=== PATIENT | male | born 1990 | race Caucasian/White ===

== ENCOUNTER 2019-09-22 10:55 | Emergency (ER) | payer MEDICAID, SELFPAY ==
[2019-09-22 11:00] VITALS: BP 146/83; PULSE 97; RESP 18; TEMP 36.5; O2SAT 99; BMI 27.3
--- NOTE | 2019-09-22 11:12 | HMH.EDGENADL ---
ED Disposition Clinical Impression: Intermittent headache Disposition: Home, Self-Care Condition on Discharge: Good Instructions: DI for Headache Additional Instructions: Tylenol or ibuprofen for headache. Additional instructions for HEADACHE: See your physician as soon as possible for further evaluation. Return immediately if worsening headache, vomiting, problems with vision or speech, fever, numbness or weakness of the extremities, neck pain or stiffness. Referrals: PCP,No [Primary Care Provider] - - Critical Care Critical Care Time: No Attestation: On 09/22/19, the high probability of a clinically significant, sudden or life threatening deterioration of the following system(s) required my full and direct attention, intervention and personal management. The time I documented below is in addition to time spent performing reported procedures but includes the following listed in this critical care notation. Medical Decision Making - Jim Inquiry Pt receiving controlled substance: No Vital Signs: 09/22/19 11:00 Temperature 97.7 F Temperature Source Oral Pulse Rate [Right] 97 H Respiratory Rate 18 Blood Pressure [Right Arm] 146/83 H Blood Pressure Mean [Right Arm] 104 Blood Pressure Source [Right Arm] Automatic Cuff 02 Sat by Pulse Oximetry 99 Oxygen Delivery Method Room Air Medical Decision Narrative: At this point, the patient's headaches sound benign. Nothing in his history suggests to me meningitis or amoebic infection of the brain. I do not feel that he needs any imaging or diagnostic testing. I certainly do not feel a lumbar puncture is indicated at this point. I discussed this at length with the patient and he seems less anxious after this discussion. General Adult HPI - General Chief complaint: Headache Stated complaint: GALVAN,dizzy, ear pain Time Seen by Provider: 09/22/19 11:12 Mode of Arrival: Ambulatory Limitations: No Limitations Description of Symptoms (Recalled from ER Triage Doc. by RN): PATIENT PRESENTS WITH EPISODIC HEADACHES, AND CONSTANT LEFT EAR PAIN/PRESSURE SINCE THE OF THIS MONTH AFTER SWIMMING IN A FRIEND'S POOL. HE STATES HE BELIEVES HE HAS A BRAIN EATING EMOBIA WHICH HE READ ABOUT ON THE INTERNET. PATIENT HAS NAD AT THIS. A/O X3, GCS 15. NIH 0. NO DEFICITS OTHERWISE. PATIENT DENIES HEADACHE AT THIS TIME, BUT STATES HE HAS PRESSURE IN HIS LEFT EAR - History of Present Illness HPI narrative: The patient is concerned that he had a brain eating amoeba infection. He says that he went swimming in a friend's aboveground swimming pool on Monday 1 week ago. Since then he has had intermittent left-sided headaches and intermittent pressure behind his left ear. No fever. No diffuse headache. No stiff neck. No nausea or vomiting. No visual disturbances. No numbness or weakness. He says the pool appears clean and as far as he knows the pool is well-maintained and chlorinated. He says he suffers from severe anxiety and looked his symptoms up on the Internet and stated that he was worried that his symptoms could be from an amoeba infection of the brain. He says this is made him even more severely anxious. He becomes tearful when he said this. - Related Data Home Medications Medication Instructions Recorded Confirmed Omeprazole [Omeprazole 40mg 40 mg PO DAILY 05/02/19 09/22/19 Capsule] Allergies Allergy/AdvReac Type Severity Reaction Status Date / Time NO KNOWN ALLERGIES - NKA Allergy Mild Uncoded 02/28/17 15:28 [facility] History - Hepatitis A Screen Drug use history?: No High risk sexual behaviors?: No History of sexually transmitted infection?: No Currently employed?: No Childcare worker?: No Do you have indoor plumbing?: Yes Do you have electricity?: Yes Attestation statement:: This patient has been screened for Hepatitis A risk factors. I have reviewed the patient's past medical history: Yes - Social History Smoking Status: Current ever
[2019-09-22 11:48] VITALS: BP 139/83; PULSE 79; RESP 18; TEMP 36.6; O2SAT 100
== END 2019-09-22 11:48 | disposition home or self-care (01) ==
PROVIDERS: Emergency Provider Emergency Medicine
DX: H92.02 Otalgia, left ear (principal); R51 Headache; F17.210 Nicotine dependence, cigarettes, uncomplicated
CPT/HCPCS: 99281

== ENCOUNTER 2019-10-24 13:48 | Emergency (ER) | payer MEDICAID, SELFPAY ==
[2019-10-24 14:30] VITALS: BP 130/76; PULSE 71; RESP 19; TEMP 36.8; O2SAT 99; BMI 26.9
--- NOTE | 2019-10-24 14:40 | HMH.EDUTC ---
[facility] [place] Clinical Impression: Acute bacterial sinusitis Disposition: Home, Self-Care Condition on Discharge: Good Instructions: Sinusitis, Sinus Headache, DI for Sinusitis, Prednisone, Amoxicillin and Clavulanic Acid Additional Instructions: *Monitor Temp, Over the counter Motrin or Tylenol as directed/as needed Tylenol every 4 hours and Motrin every 6 hours (as long as your family doctor has told you that you can take it) for fever or pain. and straight to ER if unable to lower temp less than 101.0 after medication given *Warm salt water gargles may help to soothe the throat *Throat Lozenges *Warm fluids like tea with honey may help to soothe the throat *Sleep elevated *Humidifier/Vaporizer *Flonase 2 sprays in each nostril daily but be aware that it may take 2-3 days before you notice improvement Start antibiotic. Sinus infections may take 2-3 days to notice much improvement so be sure to use conservative measures as discussed for symptoms Lots of Fluids Sleep elevated Humidifer/vaporizer Augmentin can cause GI effects. Probiotics may help to prevent these symptoms Follow up with family doctor if no improvement or any worsening of symptoms Follow up IMMEDIATELY for new or worsening symptoms or no Noticeable improvement over the next 48-72 hours. 911 for difficulty breathing or swallowing Prescriptions: Amoxicillin/Potassium Clav [Augmentin 875-125 Tablet] 1 tab PO Q12H #20 tab Transmission Status: Received by [id number] Fluticasone Propionate [Flonase 50mcg nasal spray 16gm] 1 - 2 spr NS DAILY #1 bottle Transmission Status: Received by [id number] methylPREDNISolone [Medrol] 4 mg PO DIRECTED #21 pack Transmission Status: Received by [id number] Referrals: PCP,No [Primary Care Provider] - As needed Forms: Work/School Release Medical Decision Making - Jim Inquiry Pt receiving controlled substance: No Jim was queried for this patient: No Vital Signs: 10/24/19 14:30 10/24/19 14:56 Temperature 98.2 F 98.2 F Temperature Source Oral Pulse Rate 71 Pulse Rate [Right Brachial] 71 Respiratory Rate 19 19 Blood Pressure 130/76 Blood Pressure [Right Arm] 130/76 Blood Pressure Mean [Right Arm] 94 Blood Pressure Source [Right Arm] Automatic Cuff Blood Pressure Position [Right Arm] Sitting 02 Sat by Pulse Oximetry 99 Oxygen Delivery Method Room Air [facility] [place] HPI - General Stated complaint: Sore throat, cough, congestion Time Seen by Provider: 10/24/19 14:41 Mode of Arrival: Ambulatory Source of Information: Patient Limitations: No Limitations Description of Symptoms (Recalled from Triage Doc. by RN): PATIENT C/O POSSIBLE SINUS INFECTION X 2 DAYS HEENT Symptoms (Recalled from RN notes): Yes Resp Symptoms (Recalled from RN notes): No Skin Symptoms (Recalled from RN notes): No MS Symptoms (Recalled from RN notes): No Functional Status (Recalled from RN notes): WNL - History of Present Illness Provider Complaint: Paitent states that he thinks he may have a sinus infection States that he has been having sinus pain and pressure along with headache for over a week and got worse since yesterday States that today the pressure feeling is worse so he came in - Related Data Home Medications Medication Instructions Recorded Confirmed Omeprazole [Omeprazole 40mg 40 mg PO DAILY 05/02/19 10/24/19 Capsule] Previous Rx's Medication Instructions Recorded Amoxicillin/Potassium Clav 1 tab PO Q12H #20 tab 10/24/19 [Augmentin 875-125 Tablet] Fluticasone Propionate [Flonase 1 - 2 spr NS DAILY #1 bottle 10/24/19 50mcg nasal spray 16gm] methylPREDNISolone [Medrol] 4 mg PO DIRECTED #21 pack 10/24/19 Allergies Allergy/AdvReac Type Severity Reaction Status Date / Time No Known Allergies Allergy Verified 10/24/19 14:33 - Worker's Comp Is this a Worker's Comp case?: No [facility] History - Hepatitis A Screen Drug use history?: No High
[2019-10-24 14:56] VITALS: BP 130/76; PULSE 71; RESP 19; TEMP 36.8; O2SAT 99
== END 2019-10-24 15:01 | disposition home or self-care (01) ==
LOC: ER 14:02 → UTC 14:03
PROVIDERS: Emergency Provider Nurse Practitioner
DX: J01.90 Acute sinusitis, unspecified (principal); F17.210 Nicotine dependence, cigarettes, uncomplicated
CPT/HCPCS: 99201

== ENCOUNTER 2020-03-27 18:27 | Emergency (ER) | payer OTHER, SELFPAY ==
[2020-03-27 18:27] VITALS: BP 154/96; PULSE 97; RESP 18; TEMP 36.7; O2SAT 99; BMI 27.0
--- NOTE | 2020-03-27 18:30 | PC.NURSE ---
pt gone to radiology
--- NOTE | 2020-03-27 18:33 | PC.NURSE ---
notified rad of CT stroke protocol
[2020-03-27 18:35] VITALS: BMI 27.0
--- NOTE | 2020-03-27 18:35 | CT_ITS ---
PROCEDURE: CT HEAD/BRAIN WO CON CLINICAL INDICATION: R sided facial droop Right-sided facial weakness and root with tongue numbness COMPARISON: No exams were available for comparison TECHNIQUE: Axial images obtained. All CT scans at the facility use one or more dose reduction, viz: automated exposure control, ma/kV adjustment per patient size (including targeted exams where dose is matched to indication, i.e. head), or iterative reconstruction technique. FINDINGS: No midline shift, mass effect, intracranial hemorrhage, hydrocephalus, or extra-axial fluid collection is evident. The calvarium has an unremarkable appearance. No mastoid effusion. No sinus air-fluid level. IMPRESSION: No acute intracranial finding Dictated by: Chacho Hernandez MD 03/27/2020 23:05 Chacho Hernandez MD in [place] 03/27/2020 23:05
--- NOTE | 2020-03-27 18:37 | PC.NURSE ---
fsbs 93
--- NOTE | 2020-03-27 18:37 | PC.NURSE ---
pt to CT
--- NOTE | 2020-03-27 18:40 | HMH.EDNEU ---
ED Disposition Clinical Impression: Facial paralysis/[place] palsy Disposition: Home, Self-Care Condition on Discharge: Good Prescriptions: predniSONE [Deltasone 10mg tablet] 10 mg PO DAILY #45 tab Transmission Status: Pending to [id number] Referrals: PCP,No [Primary Care Provider] - - Critical Care Critical Care Time: No Attestation: On 03/27/20, the high probability of a clinically significant, sudden or life threatening deterioration of the following system(s) required my full and direct attention, intervention and personal management. The time I documented below is in addition to time spent performing reported procedures but includes the following listed in this critical care notation. Medical Decision Making - Medical Records Medical records reviewed: Yes: I reviewed the patient's medical records. - Jim Inquiry Pt receiving controlled substance: No Vital Signs: 03/27/20 18:27 Temperature 98.0 F Temperature Source Oral Pulse Rate [Right Radial] 97 H Respiratory Rate 18 Blood Pressure [Right Arm] 154/96 H Blood Pressure Mean [Right Arm] 115 Blood Pressure Source [Right Arm] Automatic Cuff Blood Pressure Position [Right Arm] Sitting 02 Sat by Pulse Oximetry 99 Oxygen Delivery Method Room Air - Lab Data Lab Results 03/27/20 18:36: WBC 12.5 H, RBC 5.66, Hgb 16.8, Hct 49.6, MCV 87.6, MCH 29.7, MCHC 33.9, RDW 13.4, Plt Count 331, MPV 7.5, Neut % (Auto) 63.5, Lymph % (Auto) 30.8, [place] % (Auto) 4.3, Eos % (Auto) 1.0, Baso % (Auto) 0.4, Neut # (Auto) 7.9 H, Lymph # (Auto) 3.8, [place] # (Auto) 0.5, Eos # (Auto) 0.1, Baso # (Auto) 0.1 03/27/20 18:36: PT 11.7, INR 1.06 03/27/20 18:36: Sodium 141, Potassium 3.6, Chloride 103, Carbon Dioxide 26, Anion Gap 15.6 H, BUN 12, Creatinine 1.00, Estimated Creat Clear 128, Estimated GFR 88, Est GFR ( Amer) 107, Glucose 95, Calcium 10.3 H 03/27/20 18:37: POC Glucose 93 Result diagrams: 03/27/20 18:36 03/27/20 18:36 Orders (Tests/Meds): ORDERS Category Date Time Status CT head/brain wo con Stat Cat Scan 03/27/20 18:35 Taken CXR --portable [XR chest portable] Stat Exams 03/27/20 19:16 Ordered Urinalysis and Microscopic Stat Lab 03/27/20 19:17 Stop Req - CT Data CT Scan: Head Time Received: 19:[address] Reviewed: Yes: I have viewed the radiologist's interpretation Preliminary Findings: Normal/NAD Medical Decision Narrative: 29yo M with unilateral paralysis of the face. Some sparing of the right forehead, though incomplete. Patient is in no acute distress otherwise the remainder of his NIHSS exam is benign. CT head is negative. 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 We will start the patient on steroids. Patient does have a white count of 12.5, which could be business banking representative of a viral etiology for his neurologic issue. Chest x-ray and urinalysis were ordered to further rule out any bacterial infection. Further discussion with the patient, he states he was evaluated by his PCP yesterday and diagnosed with viral URI. He was not started on antibiotics. Discussed Sullivan's palsy, taking steroids, eyedrops, possibly taping his right eye closed if not closing completely naturally. Patient voiced understanding. Agrees to follow-up with his PCP early next week for follow-up. Neuro HPI - General Stated Complaint: right side face numbness Time Seen by Provider: 03/27/20 18:40 Source of Information: Patient Limitations: No Limitations - History of Present Illness HPI Narrative: 29yo M without significant past medical history presents to the emergency department secondary to facial paralysis and numbness that he noticed when he woke up at 10 AM. Patient reports he went to bed normal last night. Patient further states that the ventral surface of his tongue has felt numb for a week. He states he still has a sensation of taste but it is altered from his perception of baseline. He reports mild facial numbness to the right side of his face. Megan
[2020-03-27 18:44] LABS: POC Glucose,Bedside 93 (70-110)
[2020-03-27 18:48] LABS: Basophils # 0.1 K/mm3 (0-0.2); Basophils % 0.4 % (0.1-2.0); Chloride 103 mmol/L (98-107); Eosinophils # 0.1 K/mm3 (0.0-0.4); Hematocrit 49.6 % (42.0-52.0); Hemoglobin 16.8 g/dL (14.1-18.0); Lymphocytes # 3.8 K/mm3 (0.7-4.5); Lymphocytes % 30.8 % (10-50); Mean Corpuscular HGB Conc 33.9 g/dL (31.8-35.4); Mean Corpuscular Hemoglobin 29.7 pg (27.0-31.2); Mean Corpuscular Volume 87.6 fl (80-94); Mean Platelet Volume 7.5 fl (7.4-10.4); Monocytes # 0.5 K/mm3 (0.1-1.0); Monocytes % 4.3 % (1.7-9.3); Neutrophils # 7.9 K/mm3 (1.8-7.8); Neutrophils % 63.5 % (37.0-80.0); Platelet Count 331 K/mm3 (142-424); Red Blood Count 5.66 M/mm3 (4.60-6.20); Red Cell Distribution Width 13.4 % (11.5-17.5); White Blood Count 12.5 K/mm3 (4.8-10.8)
--- NOTE | 2020-03-27 18:48 | PC.NURSE ---
pt returning from rad.
[2020-03-27 18:49] LABS: Potassium 3.6 mmoL/L (3.5-5.1); Sodium 141 mmol/L (136-145)
[2020-03-27 18:51] LABS: Blood Urea Nitrogen 12 mg/dl (9-20); Creatinine Clearance Estimated 128 mL/min (50-200); Estimated Glomerular Filt Rate 88 ml/min (>60); GFR (African American) 107 ML/MIN (>60)
[2020-03-27 18:52] LABS: Anion Gap 15.6 mEq/L (5-15); Calcium 10.3 mg/dl (8.4-10.2); Carbon Dioxide 26 mmol/L (22.0-30.0); Glucose 95 mg/dl (74-100)
[2020-03-27 18:56] LABS: Prothrombin Time 11.7 seconds (9.4-11.8)
[2020-03-27 18:57] LABS: INR 1.06 (0.9-1.1)
--- NOTE | 2020-03-27 18:59 | PC.NURSE ---
JOHN CASTLE speaking with Darinel
--- NOTE | 2020-03-27 19:02 | PC.NURSE ---
report given to veronicarn
--- NOTE | 2020-03-27 19:16 | XR_ITS ---
PROCEDURE: XR CHEST PORTABLE CLINICAL HISTORY: leukocytosis Respiratory infection, smoker COMPARISON: CR XR CHEST 2V from 05/02/2019 FINDINGS: The cardiomediastinal silhouette and pulmonary vascularity are within normal limits. The lungs are clear without infiltrates, suspicious nodules, or pleural effusions. No acute bony abnormalities. IMPRESSION: No acute findings. Dictated by: Chacho Hernandez MD 03/27/2020 23:06 Chacho Hernandez MD in [facility] 03/27/2020 23:06
[2020-03-27 19:53] VITALS: BP 120/82; PULSE 81; RESP 20; TEMP 36.6; O2SAT 98
== END 2020-03-27 19:54 | disposition home or self-care (01) ==
PROVIDERS: Emergency Provider Family Medicine
DX: G51.0 Bell's palsy (principal); R51.9 Headache, unspecified; F17.210 Nicotine dependence, cigarettes, uncomplicated
CPT/HCPCS: 70450; 71045; 80048; 82962; 85025; 85610; 99283

== ENCOUNTER 2020-06-21 17:33 | Emergency (ER) | payer OTHER, SELFPAY ==
[2020-06-21 17:54] VITALS: RESP 14; TEMP 36.8; O2SAT 97; BMI 29.5
--- NOTE | 2020-06-21 17:58 | XR_ITS ---
PROCEDURE: XR HAND RT MIN 3V CLINICAL INDICATION: LAC ON HAND Injury with pain COMPARISON: No exams were available for comparison FINDINGS: No fracture or dislocation. No lytic or blastic change. There is normal mineralization. The joint spaces are well-preserved. No significant degenerative/arthritic changes. No erosive changes evident. Other findings:No radiopaque foreign body apparent IMPRESSION: No acute findings. Dictated by: Chacho Hernandez MD 06/22/2020 05:37 Chacho Hernandez MD in [place] 06/22/2020 05:37
--- NOTE | 2020-06-21 18:46 | HMH.EDUTC ---
[facility] [place] Clinical Impression: Laceration of right hand Qualifiers: Encounter type: initial encounter Foreign body presence: without foreign body Qualified Code(s): S61.411A - Laceration without foreign body of right hand, initial encounter Disposition: Home, Self-Care Condition on Discharge: Good Instructions: How to Care for a Laceration Prior to Repair, DI for Laceration Repair -- Simple Additional Instructions: Keep the wound clean and dry. Keep a dressing on it if you are going to be getting it dirty. Watch the for signs of infection, such as redness, swelling, drainage, fever. etc. Take tylenol or ibuprofen for pain. Follow up with your regular doctor. Return in 10 days to have the sutures removed. GO TO THE ER FOR ANY WORSENING SYMPTOMS OR CONCERNS. Prescriptions: cephALEXin [cephALEXin 500mg capsule] 500 mg PO Q6H 10 Days #40 cap Transmission Status: Received by [id number] Referrals: PCP,No [Primary Care Provider] - Forms: Work/School Release Time of Disposition: 18:51 Medical Decision Making - Medical Records Medical records reviewed: No: I reviewed the patient's medical records. - Jim Inquiry Pt receiving controlled substance: No Vital Signs: 06/21/20 17:54 06/21/20 19:01 Temperature 98.3 F 98.3 F Temperature Source Oral Oral Pulse Rate 78 Respiratory Rate 14 14 Blood Pressure 150/88 H 02 Sat by Pulse Oximetry 97 Oxygen Delivery Method Room Air Room Air Orders (Tests/Meds): ED MEDICATIONS Discontinued Medications Generic Name Dose Route Start Last Admin Trade Name Freq PRN Reason Stop Dose Admin Tetanus/Reduced Diphtheria/Acell Pertussis 0.5 ml 06/21/20 18:49 06/21/20 18:57 Tet/Diphth/Pert-Adult 0.5ml Syringe IM 06/21/20 18:50 0.5 ml .ONCE ONE Administration ORDERS Category Date Time Status XR hand RT min 3V Stat Exams 06/21/20 17:58 Taken [facility] [place] HPI - General Stated complaint: Cut side of right hand Time Seen by Provider: 06/21/20 18:25 Mode of Arrival: Ambulatory Source of Information: Patient Limitations: No Limitations Description of Symptoms (Recalled from Triage Doc. by RN): cut hand HEENT Symptoms (Recalled from RN notes): No Resp Symptoms (Recalled from RN notes): No Skin Symptoms (Recalled from RN notes): Yes MS Symptoms (Recalled from RN notes): No Functional Status (Recalled from RN notes): na - History of Present Illness Provider Complaint: He states that he was washing dishes and a glass broke while his hand was down in it. He has a laceration on the lateral side of the palm of his right hand. He doesn't think that his tetatnus immunization is up to date. - Related Data Home Medications Medication Instructions Recorded Confirmed Omeprazole [Omeprazole 40mg 40 mg PO DAILY 05/02/19 03/27/20 Capsule] Previous Rx's Medication Instructions Recorded predniSONE [Deltasone 10mg tablet] 10 mg PO DAILY #45 tab 03/27/20 cephALEXin [cephALEXin 500mg 500 mg PO Q6H 10 Days #40 cap 06/21/20 capsule] Allergies Allergy/AdvReac Type Severity Reaction Status Date / Time No Known Allergies Allergy Verified 10/24/19 14:33 - Worker's Comp Is this a Worker's Comp case?: No [facility] History - Hepatitis A Screen Drug use history?: No High risk sexual behaviors?: No History of sexually transmitted infection?: No Currently employed?: No Childcare worker?: No Do you have indoor plumbing?: Yes Do you have electricity?: Yes Attestation statement:: This patient has been screened for Hepatitis A risk factors. I have reviewed the patient's past medical history: Yes - Social History Smoking Status: Current every day smoker Tobacco Type: cigarettes # Packs/Day (cigarettes): 1 Alcohol Intake: never Occupational Status: other ROS Obtained: Yes All systems reviewed & no additional complaints - Constitutional Constitutional: Denies chills, Denies fever(s) - Integumentary/Breas
[2020-06-21 19:01] VITALS: BP 150/88; PULSE 78; RESP 14; TEMP 36.8; O2SAT 97
== END 2020-06-21 19:03 | disposition home or self-care (01) ==
PROVIDERS: Emergency Provider Nurse Practitioner Family
DX: S61.411A Laceration without foreign body of right hand, initial encounter (principal); W25.XXXA Contact with sharp glass, initial encounter; Y92.010 Kitchen of single-family (private) house as the place of occurrence of the external cause; F17.210 Nicotine dependence, cigarettes, uncomplicated; Z23 Encounter for immunization
CPT/HCPCS: 12001; 73130; 90715; 96372; 99202; G0463

== ENCOUNTER 2020-06-28 11:23 | Emergency (ER) | payer OTHER, SELFPAY ==
[2020-06-28 11:25] VITALS: BP 122/88; PULSE 86; RESP 18; TEMP 36.6; O2SAT 99; BMI 28.8
[2020-06-28 11:32] VITALS: BP 122/88; PULSE 86; RESP 18; TEMP 36.6; O2SAT 99
== END 2020-06-28 11:35 | disposition home or self-care (01) ==
LOC: UTC 11:24
PROVIDERS: Emergency Provider Nurse Practitioner
DX: S61.411D Laceration without foreign body of right hand, subsequent encounter (principal)

== ENCOUNTER 2020-07-16 22:51 | Emergency (ER) | payer OTHER, SELFPAY ==
[2020-07-16 23:06] VITALS: BP 149/89; PULSE 79; RESP 18; TEMP 36.8; O2SAT 99; BMI 26.6
--- NOTE | 2020-07-16 23:09 | CT_ITS ---
PROCEDURE INFORMATION: Exam: CT Abdomen And Pelvis Without Contrast Exam date and time: 07/16/2020 11:09 PM Age: 30 years old Clinical indication: Abdominal pain; Generalized; Additional info: Ruq/right flank pain TECHNIQUE: Imaging protocol: Computed tomography of the abdomen and pelvis without contrast. Radiation optimization: All CT scans at this facility use at least one of these dose optimization techniques: automated exposure control; mA and/or kV adjustment per patient size (includes targeted exams where dose is matched to clinical indication); or iterative reconstruction. COMPARISON: No relevant prior studies available. FINDINGS: Lungs: There is a pulmonary parenchymal calcification in the right lower lobe consistent with remote granulomatous organism exposure. The visualized lung bases are otherwise clear. Pleural spaces: There are no pleural effusions present. Heart: The visualized portions of the heart are unremarkable. There is no evidence of pericardial fluid collections. Mediastinal space: Apparent mild distal esophageal wall thickening could be on the basis of incomplete distension, small hiatal hernia but cannot exclude mild esophagitis. Liver: Evaluation of the liver is limited without intravenous contrast but the liver is within normal limits for this noncontrast study. Gallbladder and bile ducts: The gallbladder is contracted/decompressed. Pancreas: Noncontrast images of the pancreas are within range of normal. Spleen: The spleen is normal. An accessory splenule is present. Adrenal glands: The adrenal glands are normal. Kidneys and ureters: The kidneys are normal. Stomach and bowel: Apparent mild gastric mural thickening could be on the basis of incomplete distension but cannot exclude gastritis or other inflammatory or infiltrative process. Correlate clinically. The duodenum is unremarkable. Lack of gastrointestinal contrast limits evaluation of bowel. The colon is normal. Unopacified loops of small bowel within range of normal. Appendix: A normal appendix is identified. Intraperitoneal space: There is no evidence of free intraperitoneal or pelvic fluid. No evidence of intraperitoneal free air. Vasculature: No abdominal aortic aneurysm. Lymph nodes: There is no evidence of pathologic adenopathy. There are a few scattered mesenteric and right lower quadrant lymph nodes. A nonspecific mesenteric lymph node measures 10.5 mm in short axis seen on series 601, image 33, minimally prominent. Urinary bladder: The bladder is normal. Reproductive: The prostate and seminal vesicles are normal. Bones/joints: There is no evidence of acute fracture. Soft tissues: There is a tiny fat-containing umbilical hernia. No soft tissue swelling is identified. Other findings: Evaluation is limited by the lack of intravenous contrast. IMPRESSION: 1. Apparent mild distal esophageal wall thickening consistent with esophagitis, incomplete distention or possibly small hiatal hernia. Cannot entirely exclude neoplastic process in the appropriate clinical setting. Correlate clinically. 2. Apparent mild gastric mural thickening could be on the basis of incomplete distension but cannot exclude gastritis or other inflammatory or infiltrative process. Correlate clinically. 3. Tiny fat- containing umbilical hernia. 4. A few scattered small nonspecific lymph nodes in the mesenteric fat of the right lower quadrant and central mesentery. A nonspecific mesenteric lymph node measuring 10.5 mm is minimally prominent. Correlate clinically regarding the possibility of mesenteric adenitis.
[2020-07-16 23:12] LABS: Microscopic, Urine URINE MICROSCOPIC (MICROSCOPIC)
[2020-07-16 23:13] LABS: Appearance,Urine CLEAR (Clear); Bilirubin,Urine Negative (Negative); Blood, Urine Negative (Negative); Color,Urine YELLOW (Yellow); Glucose,Urine (UA) Negative (Negative); Ketones,Urine Negative (Negative); Leukocyte Esterase,Urine Negative (Negative); Nitrate,Urine Negative (Negative); Protein,Urine Negative (Negative); Specific Gravity, Urine 1.025 (1.005-1.030)
[2020-07-16 23:29] LABS: Basophils # 0.1 K/mm3 (0-0.2); Basophils % 0.5 % (0.1-2.0); Eosinophils # 0.2 K/mm3 (0.0-0.4); Eosinophils % 2.1 % (0.1-12.0); Hemoglobin 14.8 g/dL (14.1-18.0); Lymphocytes # 4.2 K/mm3 (0.7-4.5); Lymphocytes % 36.8 % (10-50); Mean Corpuscular HGB Conc 34.4 g/dL (31.8-35.4); Mean Corpuscular Hemoglobin 29.1 pg (27.0-31.2); Mean Corpuscular Volume 84.8 fl (80-94); Mean Platelet Volume 7.5 fl (7.4-10.4); Monocytes # 0.8 K/mm3 (0.1-1.0); Neutrophils # 6.2 K/mm3 (1.8-7.8); Neutrophils % 53.6 % (37.0-80.0); Platelet Count 255 K/mm3 (142-424); Red Blood Count 5.08 M/mm3 (4.60-6.20); Red Cell Distribution Width 13.6 % (11.5-17.5); White Blood Count 11.5 K/mm3 (4.8-10.8)
[2020-07-16 23:31] LABS: Bacteria,Urine Trace /lpf; Mucus,Urine 1+ /lpf
[2020-07-16 23:33] LABS: Chloride 106 mmol/L (98-107); Sodium 140 mmol/L (136-145)
[2020-07-16 23:34] LABS: Potassium 3.9 mmoL/L (3.5-5.1)
[2020-07-16 23:36] LABS: Alanine Aminotransferase 46 U/L (12-78); Albumin Level 4.4 g/dl (3.5-5.0); Albumin/Globulin Ratio 1.7 (1.1-1.8); Alkaline Phosphatase 84 U/L (38-126); Anion Gap 10.9 mEq/L (5-15); Aspartate Amino Transferase 40 U/L (17-59); Bilirubin,Total 0.5 mg/dl (0.2-1.3); Blood Urea Nitrogen 14 mg/dl (9-20); Calcium 9.7 mg/dl (8.4-10.2); Carbon Dioxide 27 mmol/L (22.0-30.0); Creatinine Clearance Estimated 139 mL/min (50-200); Estimated Glomerular Filt Rate 99 ml/min (>60); GFR (African American) 120 ML/MIN (>60); Globulin 2.6 g/dL (1.3-3.2); Glucose 93 mg/dl (74-100); Lipase 127 U/L (23-300)
--- NOTE | 2020-07-17 00:33 | HMH.EDGENADL ---
ED Disposition Clinical Impression: Mesenteric adenitis Gastritis Qualifiers: Gastritis type: unspecified gastritis Chronicity: acute Gastritis bleeding: without bleeding Qualified Code(s): K29.00 - Acute gastritis without bleeding Disposition: Home, Self-Care Condition on Discharge: Good Instructions: DI for Acute Abdominal Pain Additional Instructions: Continue your omeprazole at home. Return with worsening symptoms or concerns. Follow up with a PCP and GI for your gastritis/esophagitis. Referrals: Juan Miller MD [Staff Physician] - Christina Agustin APRN [Nurse Practitioner] - Provider,MD Susana [Primary Care Provider] - - Critical Care Critical Care Time: No Attestation: On 07/16/20, the high probability of a clinically significant, sudden or life threatening deterioration of the following system(s) required my full and direct attention, intervention and personal management. The time I documented below is in addition to time spent performing reported procedures but includes the following listed in this critical care notation. Medical Decision Making - Jim Inquiry Pt receiving controlled substance: No Vital Signs: 07/16/20 23:06 Temperature 98.2 F Temperature Source Oral Pulse Rate [Right Brachial] 79 Respiratory Rate 18 Blood Pressure [Right Arm] 149/89 H Blood Pressure Mean [Right Arm] 109 Blood Pressure Source [Right Arm] Automatic Cuff Blood Pressure Position [Right Arm] Sitting 02 Sat by Pulse Oximetry 99 Oxygen Delivery Method Room Air - Lab Data Lab Results 07/16/20 23:05: Urine Color Yellow, Urine Appearance Clear, Urine pH 6.0, Ur Specific [place] 1.025, Urine Protein Negative, Urine Glucose (UA) Negative, Urine Ketones Negative, Urine Blood Negative, Urine Nitrate Negative, Urine Bilirubin Negative, Urine Urobilinogen 1.0, Ur Leukocyte Esterase Negative, Urine WBC 3-5, Urine Bacteria Trace, Urine Mucus 1+ 07/16/20 23:22: WBC 11.5 H, RBC 5.08, Hgb 14.8, Hct 43.0, MCV 84.8, MCH 29.1, MCHC 34.4, RDW 13.6, Plt Count 255, MPV 7.5, Neut % (Auto) 53.6, Lymph % (Auto) 36.8, Pratt % (Auto) 7.0, Eos % (Auto) 2.1, Baso % (Auto) 0.5, Neut # (Auto) 6.2, Lymph # (Auto) 4.2, Pratt # (Auto) 0.8, Eos # (Auto) 0.2, Baso # (Auto) 0.1 07/16/20 23:22: Sodium 140, Potassium 3.9, Chloride 106, Carbon Dioxide 27, Anion Gap 10.9, BUN 14, Creatinine 0.90, Estimated Creat Clear 139, Estimated GFR 99, Est GFR ( Amer) 120, Glucose 93, Calcium 9.7, Total Bilirubin 0.5, AST 40, ALT 46, Alkaline Phosphatase 84, Total Protein 7.0, Albumin 4.4, Globulin 2.6, Albumin/Globulin Ratio 1.7, Lipase 127 Result diagrams: 07/16/20 23:22 07/16/20 23:22 Orders (Tests/Meds): ED MEDICATIONS Generic Name Dose Route Start Last Admin Trade Name Freq PRN Reason Stop Dose Admin Lactated Ringer's 1,000 mls @ 999 mls/hr 07/16/20 23:15 07/16/20 23:24 Lactated Ringer's 1000 Ml Bag IV 07/17/20 00:15 999 mls/hr .Q1H1M JUNIOR Administration Sodium Chloride 8 ml 07/17/20 01:33 Sodium Chloride 0.9% 10ml Vial IV 08/16/20 01:32 NEEDED PRN dilute pepcid Discontinued Medications Generic Name Dose Route Start Last Admin Trade Name Freq PRN Reason Stop Dose Admin Belladonna Alkaloids 60 ml 07/17/20 01:33 Gi Cocktail 60ml Udc PO 07/17/20 01:34 ONCE ONE Famotidine 20 mg 07/17/20 01:33 Famotidine 20mg/2ml Vial IV 07/17/20 01:34 ONCE ONE Famotidine 20 mg 07/17/20 01:38 Famotidine 20mg Tablet PO 07/17/20 01:39 ONCE ONE Ketorolac Tromethamine 30 mg 07/16/20 23:11 07/16/20 23:24 Ketorolac 30mg/Ml Vial IV 07/16/20 23:12 30 mg ONCE ONE Administration Ondansetron HCl 4 mg 07/16/20 23:10 07/16/20 23:24 Ondansetron 4mg/2ml Vial IV 07/16/20 23:11 4 mg ONCE ONE Administration Medical Decision Narrative: The patient is a 30 year old otherwise healthy male who presents with right sided abdominal pain. He is awake, alert, hemodynamically
[2020-07-17 01:53] VITALS: BP 134/82; PULSE 71; RESP 18; TEMP 36.8; O2SAT 99
== END 2020-07-17 01:54 | disposition home or self-care (01) ==
PROVIDERS: Emergency Provider Emergency Medicine
DX: I88.0 Nonspecific mesenteric lymphadenitis (principal); K29.00 Acute gastritis without bleeding
CPT/HCPCS: 74176; 80053; 81001; 83690; 85025; 96365; 96375; 99283; J2405

== ENCOUNTER 2021-03-19 09:16 | Emergency (ER) | payer OTHER, SELFPAY ==
[2021-03-19 10:15] VITALS: BP 136/80; PULSE 102; RESP 21; TEMP 37.2; O2SAT 99; BMI 26.6
--- NOTE | 2021-03-19 10:36 | HMH.EDUTC ---
[facility] [place] Clinical Impression: Sinusitis Qualifiers: Sinusitis location: unspecified location Chronicity: unspecified Qualified Code(s): J32.9 - Chronic sinusitis, unspecified Disposition: Home, Self-Care Condition on Discharge: Good Instructions: Sinusitis, DI for Sinusitis, DI for Fever (Symptom) -- Adult, Amoxicillin and Clavulanic Acid Additional Instructions: *Monitor Temp, Over the counter Motrin or Tylenol as directed/as needed Tylenol every 4 hours and Motrin every 6 hours (as long as your family doctor has told you that you can take it) for fever or pain. and straight to ER if unable to lower temp less than 101.0 after medication given *Warm salt water gargles may help to soothe the throat *Throat Lozenges *Warm fluids like tea with honey may help to soothe the throat *Sleep elevated *Humidifier/Vaporizer *Flonase 2 sprays in each nostril daily but be aware that it may take 2-3 days before you notice improvement *Bromfed may cause drowsiness. Know how it effects you (your child) before driving, caring for small child, or sending your child to school. Not other antihistamines/allergy medications while taking bromfed Your throat swab was sent for culture. Those results are typically sent to your primary care. Be sure to follow up in 2-3 days with your family doctor/primary care physician if no improvement so they can review those result and treat if necessary. If you don?t have a primary care doctor, I recommend you get one but in the mean time, you will have to return to a walk in clinic Follow up IMMEDIATELY for new or worsening symptoms or no Noticeable improvement over the next 48-72 hours. 911 for difficulty breathing or swallowing You were tested for today for COVID19 your test result should be back in the next 24-48 hours, you may check the [facility] my Health portal for your results if you have trouble logging on or seeing your results you may call You was given a handout with instructions for Self Quarantine and Self isolation for while you wait on test results and what to do if they are positive If you are positive the Health Dept will be contacting you also Make sure to take your Vitamins Vit. C Vit D and Zinc if you can take them Prescriptions: Amoxicillin/Potassium Clav [Augmentin 875-125 Tablet] 1 tab PO Q12H 10 Days #20 tab Transmission Status: [id number] Brompheniramine/Pseudoephed/Dm [Bromfed Dm Cough Syrup] 5 - 10 ml PO Q46H #240 ml Transmission Status: Received by [id number] methylPREDNISolone [Medrol 4mg tab] 4 mg PO DIRECTED #21 tab Transmission Status: Received by [id number] Referrals: Armando Madden MD [Primary Care Provider] - As needed Forms: Work/School Release Time of Disposition: 10:46 Medical Decision Making - Jim Inquiry Pt receiving controlled substance: No Jim was queried for this patient: No Vital Signs: 03/19/21 10:15 Temperature 99.0 F Temperature Source Oral Pulse Rate [Right Brachial] 102 H Respiratory Rate 21 Blood Pressure [Right Arm] 136/80 Blood Pressure Mean [Right Arm] 98 Blood Pressure Source [Right Arm] Automatic Cuff Blood Pressure Position [Right Arm] Sitting 02 Sat by Pulse Oximetry 99 Oxygen Delivery Method Room Air - Lab Data Lab results reviewed: Yes: I reviewed the patient's lab results. Orders (Tests/Meds): ORDERS Category Date Time Status Covid-19 Nasal PCR ([facility]) Routine Lab 03/19/21 10:20 Received [facility] [place]PI - General Stated complaint: fever, chest congestion, soa Time Seen by Provider: 03/19/21 10:36 Mode of Arrival: Ambulatory Source of Information: Patient Limitations: No Limitations Description of Symptoms (Recalled from Triage Doc. by RN): PATIENT C/O SOA, FEVER AND DRY COUGH SINCE YESTERDAY HEENT Symptoms (Recalled from RN notes): No Resp Symptoms (Recalled from RN notes): Yes Skin Symptoms (Recalled from RN notes): No MS Symptoms (Recalled from RN notes): No Func
[2021-03-19 10:56] LABS: UTC Influenza A Antigen Negative (Negative); UTC Influenza B Antigen Negative (Negative)
[2021-03-19 11:20] VITALS: BP 136/80; PULSE 102; RESP 21; TEMP 37.2; O2SAT 99
== END 2021-03-19 11:21 | disposition home or self-care (01) ==
PROVIDERS: Emergency Provider Nurse Practitioner; PCP Family Medicine
DX: U07.1 COVID-19 (principal); J32.9 Chronic sinusitis, unspecified
CPT/HCPCS: 87804; 99202; C9803; G0463; U0003; U0005

== ENCOUNTER 2021-04-06 16:39 | Emergency (ER) | payer OTHER, SELFPAY ==
[2021-04-06 16:41] VITALS: BP 126/74; PULSE 89; RESP 18; TEMP 37; O2SAT 97; BMI 27.3
--- NOTE | 2021-04-06 17:06 | HMH.EDGENADL ---
ED Disposition Clinical Impression: Strain of right groin Disposition: Home, Self-Care Condition on Discharge: Good Instructions: DI for Groin Strain Additional Instructions: no lifting/pulling/pushing over 10lbs 1 week follow up pcp Referrals: Armando Madden MD [Primary Care Provider] - - Critical Care Critical Care Time: No Attestation: On 04/06/21, the high probability of a clinically significant, sudden or life threatening deterioration of the following system(s) required my full and direct attention, intervention and personal management. The time I documented below is in addition to time spent performing reported procedures but includes the following listed in this critical care notation. Medical Decision Making - Medical Records Medical records reviewed: Yes: I reviewed the patient's medical records. - Jim Inquiry Pt receiving controlled substance: No Vital Signs: 04/06/21 16:41 Temperature 98.6 F Temperature Source Oral Pulse Rate [Left Radial] 89 Respiratory Rate 18 Blood Pressure [Right Arm] 126/74 Blood Pressure Mean [Right Arm] 91 Blood Pressure Source [Right Arm] Automatic Cuff Blood Pressure Position [Right Arm] Sitting 02 Sat by Pulse Oximetry 97 Oxygen Delivery Method Room Air General Adult HPI - General Chief complaint: PAIN Stated complaint: wc 04/05 INJURED LOWER R SIDE,HERNIA Time Seen by Provider: 04/06/21 16:45 Mode of Arrival: Ambulatory Limitations: No Limitations Description of Symptoms (Recalled from ER Triage Doc. by RN): c/o groin pain after pulling on a cart yesterday at work - History of Present Illness HPI narrative: rt groin selvin suden onset yest at work [employer] pulling on rolling cart that became stuck on floor causing symptoms Onset (ago): day(s) (1) Radiation: non-radiation Severity: moderate Quality: aching Consistency: constant Relieving factors: immobilization Exacerbating factors: movement Associated symptoms: denies other symptoms - Related Data Home Medications Medication Instructions Recorded Confirmed Omeprazole [Omeprazole 40mg 40 mg PO DAILY 05/02/19 03/27/20 Capsule] Previous Rx's Medication Instructions Recorded Amoxicillin/Potassium Clav 1 tab PO Q12H 10 Days #20 tab 03/19/21 [Augmentin 875-125 Tablet] Brompheniramine/Pseudoephed/Dm 5 - 10 ml PO Q46H #240 ml 03/19/21 [Bromfed Dm Cough Syrup] methylPREDNISolone [Medrol 4mg 4 mg PO DIRECTED #21 tab 03/19/21 tab] Allergies Allergy/AdvReac Type Severity Reaction Status Date / Time No Known Allergies Allergy Verified 07/27/20 09:42 [facility] History - Hepatitis A Screen Drug use history?: No High risk sexual behaviors?: No History of sexually transmitted infection?: No Currently employed?: No Childcare worker?: No Do you have indoor plumbing?: Yes Do you have electricity?: Yes Attestation statement:: This patient has been screened for Hepatitis A risk factors. - Social History Smoking Status: Current every day smoker Tobacco Type: cigarettes # Packs/Day (cigarettes): 1 Alcohol Intake: never Substance Use Type: denies use Occupational Status: other ROS Obtained: Yes All systems reviewed & no additional complaints Physical Exam - General General appearance: alert, in no apparent distress - Respiratory Respiratory exam: Absent: respiratory distress, wheezes, stridor - Cardiovascular Cardiovascular exam: Present: regular rate. Absent: bradycardia, tachycardia - Abdominal Exam Abdominal exam: Present: soft. Absent: distention, tenderness - exam: Present: other (rt groin ttp, no hernia, nml gu appearance w/o complaints) - Neurological Exam Neurological exam: Present: alert, oriented X3, CN II-XII intact - Skin Skin exam: Present: warm, intact, normal color. Absent: rash
[2021-04-06 17:32] VITALS: BP 124/76; PULSE 78; RESP 20; TEMP 37; O2SAT 97
== END 2021-04-06 17:33 | disposition home or self-care (01) ==
PROVIDERS: Emergency Provider Emergency Medicine; PCP Family Medicine
DX: S76.211A Strain of adductor muscle, fascia and tendon of right thigh, initial encounter (principal); X50.0XXA Overexertion from strenuous movement or load, initial encounter; Y92.69 Other specified industrial and construction area as the place of occurrence of the external cause; Y99.0 Civilian activity done for income or pay
CPT/HCPCS: 99281

== ENCOUNTER 2021-09-17 11:21 | Emergency (ER) | payer OTHER, SELFPAY ==
--- NOTE | 2021-09-17 11:29 | XR_ITS ---
FINAL REPORT CLINICAL HISTORY: FALL FINDINGS: LEFT ANKLE Three views were obtained. There is no acute fracture or dislocation. The joint spaces appear normal. No soft tissue abnormality is identified. IMPRESSION: No acute process. Reviewed, Interpreted and Dictated by Tai Graham III, MD Transcribed by Nica Gonzalez Authenticated and [facility]
[2021-09-17 12:00] VITALS: BP 127/68; PULSE 75; RESP 17; TEMP 36.8; O2SAT 99; BMI 28.1
--- NOTE | 2021-09-17 12:22 | HMH.EDUTC ---
[facility] [place] Disposition Clinical Impression: Ankle sprain Qualifiers: Encounter type: initial encounter Involved ligament of ankle: unspecified ligament Laterality: left Qualified Code(s): S93.402A - Sprain of unspecified ligament of left ankle, initial encounter Disposition: Home, Self-Care Condition on Discharge: Good Instructions: Ankle Sprain, DI for Ankle Sprain, How To Perform RICE (Rest, Ice, Compress, Elevate), How to Apply an Gustavo Wrap Additional Instructions: *weight bearing as tolerated *RICE, Rest the extremity, Ice 15-20 minutes 3-4 times daily, Compress- wear the gustavo wrap as discussed as much as possible to help reduce swelling and pain, Elevate the extremity when at rest *Gustavo wrap and splint is for support and help control swelling, use it except in the shower. Be sure that is not to tight but not to loose either *Elevate when resting *Ibuprofen 600-800mg every 6-8 hours as needed for pain an inflammation. If need something more can take Tylenol in between doses of Ibuprofen to help Immediately follow up with your family doctor for new or worsening of symptoms, or no noticeable improvement over the next 3-5 days Call back to the [facility] later this evening for the official reading of your xray Follow up with Dr Barrow in Orthopedics if needed Referrals: Armando Madden MD [Primary Care Provider] - As needed Forms: Work/School Release Medical Decision Making - Jim Inquiry Pt receiving controlled substance: No Jim was queried for this patient: No Vital Signs: 09/17/21 12:00 09/17/21 13:01 Temperature 98.3 F 98.3 F Temperature Source Oral Pulse Rate 75 Pulse Rate [Right Brachial] 75 Respiratory Rate 17 17 Blood Pressure 127/68 Blood Pressure [Right Arm] 127/68 Blood Pressure Mean [Right Arm] 87 Blood Pressure Source [Right Arm] Automatic Cuff Blood Pressure Position [Right Arm] Sitting 02 Sat by Pulse Oximetry 99 Oxygen Delivery Method Room Air - Radiology Data #1 Image(s): Ankle Image Reviewed: Yes I reviewed the patient's radiology image Preliminary Findings: No Fracture Seen [facility] [place] HPI - General Stated complaint: [id number] left foot pain Time Seen by Provider: 09/17/21 12:22 Mode of Arrival: Ambulatory Source of Information: Patient Limitations: No Limitations Description of Symptoms (Recalled from Triage Doc. by RN): PATIENT REPORTS HE TWISTED HIS LEFT ANKLE THIS MORNING HEENT Symptoms (Recalled from RN notes): No Resp Symptoms (Recalled from RN notes): No Skin Symptoms (Recalled from RN notes): No MS Symptoms (Recalled from RN notes): Yes Functional Status (Recalled from RN notes): WNL - History of Present Illness Provider Complaint: Patient states that he was coming down ladder this morning and as he stepped off he twisted his left ankle States that ever since he has been having pain when he moves the ankle certain ways or walks on it so he came in to get it checked - Related Data Home Medications Medication Instructions Recorded Confirmed Omeprazole [Omeprazole 40mg 40 mg PO DAILY 09/17/21 09/17/21 Capsule] Allergies Allergy/AdvReac Type Severity Reaction Status Date / Time No Known Allergies Allergy Verified 07/27/20 09:42 - Worker's Comp Is this a Worker's Comp case?: No [facility] History - Hepatitis A Screen Attestation statement:: This patient has been screened for Hepatitis A risk factors. I have reviewed the patient's past medical history: Yes - Social History Smoking Status: Current every day smoker Tobacco Type: cigarettes # Packs/Day (cigarettes): 1 Alcohol Intake: never Substance Use Type: denies use Occupational Status: other ROS Obtained: Yes All systems reviewed & no additional complaints, Yes Systems reviewed as appropriate & no additional complaints - Constitutional Constitutional: Reports system reviewed and no additional complaints, except as docu, Denies body ache, Denies chills, Denies fever(s) - ENT Ears, Nose,
[2021-09-17 13:01] VITALS: BP 127/68; PULSE 75; RESP 17; TEMP 36.8; O2SAT 99
== END 2021-09-17 13:11 | disposition home or self-care (01) ==
PROVIDERS: Emergency Provider Nurse Practitioner; PCP Family Medicine
DX: S93.402A Sprain of unspecified ligament of left ankle, initial encounter (principal); F17.210 Nicotine dependence, cigarettes, uncomplicated; X50.1XXA Overexertion from prolonged static or awkward postures, initial encounter
CPT/HCPCS: 73610; 99213; G0463

== ENCOUNTER 2021-11-03 09:13 | Emergency (ER) | payer OTHER, SELFPAY ==
[2021-11-03 11:19] VITALS: BP 117/86; PULSE 64; RESP 19; TEMP 36.7; O2SAT 99; BMI 24.3
--- NOTE | 2021-11-03 11:36 | EXP.UTC ---
Discharge Plan Disposition Patient Disposition: Home, Self-Care Condition: Good Prescriptions Prescriptions: New azithromycin [Zithromax Z-Jus] 250 mg tablet 250 mg PO DAILY 6 Days Qty: 6 0RF Rx Instructions: start on day 2 of therapy methylprednisolone [Medrol (Jus)] 4 mg tablets,dose pack 4 mg PO DAILY Qty: 21 0RF No Action omeprazole 40 MG capsule,delayed release(DR/EC) 40 mg PO DAILY Referrals Follow up/Referrals: Armando Madden MD [Primary Care Provider] - Enter time for follow up Activity Restrictions/Add. Instructions Additional Instructions/Restrictions: *Monitor Temp, Over the counter Motrin or Tylenol as directed/as needed Tylenol every 4 hours and Motrin every 6 hours (as long as your family doctor has told you that you can take it) for fever or pain. and straight to ER if unable to lower temp less than 101.0 after medication given *Warm salt water gargles may help to soothe the throat *Throat Lozenges? *Warm fluids like tea with honey may help to soothe the throat? *Sleep elevated *Humidifier/Vaporizer Follow up IMMEDIATELY for new or worsening symptoms or no Noticeable improvement over the next 48-72 hours. 911 for difficulty breathing or swallowing You were tested for today for COVID19 your test result should be back in the next 24-48 hours, you may check your result on the [facility] My Health Portal Make sure to take your Vitamins Vit. C Vit D and Zinc if you can take them Clinical Impressions Clinical Impression: Sinusitis Instructions Patient Instructions: DI for Sinusitis Discharge ED Provider: Destiny Lindquist [facility] General Stated complaint: Sinus pain, SOA Time Seen by Provider: 11/03/21 11:10 Mode of Arrival: Ambulatory Source of Information: Patient Limitations: No Limitations Description of Symptoms (Recalled from Triage Doc. by RN): patient comes in with complaints of upper respiratory symptoms, and sinus pressure. symptoms began yesterday. HEENT Symptoms (Recalled from RN notes): Yes Resp Symptoms (Recalled from RN notes): Yes Skin Symptoms (Recalled from RN notes): No MS Symptoms (Recalled from RN notes): No Functional Status (Recalled from RN notes): n/a History of Present Illness Provider Complaint: Patient state that has been having sinus issues on and off for about a week got worse yesterday States that he is having pressure behind his eyes and feels like it is trying to move into his chest State that he isnt coughing or anything yet but feels like at times he can feel the drainage in the back of his throat Related Data Home Medications Medication Instructions Recorded Confirmed omeprazole 40 mg capsule,delayed 40 mg PO DAILY GERD 09/17/21 09/17/21 release Previous Rx's Medication Instructions Recorded azithromycin 250 mg tablet 250 mg PO DAILY 6 days #6 tabs 11/03/21 (Zithromax Z-Jus) methylprednisolone 4 mg tablets in 4 mg PO DAILY #21 tabs 11/03/21 a dose pack (Medrol (Jus)) Allergies Allergy/AdvReac Type Severity Reaction Status Date / Time No Known Allergies Allergy Verified 07/27/20 09:42 Worker's Comp Is this a Worker's Comp case?: No PFSH PFSH Social History Smoking Status: Current every day smoker tobacco type: cigarettes packs per day: 1 alcohol intake: never substance use type: denies use current occupational status: other number of children: 1 current occupational exposures/hazards: No ROS Obtained: Yes All systems reviewed & no additional complaints except as documented and Yes Systems reviewed as appropriate & no additional complaints except as documented ENT Ears, Nose, Mouth, and Throat: Reports system reviewed and no additional complaints, except as documented, Reports sinus pain, Reports sinus pressure and Reports sore throat Cardiovascular Cardiovascular: Reports system reviewed and no additional complaints, except as documented and Reports as per HPI Respiratory
[2021-11-03 11:58] VITALS: BP 117/86; PULSE 64; RESP 19; TEMP 36.7
== END 2021-11-03 11:59 | disposition home or self-care (01) ==
PROVIDERS: Emergency Provider Nurse Practitioner; PCP Family Medicine
DX: J32.9 Chronic sinusitis, unspecified (principal); F17.210 Nicotine dependence, cigarettes, uncomplicated
CPT/HCPCS: 99212; C9803; G0463; U0003; U0005

== ENCOUNTER 2021-11-20 19:31 | Emergency (ER) | payer OTHER, SELFPAY ==
[2021-11-20 19:33] VITALS: BP 116/76; PULSE 71; RESP 16; TEMP 36.8; O2SAT 100; BMI 25.1
[2021-11-20 20:00] VITALS: BP 114/68; PULSE 68; O2SAT 100
--- NOTE | 2021-11-20 20:20 | HMH.EDABDPAI ---
Discharge Plan Disposition Patient Disposition: Home, Self-Care Chief Complaint: Abdominal Pain Prescriptions Prescriptions: No Action omeprazole 40 MG capsule,delayed release(DR/EC) 40 mg PO DAILY Referrals Follow up/Referrals: Armando Madden MD [Primary Care Provider] - See instructions Clinical Impressions Clinical Impression: Inguinal hernia Instructions Patient Instructions: DI for Groin Hernia Discharge ED Provider: Tru Canas Abdominal Pain HPI General Chief Complaint: Abdominal Pain Stated Complaint: possible Hernia Time Seen by Provider: 11/20/21 20:21 Mode of Arrival: Family Vehicle Source of Information: Patient and Medical Record Limitations: No Limitations Description of Symptoms (Recalled from ER Triage Doc. by RN): Pt reports he is concerned he has a hernia. States on when he was lifting heavy equipment he felt a sharp pain in his R inguinal area. Report the pain went away after he stopped lifting. Then he noted his R testical was swollen and tender. This went on until this morning and now pt states his testicle is back to normal. He denies any pain n/v/d, fever, or chills. He states I had time to come get it checked out now . No tenderness with palpation, no nodules or lumps noted in the inguinal area at this time. History of Present Illness HPI narrative: acute rt inguinal pain after lifting with pain at that time to rt testicle - now resolved complaint: abdominal pain Onset (ago): day(s) Consistency: intermittent and now resolved Location: RLQ Severity: moderate Radiation: RLQ Context: recent injury Associated symptoms: denies other symptoms Treatments prior to arrival: NSAIDs Related Data Home Medications Medication Instructions Recorded Confirmed omeprazole 40 mg capsule,delayed 40 mg PO DAILY GERD 09/17/21 11/20/21 release Allergies Allergy/AdvReac Type Severity Reaction Status Date / Time No Known Allergies Allergy Verified 07/27/20 09:42 [facility] Social History (Updated 11/08/21 @ 20:58 by Destiny Lindquist APRN) Smoking Status: Never smoker alcohol intake: never substance use type: denies use current occupational status: other Travel in the last 8 weeks: None number of children: 1 current occupational exposures/hazards: No ROS Obtained: Yes All systems reviewed & no additional complaints except as documented Physical Exam General General appearance: alert Head Head exam: normocephalic Eye Eye exam: Present PERRL and EOMI ENT ENT exam: Present mucous membranes moist Neck Neck exam: Present trachea midline Respiratory Respiratory exam: Present normal lung sounds bilaterally Cardiovascular Cardiovascular exam: Present regular rate; Absent systolic murmur Abdominal Exam Abdominal exam: Present soft; Absent guarding or rebound Abdominal tenderness: Present RLQ and mild exam: Present normal testicular lie and circumcised; Absent testicular tenderness or scrotal swelling Expanded Exam exam: Present inguinal hernia Extremities Exam Extremities exam: Present full ROM Back Exam Back exam: Absent CVA tenderness (R) Neurological Exam Neurological exam: Present alert, oriented X3 and CN II-XII intact Psychiatric Psychiatric exam: Present normal affect Skin Skin exam: Absent rash Lymphatic Lymphatic Findings: no adenopathy Medical Decision Making Medical Records Medical records reviewed: Yes I reviewed the patient's medical records. Jim Inquiry Pt receiving controlled substance: No Vital Signs: 11/20/21 19:33 Temperature 98.3 F Temperature Source Oral Pulse Rate [Right] 71 Respiratory Rate 16 Blood Pressure [Right Arm] 116/76 Blood Pressure Mean [Right Arm] 89 Blood Pressure Source [Right Arm] Automatic Cuff 02 Sat by Pulse Oximetry 100 Oxygen Delivery Method Room Air Lab Data Lab results reviewed: Yes I reviewed the patient's lab results. Lab Results 11/20/21 19:37: Urine Color Y
--- NOTE | 2021-11-20 20:25 | CT_ITS ---
PROCEDURE INFORMATION: Exam: CT Abdomen And Pelvis Without Contrast Exam date and time: 11/20/2021 8:59 PM Age: 31 years old Clinical indication: Abdominal pain; Localized; Right lower quadrant (rlq); Additional info: R inguinal pain, R testicle swelling 2 days ago TECHNIQUE: Imaging protocol: Computed tomography of the abdomen and pelvis without contrast. Radiation optimization: All CT scans at this facility use at least one of these dose optimization techniques: automated exposure control; mA and/or kV adjustment per patient size (includes targeted exams where dose is matched to clinical indication); or iterative reconstruction. COMPARISON: CT ABDOMEN PELVIS WO CON 07/17/2020 12:27 AM FINDINGS: Liver: Parenchymal enhancement is not evaluated without contrast. No hepatomegaly. Gallbladder and bile ducts: No calcified stones. No ductal dilation. Pancreas: Parenchymal enhancement is not evaluated without contrast. No ductal dilation. Spleen: Parenchymal enhancement is not evaluated without contrast. No splenomegaly. Adrenal glands: No mass. Kidneys and ureters: Parenchymal enhancement is not evaluated without contrast. No hydronephrosis. Stomach and bowel: No obstruction. No mucosal thickening. Appendix: No evidence of appendicitis. Intraperitoneal space: No free air. No significant fluid collection. Vasculature: Limited evaluation without contrast. No abdominal aortic aneurysm. Lymph nodes: No enlarged lymph nodes. Urinary bladder: No acute abnormality. Reproductive: No acute abnormality. Bones/joints: No acute fracture. Soft tissues: Limited evaluation without contrast. No significant soft tissue swelling. IMPRESSION: No acute intra-abdominal findings. If there is concern for testicular pathology, targeted ultrasound is recommended for further evaluation.
[2021-11-20 20:29] LABS: Microscopic, Urine URINE MICROSCOPIC (MICROSCOPIC)
[2021-11-20 20:30] VITALS: BP 137/92; PULSE 78; O2SAT 99
[2021-11-20 20:33] LABS: Appearance,Urine CLEAR (Clear); Bilirubin,Urine Negative (Negative); Blood, Urine Negative (Negative); Color,Urine YELLOW (Yellow); Glucose,Urine (UA) Negative (Negative); Ketones,Urine Negative (Negative); Leukocyte Esterase,Urine Negative (Negative); Nitrate,Urine Negative (Negative); PH,Urine 5.5 (5.0-8.5); Protein,Urine Negative (Negative); Specific Gravity, Urine >= 1.030 (1.005-1.030); Urobilinogen,Urine 0.2 EU/dl (0.2)
--- NOTE | 2021-11-20 20:37 | PC.NURSE ---
at BS speaking with pt
[2021-11-20 20:44] LABS: Basophils # 0.2 K/mm3 (0-0.2); Basophils % 1.5 % (0.1-2.0); Eosinophils # 0.2 K/mm3 (0.0-0.4); Eosinophils % 1.8 % (0.1-12.0); Hematocrit 46.1 % (42.0-52.0); Hemoglobin 15.3 g/dL (14.1-18.0); Lymphocytes # 3.6 K/mm3 (0.7-4.5); Lymphocytes % 34.9 % (10-50); Mean Corpuscular HGB Conc 33.1 g/dL (31.8-35.4); Mean Corpuscular Volume 90.8 fl (80-94); Mean Platelet Volume 7.9 fl (7.4-10.4); Monocytes # 0.6 K/mm3 (0.1-1.0); Neutrophils # 5.7 K/mm3 (1.8-7.8); Neutrophils % 55.8 % (37.0-80.0); Platelet Count 294 K/mm3 (142-424); Red Blood Count 5.08 M/mm3 (4.60-6.20); Red Cell Distribution Width 13.4 % (11.5-17.5); White Blood Count 10.2 K/mm3 (4.8-10.8)
[2021-11-20 20:45] LABS: Bacteria,Urine Trace /lpf; Mucus,Urine 1+ /lpf; RBC,Urine Occasional #/hpf (0-3); Squamous Epithelial Cell,Urine Occasional #/hpf (0-5); WBC,Urine Occasional #/hpf (0-3)
--- NOTE | 2021-11-20 20:45 | PC.NURSE ---
pt refused to keep PIV in place. Able to obtain blood work and then he stated last time I had one I had some air bubbles go in and that won't be happening again . Pt also now states he has IV contrast allergy d/t a shellfish allergy history . Refuses pre-treatment. Reusing CT at this time. notified
[2021-11-20 20:54] LABS: Alanine Aminotransferase 36 U/L (12-78); Albumin Level 4.3 g/dl (3.5-5.0); Albumin/Globulin Ratio 1.5 (1.1-1.8); Alkaline Phosphatase 113 U/L (38-126); Amylase 70 U/L (30-110); Anion Gap 11.2 mEq/L (5-15); Aspartate Amino Transferase 42 U/L (17-59); Bilirubin,Total 0.4 mg/dl (0.2-1.3); Blood Urea Nitrogen 10 mg/dl (9-20); Calcium 9.2 mg/dl (8.4-10.2); Carbon Dioxide 30 mmol/L (22.0-30.0); Chloride 103 mmol/L (98-107); Creatinine Clearance Estimated 146 mL/min (50-200); Estimated Glomerular Filt Rate 113 ml/min (>60); GFR (African American) 136 ML/MIN (>60); Globulin 2.8 g/dL (1.3-3.2); Glucose 87 mg/dl (74-100); Lipase 80 U/L (23-300); Potassium 4.2 mmoL/L (3.5-5.1); Sodium 140 mmol/L (136-145); Total Protein,Serum 7.1 g/dl (6.3-8.2)
--- NOTE | 2021-11-20 20:59 | PC.NURSE ---
Pt gone to RAD
[2021-11-20 21:00] LABS: C-Reactive Protein 1.3 mg/L (0-4)
--- NOTE | 2021-11-20 21:08 | PC.NURSE ---
Pt back from RAD
[2021-11-20 21:13] LABS: Procalcitonin 0.035 ng/mL (0.0-2.0)
[2021-11-20 21:24] LABS: Erythrocyte Sedimentation Rate 8 mm/hr (0-15)
--- NOTE | 2021-11-20 22:40 | PC.NURSE ---
Rounded on pt. No needs or complaints voiced.
[2021-11-20 22:44] VITALS: BP 135/90; PULSE 75; RESP 16; TEMP 36.6; O2SAT 98
== END 2021-11-20 22:46 | disposition home or self-care (01) ==
PROVIDERS: Emergency Provider Emergency Medicine; PCP Family Medicine
DX: K40.90 Unilateral inguinal hernia, without obstruction or gangrene, not specified as recurrent (principal)
CPT/HCPCS: 74176; 80053; 81001; 82150; 83690; 84145; 85025; 85651; 86140; 99284

== ENCOUNTER → 2022-01-04 13:26 | Outpatient (CLI) | payer OTHER, SELFPAY ==
--- NOTE | 2022-01-04 13:36 | US_ITS ---
FINAL REPORT CLINICAL HISTORY: SUPRAPUBIC PAIN FINDINGS: Limited sonographic images of the right lower quadrant were obtained. There are several borderline size right inguinal nodes which are nonspecific, favor reactive. No mass is identified. There is no evidence of a hernia. IMPRESSION: No mass or hernia identified. Reviewed, Interpreted and Dictated by Tai Graham III, MD Transcribed by Nica Gonzalez Authenticated and . [facility]
--- NOTE | 2022-01-04 13:36 | US_ITS ---
FINAL REPORT CLINICAL HISTORY: SUPRAPUBIC PAIN FINDINGS: Limited sonographic images of the pelvis were obtained. The bladder filled measures 178 mL. No mass is identified. The prostate is normal. There is 13 mm postvoid residual. Normal ureteral jets are identified. IMPRESSION: Bladder appears within normal limits. Reviewed, Interpreted and Dictated by Tai Graham III, MD Transcribed by Nica Gonzalez Authenticated and [facility]
== END ==
PROVIDERS: PCP Family Medicine; Visit Provider Nurse Practitioner Family
DX: R10.30 Lower abdominal pain, unspecified (principal); R10.2 Pelvic and perineal pain
CPT/HCPCS: 76857; 76882

== ENCOUNTER 2022-01-26 11:28 | Emergency (ER) | payer OTHER, SELFPAY ==
[2022-01-26 13:40] VITALS: BP 146/85; PULSE 92; RESP 18; TEMP 37.2; O2SAT 98; BMI 26.3
--- NOTE | 2022-01-26 13:59 | EXP.UTC ---
Discharge Plan Disposition Patient Disposition: Home, Self-Care Condition: Good Prescriptions Prescriptions: New benzonatate 100 mg capsule 100 mg PO TID PRN (Reason: cough) Qty: 30 0RF methylprednisolone [Medrol (Jus)] 4 mg tablets,dose pack See Rx Instructions .Route .COMPLEX 6 Days Qty: 21 0RF Rx Instructions: taper pack; amoxicillin-pot clavulanate 875-125 mg Tablet 1 tab PO Q12H 7 Days Qty: 14 0RF No Action omeprazole 40 MG capsule,delayed release(DR/EC) 40 mg PO DAILY Referrals Follow up/Referrals: Armando Madden MD [Primary Care Provider] - See instructions Activity Restrictions/Add. Instructions Additional Instructions/Restrictions: *Monitor Temp, Over the counter Motrin or Tylenol as directed/as needed Tylenol every 4 hours and Motrin every 6 hours (as long as your family doctor has told you that you can take it) for fever or pain. and straight to ER if unable to lower temp less than 101.0 after medication given *Warm salt water gargles may help to soothe the throat *Throat Lozenges? *Warm fluids like tea with honey may help to soothe the throat? *Sleep elevated *Humidifier/Vaporizer Take medication as prescribed Follow up IMMEDIATELY for new or worsening symptoms or no Noticeable improvement over the next 48-72 hours. 911 for difficulty breathing or swallowing Clinical Impressions Clinical Impression: Sinusitis Stand Alone Forms Stand Alone Forms: Work/School Release Instructions Patient Instructions: DI for Sinusitis, Sinusitis Discharge ED Provider: Destiny Lindquist [facility] General Stated complaint: Sore throat, sinus pressure, nausea Mode of Arrival: Ambulatory Source of Information: Patient Limitations: No Limitations Time Seen by Provider: 01/26/22 13:59 Description of Symptoms (Recalled from Triage Doc. by RN): PATIENT C/O SORE THROAT, SINUS PRESSURE AND NAUSEA HEENT Symptoms (Recalled from RN notes): Yes Resp Symptoms (Recalled from RN notes): No Skin Symptoms (Recalled from RN notes): No MS Symptoms (Recalled from RN notes): No Functional Status (Recalled from RN notes): WNL History of Present Illness Provider Complaint: Patient states that he has been having sinus pain and pressure, sore throat, pressure in his ears and N/V States that today he was having pressure like feeling behind his eyes so he came in to get checked out Related Data Home Medications Medication Instructions Recorded Confirmed omeprazole 40 mg capsule,delayed 40 mg PO DAILY GERD 09/17/21 11/20/21 release Previous Rx's Medication Instructions Recorded amoxicillin 875 mg-potassium 1 tab PO Q12H 7 days #14 tabs 01/26/22 clavulanate 125 mg tablet benzonatate 100 mg capsule 100 mg PO TID PRN cough #30 caps 01/26/22 methylprednisolone 4 mg tablets in See Rx Instructions .Route 01/26/22 a dose pack (Medrol (Jus)) .COMPLEX 6 days #21 tabs Allergies Allergy/AdvReac Type Severity Reaction Status Date / Time No Known Allergies Allergy Verified 07/27/20 09:42 Worker's Comp Is this a Worker's Comp case?: No PFSH PFSH Medical History (Updated 01/26/22 @ 14:34 by Destiny Lindquist APRN) Anxiety History of gastroesophageal reflux (GERD) Social History (Updated 01/26/22 @ 13:54 by Caitlyn Covington RN) Smoking Status: Never smoker alcohol intake: never substance use type: denies use current occupational status: other Travel in the last 8 weeks: None number of children: 1 current occupational exposures/hazards: No ROS Obtained: Yes All systems reviewed & no additional complaints except as documented and Yes Systems reviewed as appropriate & no additional complaints except as documented Constitutional Constitutional: Reports system reviewed and no additional complaints, except as documented, Reports as per HPI, Reports body ache, Reports chills, Reports fever(s) and Reports headache(s) ENT Ears, Nose, Mouth, and Throat:
[2022-01-26 14:22] LABS: UTC Influenza A Antigen Negative (Negative); UTC Influenza B Antigen Negative (Negative)
[2022-01-26 14:57] VITALS: BP 146/85; PULSE 92; RESP 18; TEMP 37.2; O2SAT 98
== END 2022-01-26 15:00 | disposition home or self-care (01) ==
PROVIDERS: Emergency Provider Nurse Practitioner; PCP Family Medicine
DX: J02.9 Acute pharyngitis, unspecified (principal); R11.2 Nausea with vomiting, unspecified; R50.9 Fever, unspecified; R51.9 Headache, unspecified; R09.89 Other specified symptoms and signs involving the circulatory and respiratory systems; K21.9 Gastro-esophageal reflux disease without esophagitis; F41.9 Anxiety disorder, unspecified; Z79.52 Long term (current) use of systemic steroids; Z79.899 Other long term (current) drug therapy
CPT/HCPCS: 87804; 99213; G0463

== ENCOUNTER 2022-03-28 09:03 | Emergency (ER) | payer OTHER, SELFPAY ==
[2022-03-28 09:03] VITALS: BP 151/85; PULSE 75; RESP 18; TEMP 36.6; O2SAT 100; BMI 25.1
[2022-03-28 09:09] VITALS: BMI 25.1
--- NOTE | 2022-03-28 09:09 | XR_ITS ---
FINAL REPORT CLINICAL HISTORY: pain in wrist with numbness to hand FINDINGS: RIGHT WRIST Two views were obtained. There is no acute fracture or dislocation. The joint spaces are preserved. No soft tissue abnormality is identified. IMPRESSION: No acute bony abnormality of the right wrist. Reviewed, Interpreted and Dictated by Irene Badillo MD Transcribed by Mana Lynn Authenticated and [facility]
--- NOTE | 2022-03-28 09:12 | PC.NURSE ---
PT TO XR
--- NOTE | 2022-03-28 09:16 | PC.NURSE ---
PT RETURNED FROM XR
--- NOTE | 2022-03-28 09:16 | PC.NURSE ---
DR. TORRES AT BEDSIDE
--- NOTE | 2022-03-28 09:21 | HMH.EDEXTP ---
Discharge Plan Disposition Patient Disposition: Home, Self-Care Prescriptions Prescriptions: New prednisone [prednisone] 20 mg tablet 20 mg PO BID Qty: 10 0RF No Action omeprazole 40 MG capsule,delayed release(DR/EC) 40 mg PO DAILY benzonatate 100 mg capsule 100 mg PO TID PRN (Reason: cough) Qty: 30 0RF methylprednisolone [Medrol (Jus)] 4 mg tablets,dose pack See Rx Instructions .Route .COMPLEX 6 Days Qty: 21 0RF Rx Instructions: taper pack; amoxicillin-pot clavulanate 875-125 mg Tablet 1 tab PO Q12H 7 Days Qty: 14 0RF Referrals Follow up/Referrals: Armando Madden MD [Primary Care Provider] - See instructions Clinical Impressions Clinical Impression: Cervical radicular pain, Hand paresthesia Instructions Patient Instructions: DI for Cervical Radiculopathy Discharge ED Provider: Tru Canas Extremity Problem HPI General Chief complaint: Extremity Problem,Nontraumatic Stated complaint: RT hand numbness Time Seen by Provider: 03/28/22 09:21 Mode of Arrival: Ambulatory Source of Information: Patient and Medical Record Limitations: No Limitations Description of Symptoms (Recalled from ER Triage Doc. by RN): PT PRESENTS WITH RIGHT HAND NUMBNESS, STARTED ABOUT 20 MINUTES AGO AT WORK. HIS FINGERS WERE NUMB NOW HIS WHOLE RIGHT HAND. PT WITH FULL ROM. HAS HAD THIS ISSUE BEFORE. IS A SENIOR MATERIALS PLANNER AT WORK History of Present Illness HPI Narrative: pt with episode of rt hand numbness which started acutely and involved entire rt hand - improving now and no visual/speech or other neuro sx- MD Complaint: other (ext numbness) Onset (ago): hour(s) Consistency: now resolved Location: upper extremity Radiation: distal Related Data Home Medications Medication Instructions Recorded Confirmed omeprazole 40 mg capsule,delayed 40 mg PO DAILY GERD 09/17/21 11/20/21 release Previous Rx's Medication Instructions Recorded amoxicillin 875 mg-potassium 1 tab PO Q12H 7 days #14 tabs 01/26/22 clavulanate 125 mg tablet benzonatate 100 mg capsule 100 mg PO TID PRN cough #30 caps 01/26/22 methylprednisolone 4 mg tablets in See Rx Instructions .Route 01/26/22 a dose pack (Medrol (Jus)) .COMPLEX 6 days #21 tabs prednisone 20 mg tablet 20 mg PO BID #10 tabs 03/28/22 Allergies Allergy/AdvReac Type Severity Reaction Status Date / Time No Known Allergies Allergy Verified 07/27/20 09:42 [facility] Disclaimer: The information contained in this section may have been updated after the patient was seen, as this information can be updated by other users. Medical History (Updated 03/28/22 @ 09:42 by Tru Canas MD) Anxiety History of gastroesophageal reflux (GERD) Family History (Updated 03/28/22 @ 09:15 by Chasity Sanders RN) No significant family history Social History (Updated 03/28/22 @ 09:15 by Chasity Sanders RN) Smoking Status: Current every day smoker tobacco type: cigarettes packs per day: 1 alcohol intake: never substance use type: denies use current occupational status: employed Travel in the last 8 weeks: None number of children: 1 current occupational exposures/hazards: No ROS Obtained: Yes All systems reviewed & no additional complaints except as documented Physical Exam General General appearance: alert Head Head exam: normocephalic Eye Eye exam: Present PERRL and EOMI ENT ENT exam: Present mucous membranes moist Neck Neck exam: Present trachea midline Respiratory Respiratory exam: Absent respiratory distress Cardiovascular Cardiovascular exam: Present regular rate Abdominal Exam Abdominal exam: Present soft Extremities Exam Extremities exam: Present other (has improved exam wih no atrophy and from ) Neurological Exam Neurological exam: Present alert and CN II-XII intact Psychiatric Psychiatric exam: Present normal affect Skin Skin exam: Absent rash Medical Decision Making Medical Records Medical records reviewed: Cristiano
[2022-03-28 09:45] VITALS: BP 128/78; PULSE 66; RESP 17; TEMP 36.6; O2SAT 98
== END 2022-03-28 09:45 | disposition home or self-care (01) ==
PROVIDERS: Emergency Provider Emergency Medicine; PCP Family Medicine
DX: M54.12 Radiculopathy, cervical region (principal); R20.2 Paresthesia of skin; F17.210 Nicotine dependence, cigarettes, uncomplicated; F41.9 Anxiety disorder, unspecified; K21.9 Gastro-esophageal reflux disease without esophagitis
CPT/HCPCS: 73100; 99283; 99284

== ENCOUNTER 2022-11-12 12:28 | Emergency (ER) | payer OTHER, SELFPAY ==
[2022-11-12 12:40] VITALS: BP 127/84; PULSE 61; RESP 20; TEMP 36.9; O2SAT 97; BMI 24.0
[2022-11-12 13:19] VITALS: BP 127/84; PULSE 61; RESP 20; TEMP 36.9; O2SAT 97
--- NOTE | 2022-11-12 13:21 | EXP.UTC ---
Discharge Plan Disposition Patient Disposition: Home, Self-Care Condition: Good Prescriptions Prescriptions: No Action omeprazole 40 MG capsule,delayed release(DR/EC) 40 mg PO DAILY Referrals Follow up/Referrals: Armando Madden MD [Primary Care Provider] - See instructions Activity Restrictions/Add. Instructions Additional Instructions/Restrictions: Suture instructions: ?You have required stitches today. Please read the following instructions so you know how to care for them: ?1. Keep wound area dry for the first 24 hours. 2?? May clean gently with mild soap and water, after 48 hours to prevent crusting over suture knots. 3. You may shower if your provider gives permission but do not take a bath until the skin is healed.. 4. Never leave a wet dressing or Band-Aid on your stitches as this allows bacteria to reach the area and may cause infection. Band-aids can cause the wound to sweat and not recommended to wear for long periods of time Watch for signs of infection: ? Increasing redness, tenderness or warmth around the suture site ? Unusual swelling around the site ? Appearance of pus around each suture or any red streaks ? Fever If you develop any of the above signs or symptoms of infection, Follow up with Family Physician immediately 5. Suture removal in _5-7___days 6. Return to [facility] or follow up with family doctor for removal. This can be done by any medical provider dur?ing regular hours on Monday through Monday, by appointment. Clinical Impressions Clinical Impression: Laceration Instructions Patient Instructions: DI for Laceration Repair, DI for Laceration Repair -- Simple Discharge ED Provider: Destiny Lindquist [facility] [place] [place] HPI General Stated complaint: AO 11/12, lac on left eyebrow Mode of Arrival: Ambulatory Source of Information: Patient and Spouse Limitations: No Limitations Time Seen by Provider: 11/12/22 12:45 Description of Symptoms (Recalled from Triage Doc. by RN): PATIENT C/O LACERATION ABOVE LEFT EYEBROW. 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 PATIENT IS UP TO DATE ON TDAP HEENT Symptoms (Recalled from RN notes): Yes Resp Symptoms (Recalled from RN notes): No Skin Symptoms (Recalled from RN notes): Yes MS Symptoms (Recalled from RN notes): No Functional Status (Recalled from RN notes): WNL History of Present Illness Provider Complaint: Patient states that he was putting a table together and accidently hit himself over his left eye with a metal leg State that he noticed a cut above his left eyebrow and noticed it looked like it may need stitches so he came in to get it checked Related Data Home Medications Medication Instructions Recorded Confirmed omeprazole 40 mg capsule,delayed 40 mg PO DAILY GERD 09/17/21 11/12/22 release Allergies Allergy/AdvReac Type Severity Reaction Status Date / Time No Known Allergies Allergy Verified 07/27/20 09:42 Worker's Comp Is this a Worker's Comp case?: No [facility] Disclaimer: The information contained in this section may have been updated after the patient was seen, as this information can be updated by other users. Medical History (Updated 11/12/22 @ 13:27 by Destiny Lindquist APRN) Anxiety History of gastroesophageal reflux (GERD) Family History (Updated 03/28/22 @ 09:15 by Chasity Sanders RN) Other No significant family history Social History (Updated 03/28/22 @ 09:15 by Chasity Sanders RN) Smoking Status: Current every day smoker tobacco type: cigarettes packs per day: 1 alcohol intake: never substance use type: denies use current occupational status: employed Travel in the last 8 weeks: None number of children: 1 current occupational exposures/hazards: No ROS Obtained: Yes All systems reviewed & no additional complaints except as documented and Yes Systems reviewed as appropriate & no additional complaints except as
== END 2022-11-12 13:30 | disposition home or self-care (01) ==
PROVIDERS: Emergency Provider Nurse Practitioner; PCP Family Medicine
DX: S01.81XA Laceration without foreign body of other part of head, initial encounter (principal); F17.210 Nicotine dependence, cigarettes, uncomplicated; K21.9 Gastro-esophageal reflux disease without esophagitis; F41.9 Anxiety disorder, unspecified; W20.8XXA Other cause of strike by thrown, projected or falling object, initial encounter
CPT/HCPCS: 12011; 99213; 99214; G0463

== ENCOUNTER 2022-11-19 13:30 | Emergency (ER) | payer OTHER, SELFPAY ==
[2022-11-19 13:45] VITALS: BP 126/85; PULSE 69; RESP 18; TEMP 37.2; O2SAT 100; BMI 25.2
[2022-11-19 13:49] VITALS: BP 126/85; PULSE 69; RESP 18; TEMP 37.2; O2SAT 100
== END 2022-11-19 13:49 | disposition home or self-care (01) ==
LOC: UTC 13:33
PROVIDERS: Emergency Provider Nurse Practitioner Family; PCP Family Medicine
DX: Z48.02 Encounter for removal of sutures (principal)

== ENCOUNTER 2022-12-23 11:38 | Emergency (ER) | payer OTHER, SELFPAY ==
[2022-12-23 11:39] VITALS: BP 138/69; PULSE 83; RESP 16; TEMP 36.7; O2SAT 97; BMI 25.8
--- NOTE | 2022-12-23 12:16 | PC.NURSE ---
Dr. Ferrell at BS for pt eval
--- NOTE | 2022-12-23 12:19 | HMH.EDGENADL ---
Discharge Plan Disposition Patient Disposition: Home, Self-Care Prescriptions Prescriptions: No Action omeprazole 40 MG capsule,delayed release(DR/EC) 40 mg PO DAILY Referrals Follow up/Referrals: Armando Madden MD [Primary Care Provider] - See instructions Activity Restrictions/Add. Instructions Additional Instructions/Restrictions: You should notice a significant improvement in your symptoms within the next 24 to 48 hours. The very small metallic foreign body that was removed from the eye most likely was causing a superficial epithelial injury to your eye. Please take your topical antibiotic drops as instructed and return to the emergency department any worsening symptoms or follow-up with an dwarf tree grower if you are not improving or if you are having visual disturbance. Clinical Impressions Clinical Impression: Eye foreign body, Abrasion, corneal Discharge ED Provider: Nidhi Ferrell General Adult HPI General Chief complaint: Eye Problems Stated complaint: metal in left eye Time Seen by Provider: 12/23/22 12:11 Mode of Arrival: Ambulatory Source of Information: Patient Limitations: No Limitations Description of Symptoms (Recalled from ER Triage Doc. by RN): Patient reports grinding a piece of metal when a piece went under his safety glasses and into his left eye. States his vision is fine it just feels like something is scratching him. History of Present Illness HPI narrative: Patient is a 32-year-old male here with left eye discomfort. States he was working on a piece of metal with a saw when he felt a very small piece fly into his left eye. This happened about 30 minutes prior to arrival. No visual disturbances. States he had a corneal abrasion in the past and this feels similar. No injuries elsewhere. Related Data Home Medications Medication Instructions Recorded Confirmed omeprazole 40 mg capsule,delayed 40 mg PO DAILY GERD 09/17/21 11/12/22 release Allergies Allergy/AdvReac Type Severity Reaction Status Date / Time No Known Allergies Allergy Verified 07/27/20 09:42 [facility] Disclaimer: The information contained in this section may have been updated after the patient was seen, as this information can be updated by other users. Medical History (Updated 12/23/22 @ 12:19 by Nidhi Ferrell MD) Anxiety History of gastroesophageal reflux (GERD) Family History (Updated 03/28/22 @ 09:15 by Chasity Sanders RN) Other No significant family history Social History (Updated 03/28/22 @ 09:15 by Chasity Sanders RN) Smoking Status: Current every day smoker tobacco type: cigarettes packs per day: 1 alcohol intake: never substance use type: denies use current occupational status: employed Travel in the last 8 weeks: None number of children: 1 current occupational exposures/hazards: No ROS Obtained: Yes All systems reviewed & no additional complaints except as documented Physical Exam General General appearance: alert Eye Eye exam: Present normal appearance, PERRL, EOMI and other (Visual acuity normal with fluorescein stain no significant uptake, 100 send symptomatic resolution with tetracaine, there is a very small metallic foreign body at the medial canthus which was removed without difficulty); Absent scleral icterus, conjunctival redness, jaundice, conjunctival injection, nystagmus, miosis, mydriasis, periorbital swelling or periorbital tenderness Respiratory Respiratory exam: Present normal lung sounds bilaterally Cardiovascular Cardiovascular exam: Present regular rate; Absent tachycardia Neurological Exam Neurological exam: Present alert and oriented X3 Medical Decision Making Jim Inquiry Pt receiving controlled substance: No Vital Signs: 12/23/22 11:39 Temperature 98.1 F Temperature Source Oral Pulse Rate [Radial] 83 Respiratory Rate 16 Blood Pressure [Right Arm] 138/69 Blood Pressure Mean [Right Arm] 92 Blood Pressure Source [Right A
[2022-12-23 12:26] VITALS: BP 114/65; PULSE 72; RESP 18; TEMP 36.7; O2SAT 98
== END 2022-12-23 12:27 | disposition home or self-care (01) ==
PROVIDERS: Emergency Provider Student in an Organized Health Care Education/Training Program; PCP Family Medicine
DX: S05.8X2A Other injuries of left eye and orbit, initial encounter (principal); T15.02XA Foreign body in cornea, left eye, initial encounter; F17.210 Nicotine dependence, cigarettes, uncomplicated; K21.9 Gastro-esophageal reflux disease without esophagitis; F41.9 Anxiety disorder, unspecified; W44.E0XA Non-magnetic metal object unspecified, entering into or through a natural orifice, initial encounter
CPT/HCPCS: 65222; 99283

== ENCOUNTER 2023-02-25 12:42 | Emergency (ER) | payer OTHER, SELFPAY ==
[2023-02-25 13:10] VITALS: BP 130/82; PULSE 66; RESP 20; TEMP 36.8; O2SAT 97; BMI 25.8
--- NOTE | 2023-02-25 13:22 | EXP.UTC ---
Discharge Plan Disposition Patient Disposition: Home, Self-Care Condition: Good Prescriptions Prescriptions: New amoxicillin [amoxicillin] 875 mg tablet 875 mg PO Q12H Qty: 20 0RF benzonatate [benzonatate] 100 mg capsule 100 mg PO TIDP PRN (Reason: Cough) Qty: 30 0RF No Action omeprazole 40 MG capsule,delayed release(DR/EC) 40 mg PO DAILY Referrals Follow up/Referrals: Armando Madden MD [Primary Care Provider] - See instructions Activity Restrictions/Add. Instructions Additional Instructions/Restrictions: Drink plenty of fluids. Take tylenol or ibuprofen for pain or fever. Take the medications as directed. Follow up with your regular doctor. GO TO THE ER FOR ANY WORSENING SYMPTOMS Clinical Impressions Clinical Impression: Pharyngitis, Exposure to 2019 novel coronavirus Instructions Patient Instructions: Strep Throat, DI for Strep Throat Discharge ED Provider: Angel Gar [facility] [place] HPI General Stated complaint: sore throat, congestion Mode of Arrival: Ambulatory Source of Information: Patient Limitations: No Limitations Time Seen by Provider: 02/25/23 13:22 Description of Symptoms (Recalled from Triage Doc. by RN): PATIENT C/O SORE THROAT, SOA, AND NASAL CONGESTION X 2 DAYS HEENT Symptoms (Recalled from RN notes): Yes Resp Symptoms (Recalled from RN notes): Yes Skin Symptoms (Recalled from RN notes): No MS Symptoms (Recalled from RN notes): No Functional Status (Recalled from RN notes): WNL History of Present Illness Provider Complaint: She states that she has had a worsening sore throat for the past 2 days. Related Data Home Medications Medication Instructions Recorded Confirmed omeprazole 40 mg capsule,delayed 40 mg PO DAILY GERD 09/17/21 02/25/23 release Previous Rx's Medication Instructions Recorded amoxicillin 875 mg tablet 875 mg PO Q12H #20 tabs 02/25/23 benzonatate 100 mg capsule 100 mg PO TIDP PRN Cough #30 caps 02/25/23 Allergies Allergy/AdvReac Type Severity Reaction Status Date / Time No Known Allergies Allergy Verified 07/27/20 09:42 Worker's Comp Is this a Worker's Comp case?: No [facility] Disclaimer: The information contained in this section may have been updated after the patient was seen, as this information can be updated by other users. Medical History (Updated 02/25/23 @ 13:45 by Angel Gar APRN) Anxiety History of gastroesophageal reflux (GERD) Family History (Updated 03/28/22 @ 09:15 by Chasity Sanders RN) Other No significant family history Social History (Updated 03/28/22 @ 09:15 by Chasity Sandres RN) Smoking Status: Current every day smoker tobacco type: cigarettes packs per day: 1 alcohol intake: never substance use type: denies use current occupational status: employed Travel in the last 8 weeks: None number of children: 1 current occupational exposures/hazards: No ROS Obtained: Yes All systems reviewed & no additional complaints except as documented Constitutional Constitutional: Reports chills and Reports fever(s) Eyes Eyes: Denies eye discharge ENT Ears, Nose, Mouth, and Throat: Reports as per HPI Cardiovascular Cardiovascular: Denies chest pain Respiratory Respiratory: Denies chest congestion and Reports cough Gastrointestinal Gastrointestingal: Reports nausea; Denies abdominal pain, constipation, cramping, diarrhea or vomiting Musculoskeletal Musculoskeletal: Denies arthralgias Integumentary/Breasts Skin/Breast: Denies rash Neurologic Neurologic: Denies paresthesias Physical Exam General General appearance: alert and in no apparent distress Head Head exam: atraumatic, normocephalic and normal inspection Eye Eye exam: Present normal appearance, PERRL and EOMI ENT ENT exam: Present mucous membranes moist and normal external ear exam Expanded ENT Exam TM/Canal exam: Bilateral TM: erythema and bulging Nose exam: Absent sinus tenderness Mouth exam: Present normal exter
[2023-02-25 13:31] LABS: UTC Strep Screen (Rapid) Negative (Negative)
[2023-02-25 13:46] VITALS: BP 130/82; PULSE 66; RESP 20; TEMP 36.8; O2SAT 97
== END 2023-02-25 13:59 | disposition home or self-care (01) ==
PROVIDERS: Emergency Provider Nurse Practitioner Family; PCP Family Medicine
DX: J02.9 Acute pharyngitis, unspecified (principal); R09.81 Nasal congestion; R50.9 Fever, unspecified; R05.9 Cough, unspecified; R11.0 Nausea; K21.9 Gastro-esophageal reflux disease without esophagitis; F17.210 Nicotine dependence, cigarettes, uncomplicated; Z20.818 Contact with and (suspected) exposure to other bacterial communicable diseases; Z20.822 Contact with and (suspected) exposure to COVID-19
CPT/HCPCS: 87635; 87880; 99212; 99214; G0463

== ENCOUNTER 2023-03-13 18:37 | Emergency (ER) | payer BC, SELFPAY ==
[2023-03-13 18:50] VITALS: BP 121/86; PULSE 108; RESP 22; TEMP 37.9; O2SAT 98; BMI 25.2
--- NOTE | 2023-03-13 19:02 | ED_ITS ---
Discharge Plan Disposition Patient Disposition: Home, Self-Care Condition: Good Prescriptions Prescriptions: No Action amoxicillin [amoxicillin] 875 mg tablet 875 mg PO Q12H Qty: 20 0RF benzonatate [benzonatate] 100 mg capsule 100 mg PO TIDP PRN (Reason: Cough) Qty: 30 0RF omeprazole 40 MG capsule,delayed release(DR/EC) 40 mg PO DAILY Referrals Follow up/Referrals: Armando Madden MD [Primary Care Provider] - See instructions Activity Restrictions/Add. Instructions Additional Instructions/Restrictions: * You chose to not take Tamiflu, there is some over the counter cold and flu medications that may help with symptoms that you can take * Lots of rest * Increase Fluids water, Gatorade, powerade, pedialyte,if infant/toddler/child * Alternate Tylenol and / or ibuprofen as discussed for fever, aches, chills Follow up IMMEDIATELY with your family doctor for new or worsening Symptoms OR no noticeable improvement over the next 48-72 hours, 911 for difficulty or breathing * You or your child area contagious until no fever, aches, chills for 24 hours with medication for symptoms * Help Prevent the spread of influenza: * ?Wash your hands often. Use soap and water. Wash your hands after you use the bathroom, change a child's diapers, or sneeze. Wash your hands before you prepare or eat food. Use gel hand cleanser that has 60% alcohol, when soap and water are not available. Do not touch your eyes, nose, or mouth unless you have washed your hands first. * Cover your mouth when you sneeze or cough. Cough into a tissue or the bend of your arm. If you use a tissue, throw it away immediately and wash your hands. * Clean shared items with a germ-killing machine fur cleaner. Clean table surfaces, doorknobs, and light switches. Do not share towels, silverware, and dishes with people who are sick. Wash bed sheets, towels, silverware, and dishes with soap and water. * Wear a mask over your mouth and nose if you are sick. The face mask may help protect others from becoming infected with the flu. Wear the mask when in common areas of your home or if you seek care with a healthcare provider. * Stay away from others if you are sick. Stay at home until 24 hours after your fever and symptoms are gone. Clinical Impressions Clinical Impression: Influenza A Stand Alone Forms Stand Alone Forms: Work/School Release Instructions Patient Instructions: Influenza, DI for Influenza -- Child Discharge ED Provider: Destiny Lindquist [facility] [place] HPI General Stated complaint: h/a, abd pain, congestion, fever Mode of Arrival: Ambulatory Source of Information: Patient Limitations: No Limitations Time Seen by Provider: 03/13/23 19:02 Description of Symptoms (Recalled from Triage Doc. by RN): PATIENT C/O BODY ACHES, FEVER, AND DIZZINESS SINCE YESTERDAY HEENT Symptoms (Recalled from RN notes): Yes Resp Symptoms (Recalled from RN notes): No Skin Symptoms (Recalled from RN notes): No MS Symptoms (Recalled from RN notes): No Functional Status (Recalled from RN notes): WNL History of Present Illness Provider Complaint: Patient states that he was fine yesterday but then yesterday evening he started feeling achy all over, chills, body aches and nasal congestion and today he has continued to have fever chills, body aches, headache and laying around all day states that symptoms hit him all of a sudden and feels like he may have flu or something Related Data Home Medications Medication Instructions Recorded Confirmed omeprazole 40 mg capsule,delayed 40 mg PO DAILY GERD 09/17/21 02/25/23 release Previous Rx's Medication Instructions Recorded amoxicillin 875 mg tablet 875 mg PO Q12H #20 tabs 02/25/23 benzonatate 100 mg capsule 100 mg PO TIDP PRN Cough #30 caps 02/25/23 Allergies Allergy/AdvReac Type Severity Reaction Status Date / Time No Known Allergies Allergy Verified 07/27/20 09:42 Worker's Comp Is this a Worker's Comp case?: No [facility] Disclaimer: The information contained in this section may have been updated after the patient was seen, as this information can be updated by other users. Medical History (Updated 03/13/23 @ 19:20 by Destiny Lindquist APRN) Anxiety History of gastroesophageal reflux (GERD) Family History (Updated 03/28/22 @ 09:15 by Chasity Sanders RN) Other No significant family history Social History (Updated 03/28/22 @ 09:15 by Chasity Sanders RN) Smoking Status: Current every day smoker tobacco type: cigarettes packs per day: 1 alcohol intake: never substance use type: denies use current occupational status: employed Travel in the last 8 weeks: None number of children: 1 current occupational exposures/hazards: No ROS Obtained: Yes All systems reviewed & no additional complaints except as documented and Yes Systems reviewed as appropriate & no additional complaints except as documented Constitutional Constitutional: Reports system reviewed and no additional complaints, except as documented, Reports as per HPI, Reports body ache, Reports chills, Reports fever(s) and Reports headache(s) ENT Ears, Nose, Mouth, and Throat: Reports system reviewed and no additional complaints, except as documented, Reports as per HPI, Reports headache(s), Reports nasal congestion and Reports nasal discharge Cardiovascular Cardiovascular: Reports system reviewed and no additional complaints, except as documented and Reports as per HPI Respiratory Respiratory: Reports system reviewed and no additional complaints, except as documented and Reports as per HPI Gastrointestinal Gastrointestingal: Reports system reviewed and no additional complaints, except as documented, as per HPI and nausea Neurologic Neurologic: Reports headache(s) Physical Exam General General appearance: alert and in no apparent distress ENT ENT exam: Present mucous membranes moist Expanded ENT Exam Nose exam: Absent sinus tenderness Throat exam: Present normal inspection Chest Chest inspection: Present normal inspection and symmetric chest wall rise Respiratory Respiratory exam: Present normal lung sounds bilaterally; Absent respiratory distress or wheezes Cardiovascular Cardiovascular exam: Present regular rate, normal rhythm and tachycardia Abdominal Exam Abdominal exam: Present soft and normal bowel sounds; Absent distention or tenderness Neurological Exam Neurological exam: Present alert, oriented X3 and normal gait Medical Decision Making Jim Inquiry Pt receiving controlled substance: No Jim was queried for this patient: No Vital Signs: 03/13/23 18:50 Temperature 100.3 F H Temperature Source Oral Pulse Rate [Left Brachial] 108 H Respiratory Rate 22 Blood Pressure [Left Arm] 121/86 Blood Pressure Mean [Left Arm] 97 Blood Pressure Source [Left Arm] Automatic Cuff Blood Pressure Position [Left Arm] Sitting 02 Sat by Pulse Oximetry 98 Oxygen Delivery Method Room Air Lab Data Lab results reviewed: Yes I reviewed the patient's lab results.
[2023-03-13 19:17] LABS: UTC Influenza A Antigen Positive (Negative); UTC Influenza B Antigen Negative (Negative)
[2023-03-13] MEDS: IBUPROFEN 200MG/10ML SUSP UDC 400 MG PO (19:24)
[2023-03-13 19:26] VITALS: BP 121/86; PULSE 108; RESP 22; TEMP 37.9; O2SAT 98
== END 2023-03-13 19:28 | disposition home or self-care (01) ==
PROVIDERS: Emergency Provider Nurse Practitioner; PCP Family Medicine
DX: J10.1 Influenza due to other identified influenza virus with other respiratory manifestations (principal); R51.9 Headache, unspecified; R50.9 Fever, unspecified; R09.81 Nasal congestion; R11.0 Nausea; M79.18 Myalgia, other site; K21.9 Gastro-esophageal reflux disease without esophagitis
CPT/HCPCS: 87804; 99212; 99214; G0463

== ENCOUNTER 2023-07-06 11:28 | Emergency (ER) | payer OTHER, SELFPAY ==
[2023-07-06 11:29] VITALS: BP 135/90; PULSE 71; RESP 16; TEMP 36.7; O2SAT 99; BMI 27.3
--- NOTE | 2023-07-06 11:45 | HMH.EDGENADL ---
Discharge Plan Disposition Patient Disposition: Home, Self-Care Condition: Good Prescriptions Prescriptions: No Action amoxicillin [amoxicillin] 875 mg tablet 875 mg PO Q12H Qty: 20 0RF benzonatate [benzonatate] 100 mg capsule 100 mg PO TIDP PRN (Reason: Cough) Qty: 30 0RF omeprazole 40 MG capsule,delayed release(DR/EC) 40 mg PO DAILY Referrals Follow up/Referrals: Armando Madden MD [Primary Care Provider] - See instructions Activity Restrictions/Add. Instructions Additional Instructions/Restrictions: You were evaluated in the emergency department today. Please follow-up closely with your primary care provider. Return to the emergency department for new or worsening symptoms. Take Benadryl at home as needed for itching. Take Tylenol and ibuprofen at home as needed for pain. Clinical Impressions Clinical Impression: Accidental bee sting, Headache Instructions Patient Instructions: DI for Insect Bites and Stings, DI for Headache Discharge ED Provider: Ashlyn Negron General Adult HPI General Chief complaint: Headache Stated complaint: wc-Stung on neck, headache Time Seen by Provider: 07/06/23 11:34 Mode of Arrival: Ambulatory Source of Information: Patient Limitations: No Limitations Description of Symptoms (Recalled from ER Triage Doc. by RN): Patient reports being stung by a bee/hornet on the left side of his neck. Now complains of a headache. History of Present Illness HPI narrative: This patient is a 33-year-old male who denies significant past medical history presenting to the emergency department for evaluation with concern for bee sting and headache. Patient reports he was stung by bee in the right jaw/upper neck just prior to arrival. He notes that he is having burning and stinging at the site, and he also is experiencing generalized headache. He denies any rash, itching, sore throat, throat swelling, throat tingling, oropharyngeal swelling or tingling, nausea, vomiting, diarrhea, diaphoresis, or other concerns. He notes has been stung by bee multiple times in the past and has never had an allergic reaction. The headache concerned him, and since he was at work, he decided to come in to get checked out. Related Data Home Medications Medication Instructions Recorded Confirmed omeprazole 40 mg capsule,delayed 40 mg PO DAILY GERD 09/17/21 02/25/23 release Previous Rx's Medication Instructions Recorded amoxicillin 875 mg tablet 875 mg PO Q12H #20 tabs 02/25/23 benzonatate 100 mg capsule 100 mg PO TIDP PRN Cough #30 caps 02/25/23 Allergies Allergy/AdvReac Type Severity Reaction Status Date / Time No Known Allergies Allergy Verified 07/27/20 09:42 [facility] Disclaimer: The information contained in this section may have been updated after the patient was seen, as this information can be updated by other users. Medical History Anxiety History of gastroesophageal reflux (GERD) Family History Other No significant family history Social History Smoking Status: Current every day smoker tobacco type: cigarettes packs per day: 1 alcohol intake: never substance use type: denies use current occupational status: employed Travel in the last 8 weeks: None number of children: 1 current occupational exposures/hazards: No ROS Obtained: Yes All systems reviewed & no additional complaints except as documented Physical Exam General General appearance: alert and in no apparent distress Head Head exam: atraumatic and normocephalic Eye Eye exam: Present normal appearance, PERRL and EOMI ENT ENT exam: Present normal exam, normal oropharynx, mucous membranes moist and normal external ear exam Neck Neck exam: Present normal inspection, full ROM and trachea midline; Absent tenderness Chest Chest inspection: Present normal inspection and symmetric chest wall rise; Absent tenderness Respiratory Respiratory exam: Present normal lung sounds bilaterally; Absent respiratory distress, wheezes, stridor or accessory muscle use Cardiovascular Cardiovascular exam: Present regular rate and normal rhythm Abdominal Exam Abdominal exam: Present soft; Absent distention, tenderness or guarding Extremities Exam Extremities exam: Present normal inspection, full ROM and normal capillary refill; Absent tenderness or edema Back Exam Back exam: Present normal inspection and full ROM; Absent tenderness Neurological Exam Neurological exam: Present alert, oriented X3, CN II-XII intact and normal gait; Absent motor sensory deficit Psychiatric Psychiatric exam: Present normal affect and normal mood Skin Skin exam: Present warm and dry Medical Decision Making Medical Records Medical records reviewed: Yes I reviewed the patient's medical records. Jim Inquiry Pt receiving controlled substance: No Vital Signs: 07/06/23 11:29 Temperature 98.0 F Temperature Source Oral Pulse Rate [Radial] 71 Respiratory Rate 16 Blood Pressure [Right Arm] 135/90 Blood Pressure Mean [Right Arm] 105 Blood Pressure Source [Right Arm] Automatic Cuff Blood Pressure Position [Right Arm] Sitting 02 Sat by Pulse Oximetry 99 Oxygen Delivery Method Room Air Lab Data Lab results reviewed: Yes I reviewed the patient's lab results. Orders (Tests/Meds): ED MEDICATIONS Discontinued Medications Generic Name Dose Route Start Last Admin Trade Name Teresa PRN Reason Stop Dose Admin Acetaminophen 1,000 mg 07/06/23 11:45 07/06/23 11:50 Acetaminophen 500mg Tab PO 07/06/23 11:46 1,000 mg ONCE ONE Administration Ibuprofen 800 mg 07/06/23 11:45 07/06/23 11:50 Ibuprofen 400 Mg Tablet PO 07/06/23 11:46 800 mg ONCE ONE Administration Medical Decision Narrative: In summary, this patient is a 33-year-old male presenting to the Emergency Department for evaluation of bee sting and headache that started just prior to arrival. Differential diagnoses considered include but are not limited to insect bite/sting, allergic reaction, migraine, tension headache. Ruling out the most morbid conditions drove assessment. On exam, the patient is well-appearing with no significant swelling, erythema, induration, oropharyngeal swelling, stridor, rashes, or other concerns. Vitals are normal. No concern for allergic reaction at this time. He was given oral Tylenol and ibuprofen for symptomatic improvement of his headache. Otherwise, I do not feel the labs, imaging, or intervention are indicated. At this time, it is felt the patient is appropriate for discharge. He was given instructions for supportive management, instructions for close [employer] follow-up, and strict return precautions. He was discharged after all questions were answered. Critical Care Critical Care Time Critical Care Time: No
[2023-07-06] MEDS: ACETAMINOPHEN 500MG TAB 1000 MG PO (11:50)
[2023-07-06] MEDS: IBUPROFEN 400 MG TABLET 800 MG PO (11:50)
[2023-07-06 12:01] VITALS: BP 122/83; PULSE 71; O2SAT 98
[2023-07-06 12:20] VITALS: BP 122/83; PULSE 60; RESP 16; TEMP 36.7; O2SAT 99
== END 2023-07-06 12:22 | disposition home or self-care (01) ==
PROVIDERS: Emergency Provider Emergency Medicine; PCP Family Medicine
DX: R51.9 Headache, unspecified (principal); S10.96XA Insect bite of unspecified part of neck, initial encounter; F17.210 Nicotine dependence, cigarettes, uncomplicated; W57.XXXA Bitten or stung by nonvenomous insect and other nonvenomous arthropods, initial encounter
CPT/HCPCS: 99283

== ENCOUNTER 2023-12-17 13:02 | Emergency (ER) | payer BC, SELFPAY ==
[2023-12-17] VITALS (7 sets, daily range): BP systolic 107–126; BP diastolic 60–82; PULSE 60–85; RESP 16–20; TEMP 36.8–36.9; O2SAT 96–98; BMI 24.3
--- NOTE | 2023-12-17 14:21 | XR_ITS ---
PROCEDURE INFORMATION: Exam: XR Left Foot Exam date and time: 12/17/2023 2:39 PM Age: 33 years old Clinical indication: Injury or trauma; Other: Injured playing kick ball; Blunt trauma; Left; Injury date: 12/17/23; Injury details: Injured top of foot kicking ball; Additional info: Medial dorsal left foot pain TECHNIQUE: Imaging protocol: Radiologic exam of the left foot. Views: 3 or more views. COMPARISON: CR XR ANKLE LT MIN 3V 09/17/2021 11:40 AM FINDINGS: Bones/joints: Normal. Soft tissues: Normal. IMPRESSION: No acute findings.
--- NOTE | 2023-12-17 14:22 | ED_ITS ---
<Statement entered by Nidhi Ferrell MD - 12/17/23 22:52> I was consulted by the MELANIE, and we discussed the complexity of the problems being addressed. I approved the treatment and management plan for this patient's care in the emergency department, thus performing a substantive portion of the medical decision making. Nidhi Ferrell MD, MALCOM, FACEP Discharge Plan Disposition Patient Disposition: Home, Self-Care Condition: Good Prescriptions Prescriptions: No Action amoxicillin [amoxicillin] 875 mg tablet 875 mg PO Q12H Qty: 20 0RF benzonatate [benzonatate] 100 mg capsule 100 mg PO TIDP PRN (Reason: Cough) Qty: 30 0RF omeprazole 40 MG capsule,delayed release(DR/EC) 40 mg PO DAILY Referrals Follow up/Referrals: Reid Mendez DO [Staff Physician] - See instructions Marla Madden [Primary Care Provider] - See instructions Activity Restrictions/Add. Instructions Additional Instructions/Restrictions: Call for an appointment with orthopedics. Return here if you develop severe pain, redness or swelling. Clinical Impressions Clinical Impression: Other sprain of left foot, initial encounter Instructions Patient Instructions: DI for Foot Sprain Print Language Print Language: Peruvian Discharge ED Provider: Ashlyn Negron General Adult HPI General Chief complaint: Extremity Injury, Lower Stated complaint: AO 12/16/23, inj left foot Time Seen by Provider: 12/17/23 14:07 Mode of Arrival: Ambulatory Source of Information: Patient Limitations: No Limitations Description of Symptoms (Recalled from ER Triage Doc. by RN): left top of foot pain History of Present Illness HPI narrative: 33-patient presents with left foot pain. He reports that he was playing kickball yesterday while wearing boots. He reports that he came down on his foot and suddenly felt pain like a pound of bricks . He reports he is unable to bear weight. He has limited range of motion. He denies any bruising or swelling. He has not taken anything for pain. Onset (ago): day(s) (2) Location: lower extremity Radiation: non-radiation Severity: moderate Quality: dull Consistency: constant Relieving factors: none Exacerbating factors: movement Associated symptoms: denies other symptoms Treatments prior to arrival: none Related Data Home Medications ?Medication ?Instructions ?Recorded ?Confirmed omeprazole 40 mg capsule,delayed 40 mg PO DAILY GERD 09/17/21 02/25/23 release Previous Rx's ?Medication ?Instructions ?Recorded amoxicillin 875 mg tablet 875 mg PO Q12H #20 tabs 02/25/23 benzonatate 100 mg capsule 100 mg PO TIDP PRN Cough #30 caps 02/25/23 Allergies Allergy/AdvReac Type Severity Reaction Status Date / Time No Known Allergies Allergy Verified 07/27/20 09:42 [facility] Disclaimer: The information contained in this section may have been updated after the patient was seen, as this information can be updated by other users. Medical History Anxiety History of gastroesophageal reflux (GERD) Family History Other No significant family history Social History Smoking Status: Current every day smoker tobacco type: cigarettes packs per day: 1 alcohol intake: never substance use type: denies use current occupational status: employed Travel in the last 8 weeks: None number of children: 1 current occupational exposures/hazards: No Other Medical History Have you received the Flu Vaccine for this season: No Have you received the Pneumonia Vaccine: No ROS Obtained: Yes Systems reviewed as appropriate & no additional complaints except as documented Physical Exam General General appearance: alert and in no apparent distress Head Head exam: atraumatic and normocephalic Eye Eye exam: Present normal appearance and EOMI Chest Chest inspection: Present symmetric chest wall rise Respiratory Respiratory exam: Present normal lung sounds bilaterally; Absent wheezes or stridor Cardiovascular Cardiovascular exam: Present regular rate and normal rhythm; Absent systolic murmur Extremities Exam Extremities exam: Present other (Left foot TTP medial, dorsal foot. N/V intact. Limited dorsiflexion. Full plantar flexion. ) Neurological Exam Neurological exam: Present alert and oriented X3 Psychiatric Psychiatric exam: Present normal affect and normal mood Skin Skin exam: Present warm, dry and intact Medical Decision Making Medical Records Screening: Per USPSTF and CDC recommendations, given the prevalence of disease in our region, it is our hospital?s policy to screen for HIV and viral Hepatitis for all patients aged 18 and over and those with ongoing risk factors. In summary patient is a in summary patient is a [33 year old male] who presents the emergency department for evaluation of [left foot pain]. Patient is [hemodynamically stable] upon arrival afebrile. [Left routing equipment tender medial dorsal foot, N/V intact, limited dorsiflexion]. Differential diagnosis includes [ fracture,sprain, contusion]. Initial workup will be conducted with left foot xray, declines any medication for pain. Initial workup reviewed by me [hematologic labs are remarkable for? Imaging remarkable for? Urinalysis remarkable for?]. Upon repeat evaluation [patient had acceptable resolution of symptoms, had persistent pain for which additional interventions were conducted (describe interventions), tolerated p.o., was ambulatory, etc.]. Given this [patient is appropriate for discharge at this time will be discharged with a prescription for? The case was discussed with hospital medicine regarding management and they will meet the patient their service for continued valuation at this time? Etc.]. I informally interpreted the patient's foot Xray which was normal. Official read IMPRESSION: No acute findings. Patient discharged with a walking boot for comfort. Advised NSAIDs OTC. Follow up with orthopedics for recheck. Patient is agreeable. Jim Inquiry Pt receiving controlled substance: No Vital Signs: 12/17/23 13:03 12/17/23 14:00 12/17/23 14:30 Temperature 98.3 F Temperature Source Oral Pulse Rate 68 62 Pulse Rate [Right] 85 Respiratory Rate 16 Blood Pressure 114/77 118/82 Blood Pressure [Right Arm] 126/81 Blood Pressure Mean 89 90 Blood Pressure Mean [Right Arm] 96 02 Sat by Pulse Oximetry 98 97 97 Oxygen Delivery Method Room Air Room Air Room Air 12/17/23 15:00 12/17/23 15:30 12/17/23 16:00 Temperature Temperature Source Pulse Rate 83 60 64 Pulse Rate [Right] Respiratory Rate 18 20 Blood Pressure 113/75 109/73 L 107/60 L Blood Pressure [Right Arm] Blood Pressure Mean 82 80 75 Blood Pressure Mean [Right Arm] 02 Sat by Pulse Oximetry 97 97 96 Oxygen Delivery Method Room Air Room Air Room Air Orders (Tests/Meds): ED MEDICATIONS Discontinued Medications Generic Name Dose Route Start Last Admin Trade Name Freq PRN Reason Stop Dose Admin Non-Formulary Medication 1 unit 12/17/23 16:54 Walking Boot TP 12/17/23 16:55 ONCE ONE ORDERS Category Date Time Status Foot XR left minimum 3 views [XR foot LT min 3V] Stat Exams 12/17/23 14:21 Completed HIV (1&2) Antibody Rapid Stat Lab 12/17/23 13:31 Ordered Hep C Ab with Reflex to RNA Stat Lab 12/17/23 13:31 Ordered Radiology Data #1: Image(s): Foot/Toes (Left foot IMPRESSION: No acute findings. ) Critical Care Critical Care Time Critical Care Time: No
== END 2023-12-17 17:10 | disposition home or self-care (01) ==
PROVIDERS: Emergency Provider Emergency Medicine; PCP Registered Nurse
DX: S93.692A Other sprain of left foot, initial encounter (principal); M79.672 Pain in left foot; X58.XXXA Exposure to other specified factors, initial encounter; Y93.69 Activity, other involving other sports and athletics played as a team or group; Y92.9 Unspecified place or not applicable
CPT/HCPCS: 73630; 99283

== ENCOUNTER 2024-02-07 16:32 | Emergency (ER) | payer BC, SELFPAY ==
[2024-02-07 16:50] VITALS: BP 129/81; PULSE 68; RESP 19; TEMP 36.8; O2SAT 99; BMI 27.0
--- NOTE | 2024-02-07 17:23 | EXP.UTC ---
Discharge Plan Disposition Patient Disposition: Home, Self-Care Condition: Good Prescriptions Prescriptions: No Action omeprazole 40 MG capsule,delayed release(DR/EC) 40 mg PO DAILY Referrals Follow up/Referrals: Quan To MD [Primary Care Provider] - See instructions Activity Restrictions/Add. Instructions Additional Instructions/Restrictions: Follow up with your Family Doctor if symptoms persist Take your anxiety medication while home if it makes you sleepy Straight to ER if any life threatening symptoms Clinical Impressions Clinical Impression: Breathing problem Instructions Patient Instructions: DI for Shortness of Breath, DI for Anxiety -- Adult Print Language Print Language: Qatari Discharge ED Provider: Destiny Lindquist [facility] [place] General Stated complaint: SOA Mode of Arrival: Ambulatory Source of Information: Patient Limitations: No Limitations Time Seen by Provider: 02/07/24 17:23 Description of Symptoms (Recalled from Triage Doc. by RN): PATIENT C/O SOA X 1 WEEK HEENT Symptoms (Recalled from RN notes): No Resp Symptoms (Recalled from RN notes): Yes Skin Symptoms (Recalled from RN notes): No MS Symptoms (Recalled from RN notes): No Functional Status (Recalled from RN notes): WNL History of Present Illness Provider Complaint: Patient states that for the last week on and off he has felt a little SOA at times Denies feeling ill States that he is not having any shortness of breath right now just wanted someone to listen to him States he has anxiety and not sure if that may be causing it or not Denies fever, denies chills, denies chest congestion or cough Related Data Home Medications ?Medication ?Instructions ?Recorded ?Confirmed omeprazole 40 mg capsule,delayed 40 mg PO DAILY GERD 09/17/21 02/07/24 release Allergies Allergy/AdvReac Type Severity Reaction Status Date / Time No Known Allergies Allergy Verified 07/27/20 09:42 Worker's Comp Is this a Worker's Comp case?: No [facility] Disclaimer: The information contained in this section may have been updated after the patient was seen, as this information can be updated by other users. Medical History Anxiety History of gastroesophageal reflux (GERD) Family History Other No significant family history Social History Smoking Status: Current every day smoker tobacco type: cigarettes packs per day: 1 alcohol intake: never substance use type: denies use current occupational status: employed number of children: 1 current occupational exposures/hazards: No ROS Obtained: Yes All systems reviewed & no additional complaints except as documented and Yes Systems reviewed as appropriate & no additional complaints except as documented Constitutional Constitutional: Reports system reviewed and no additional complaints, except as documented and Reports as per HPI ENT Ears, Nose, Mouth, and Throat: Reports system reviewed and no additional complaints, except as documented, Reports as per HPI and Reports nasal congestion Cardiovascular Cardiovascular: Reports system reviewed and no additional complaints, except as documented, Reports as per HPI, Denies dyspnea and Denies dyspnea on exertion Respiratory Respiratory: Reports system reviewed and no additional complaints, except as documented, Reports as per HPI, Reports shortness of breath (on and off x 1 week), Denies chest congestion, Denies cough, Denies dyspnea, Denies dyspnea on exertion, Denies hemoptysis, Denies pain on inspiration, Denies pain with cough, Denies pain with breathing and Denies wheezing Gastrointestinal Gastrointestingal: Reports system reviewed and no additional complaints, except as documented and as per HPI Allergic/Immunologic Allergic/Immunologic: Denies wheezing Physical Exam General General appearance: alert and in no apparent distress ENT ENT exam: Present normal exam, normal oropharynx, mucous membranes moist and TM's normal bilaterally Respiratory Respiratory exam: Present normal lung sounds bilaterally; Absent respiratory distress or wheezes Cardiovascular Cardiovascular exam: Present regular rate, normal rhythm and normal heart sounds Abdominal Exam Abdominal exam: Present soft and normal bowel sounds; Absent distention or tenderness Neurological Exam Neurological exam: Present alert, oriented X3 and normal gait Medical Decision Making Medical Records Screening: Per USPSTF and CDC recommendations, given the prevalence of disease in our region, it is our hospital?s policy to screen for HIV and viral Hepatitis for all patients aged 18 and over and those with ongoing risk factors. Jim Inquiry Pt receiving controlled substance: No Jim was queried for this patient: No Vital Signs: 02/07/24 16:50 Temperature 98.2 F Temperature Source Oral Pulse Rate [Left Brachial] 68 Respiratory Rate 19 Blood Pressure [Left Arm] 129/81 Blood Pressure Mean [Left Arm] 97 Blood Pressure Source [Left Arm] Automatic Cuff Blood Pressure Position [Left Arm] Sitting 02 Sat by Pulse Oximetry 99 Oxygen Delivery Method Room Air Radiology Data #1: Image(s): Chest Image Reviewed: Yes I have reviewed radiologist's interpretation IMPRESSION: No dense parenchymal consolidation, pleural effusion, or pneumothorax. Medical Decision Narrative: Discussed transfer to the ED and lab work and he declined states that he thinks it may be anxiety he is prescribed hydroxyzine and doesnt take it much due to it makes him sleepy States if it continues to happen he will follow up with PCP that he is not feeling short of breath right now it is only every now and then
--- NOTE | 2024-02-07 17:25 | XR_ITS ---
PROCEDURE INFORMATION: Exam: XR Chest Exam date and time: 02/07/2024 5:23 PM Age: 33 years old Clinical indication: Shortness of breath TECHNIQUE: Imaging protocol: Radiologic exam of the chest. Views: 2 views. COMPARISON: No relevant prior studies available. FINDINGS: Lungs: No evidence of acute pulmonary disease or infiltrates Pleural spaces: No large effusion or pneumothorax. Heart/Mediastinum: No evidence of mediastinal widening or cardiac silhouette enlargement; the mediastinum and heart appear within normal limits for contour and size. Bones/joints: No evidence of acute osseous abnormalities within the visualized portions of the thoracic spine and ribs. Osseous structures appear appropriate for patient age. IMPRESSION: No dense parenchymal consolidation, pleural effusion, or pneumothorax.
[2024-02-07 18:23] VITALS: BP 129/81; PULSE 68; RESP 19; TEMP 36.8; O2SAT 99
== END 2024-02-07 18:24 | disposition home or self-care (01) ==
PROVIDERS: Emergency Provider Nurse Practitioner; PCP Psychiatry & Neurology Sleep Medicine
DX: R06.02 Shortness of breath (principal)
CPT/HCPCS: 71046; 99213; G0381

== ENCOUNTER 2024-06-03 11:55 | Emergency (ER) | payer BC, SELFPAY ==
[2024-06-03 12:01] VITALS: BMI 56.9
[2024-06-03 12:05] VITALS: BP 106/76; PULSE 89; RESP 18; TEMP 36.6; O2SAT 100; BMI 25.8
--- NOTE | 2024-06-03 12:05 | ECG_ITS ---
APPROVED REPORT Exam: Resting ECG HR:79 bpm ECG Measurements Heart Rate 79 AXES ID 150 P 69 QRSd 82 QRS 81 QT 352 T 58 QTc 386 Conclusion SINUS RHYTHM NORMAL ECG Electronically signed by : KARIN SHARMA, 06/04/2024 03:47:49
--- NOTE | 2024-06-03 12:13 | PC.NURSE ---
pt brought to Rm 10 from triage. 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 pt states this triggered a panic attack making his neck and hands tingle-this has improved as he has been calming down. pt also reports nausea and diarrhea that began this am.
--- NOTE | 2024-06-03 12:28 | XR_ITS ---
FINAL REPORT CLINICAL HISTORY: Shortness of air, chest discomfort, smoker, no sx COMPARISON: 03/27/2020 FINDINGS: A portable view of the chest was obtained. Cardiac and mediastinal silhouettes are within normal limits. The lungs are clear. There is no pleural effusion or pneumothorax. IMPRESSION: No acute process on this portable exam. Reviewed, Interpreted and Dictated by Irene Badillo MD Transcribed by Valeria Rosa Authenticated and [facility]
[2024-06-03 12:29] VITALS: BP 112/61; BP 121/82; BP 123/80; PULSE 68; PULSE 72; PULSE 75
--- NOTE | 2024-06-03 12:30 | ED_ITS ---
<Statement entered by Ashlyn Negron DO - 06/03/24 14:08> I was consulted by the MELANIE, and we discussed the complexity of the problems being addressed. I approved the treatment and management plan for this patient's care in the emergency department, thus performing a substantive portion of the medical decision making. Ashlyn Negron DO Discharge Plan Disposition Patient Disposition: Home, Self-Care Condition: Good Prescriptions Prescriptions: No Action omeprazole 40 MG capsule,delayed release(DR/EC) 40 mg PO DAILY Referrals Follow up/Referrals: Armando Madden MD [Primary Care Provider] - See instructions Activity Restrictions/Add. Instructions Additional Instructions/Restrictions: Return to the emergency department with any worsening signs or symptoms please follow-up with your family doctor in the upcoming days, continue to take all medications at home as prescribed, I recommend good intake with fluids and solids. Clinical Impressions Clinical Impression: Pre-syncope Instructions Patient Instructions: Dizziness, Nonvertigo Print Language Print Language: Slovak Discharge ED Provider: Ashlyn Negron General Adult HPI <ROZ Tristan - Last Filed: 06/03/24 13:45> General Chief complaint: Dizziness Stated complaint: SOA tingling hands/feet feels heavy lightheaded Time Seen by Provider: 06/03/24 12:16 Mode of Arrival: Ambulatory Source of Information: Patient Description of Symptoms (Recalled from ER Triage Doc. 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 when he began to feel lightheaded, dizzy nauseous, and tingly , patient did not go from a sitting to standing position, when this occurred, patient denied any true syncopal event, any fever or chills, did have some chest discomfort and shortness of air during this initial episode, however this is since subsided, as well as all of his other symptomatology, denies any upper or lower extremity weakness, denies any abdominal pain, vomiting, no constipation, did have some diarrhea this morning, denied any urinary type symptomatology, patient is a current everyday smoker, otherwise medical history consistent with GERD, anxiety, utilizes hydroxyzine as needed. Denies any other alcohol or drug use, initial triage vitals unremarkable. Onset (ago): hour(s) Related Data Home Medications ?Medication ?Instructions ?Recorded ?Confirmed omeprazole 40 mg capsule,delayed 40 mg PO DAILY GERD 09/17/21 06/03/24 release Allergies Allergy/AdvReac Type Severity Reaction Status Date / Time azithromycin Allergy Intermediate Rash Verified 06/03/24 12:28 [facility] <ROZ Tristan - Last Filed: 06/03/24 13:45> [facility] Disclaimer: The information contained in this section may have been updated after the patient was seen, as this information can be updated by other users. Medical History Anxiety History of gastroesophageal reflux (GERD) Family History Other No significant family history Social History Smoking Status: Current every day smoker tobacco type: cigarettes packs per day: 1 alcohol intake: never substance use type: denies use current occupational status: employed Travel in the last 8 weeks: None number of children: 1 current occupational exposures/hazards: No Have you lived/traveled outside [place] in past 30 days?: No Contact w/someone who lives/traveled outside US past 30 days?: No Exposure to someone with infectious disease in past 14 days?: No Do you have a fever (greater than 100.4 F or 38 C)?: No Have you tested positive for COVID-19: No Exposed to someone with COVID-19 in past 14 days?: No Do you have a sore throat?: No Do you have a cough?: No Do you have any weakness?: No Do you have any diarrhea?: No Are you experiencing any unusual bleeding?: No Do you have any muscle aches/pain?: No Do you have any abdominal pain?: No Are you experiencing loss of taste or smell?: No Other Medical History Have you received the Flu Vaccine for this season: No Have you received the Pneumonia Vaccine: No <ROZ Tristan - Last Filed: 06/03/24 13:45> ROS Obtained: Yes All systems reviewed & no additional complaints except as documented Physical Exam <ROZ Tristan - Last Filed: 06/03/24 13:45> General General appearance: alert and in no apparent distress Head Head exam: atraumatic and normocephalic Eye Eye exam: Present PERRL and EOMI ENT ENT exam: Present mucous membranes moist Neck Neck exam: Present normal inspection Chest Chest inspection: Present normal inspection and symmetric chest wall rise Respiratory Respiratory exam: Present normal lung sounds bilaterally; Absent respiratory distress Cardiovascular Cardiovascular exam: Present regular rate and normal rhythm Abdominal Exam Abdominal exam: Present soft; Absent tenderness Extremities Exam Extremities exam: Present normal inspection Neurological Exam Neurological exam: Present alert and oriented X3 Psychiatric Psychiatric exam: Present normal affect Skin Skin exam: Present warm and dry Medical Decision Making <ROZ Tristan - Last Filed: 06/03/24 13:45> Medical Records Medical records reviewed: Yes I reviewed the patient's medical records. Screening: Per USPSTF and CDC recommendations, given the prevalence of disease in our region, it is our hospital?s policy to screen for HIV and viral Hepatitis for all patients aged 18 and over and those with ongoing risk factors. Jim Inquiry Pt receiving controlled substance: No Jim was queried for this patient: No Vital Signs: 06/03/24 12:05 06/03/24 12:29 Temperature 98 F Temperature Source Oral Pulse Rate [Orthostatic Lying Left Radial] 72 Pulse Rate [Orthostatic Sitting Left Radial] 68 Pulse Rate [Orthostatic Standing Left Radial] 75 Pulse Rate [Right] 89 Respiratory Rate 18 Blood Pressure [Orthostatic Lying Left Arm] 112/61 Blood Pressure [Orthostatic Sitting Left Arm] 121/82 Blood Pressure [Orthostatic Standing Left Arm] 123/80 Blood Pressure [Right Arm] 106/76 L Blood Pressure Mean [Right Arm] 86 Blood Pressure Source [Right Arm] Automatic Cuff Blood Pressure Position [Right Arm] Sitting 02 Sat by Pulse Oximetry 100 Oxygen Delivery Method Room Air Lab Data Lab Results 06/03/24 12:26: WBC 8.6, RBC 5.00, Hgb 15.2, Hct 42.7, MCV 85.4, MCH 30.4, MCHC 35.6 H, RDW 13.0, Plt Count 276, MPV 10.0, Neut % (Auto) 55.6, Lymph % (Auto) 35.2, Miller % (Auto) 7.1, Eos % (Auto) 1.6, Baso % (Auto) 0.4, Neut # (Auto) 4.8, Lymph # (Auto) 3.0, Miller # (Auto) 0.6, Eos # (Auto) 0.1, Baso # (Auto) 0.0, D- Dimer 0.26, Sodium 139, Potassium 3.8, Chloride 107, Carbon Dioxide 29, Anion Gap 6.8, BUN 9, Creatinine 0.80, Estimated Creat Clear 142, Estimated GFR 111, Est GFR ( Amer) 134, Glucose 129 H, Calcium 10.5 H, Magnesium 1.7, Total Bilirubin 0.6, AST 38, ALT 43, Alkaline Phosphatase 86, Troponin I < 0.01, NT-Pro-B Natriuret Pep < 20.0, Total Protein 7.3, Albumin 4.9, Globulin 2.4, A lbumin/Globulin Ratio 2.0 H 06/03/24 12:26 06/03/24 12:26 Orders (Tests/Meds): ED MEDICATIONS Discontinued Medications Generic Name Dose Route Start Last Admin Trade Name Freq PRN Reason Stop Dose Admin Sodium Chloride 1,000 mls @ 999 mls/hr 06/03/24 12:28 06/03/24 12:42 Sod Chlor 0.9% 1000ml Bag IV 06/03/24 13:28 999 mls/hr .Q1H1M ONE Administration ORDERS Category Date Time Status XR chest portable Stat Exams 06/03/24 12:28 Taken Complete Blood Count Auto Diff Stat Lab 06/03/24 12:26 Completed Comprehensive Metabolic Panel Stat Lab 06/03/24 12:26 Completed D-Dimer Stat Lab 06/03/24 12:26 Completed HIV Combo Stat Lab 06/03/24 12:26 Received Hepatitis C Ab Qual. W/ RFX Stat Lab 06/03/24 12:26 Received Magnesium Stat Lab 06/03/24 12:26 Completed NT Pro Brain Natriuretic Pep. Stat Lab 06/03/24 12:26 Completed Troponin I Q3H Lab 06/03/24 15:30 Ordered Troponin I Q3H Lab 06/03/24 18:30 Ordered Troponin I Stat Lab 06/03/24 12:26 Completed Medical Decision Narrative: 34-year-old male presents the emergency department with presyncopal type event, differential diagnose include not limited to vasovagal syncope, hypovolemia, hypoglycemia, cardiac arrhythmia, electrolyte disturbance, acute coronary syndrome, anxiety type reaction, panic attack, orthostatic hypotension, situational syncope, cardiogenic syncope. Discussed the patient's case with attending physician Will obtain basic electro studies, D-dimer, magnesium level proBNP, troponin, glucose, obtain EKG, x-ray of the chest, and will give 1 L IV NS. CBC unremarkable D-dimer is 0.26, which rules out VTE CMP is notable for mild hypercalcemia 10.5, troponin within normal limits proBNP within normal limit. I will the attending physician with the patient's EKG, see above documentation for details, however patient has normal sinus rhythm, no signs of ST segment elevation or QT interval lengthening at this time. Reexamination of the patient approximately 1:40 PM. Patient is resting comfortably in bed, otherwise has remained hemodynamically stable without his time in the emergency department, he has no other signs or symptoms, no syncopal episode, no episodes of presyncope nausea lightheadedness dizziness at this time, orthostatic vital signs are negative. I personally reviewed the patient's chest x-ray, there are no signs of consolidation no pneumonia no pneumothorax, pending radiology report. However patient is ready to be discharged home to self-care, I think this is appropriate. Patient will return to emergency department with any worsening signs or symptoms. Patient will follow-up with PCP as directed. Patient voiced understand agree with current treatment plan/discharge plan. [place] syncope rule/algorithm is negative. <Ashlyn Negron, DO - Last Filed: 06/03/24 13:39> Vital Signs: 06/03/24 12:05 06/03/24 12:29 Temperature 98 F Temperature Source Oral Pulse Rate [Orthostatic Lying Left Radial] 72 Pulse Rate [Orthostatic Sitting Left Radial] 68 Pulse Rate [Orthostatic Standing Left Radial] 75 Pulse Rate [Right] 89 Respiratory Rate 18 Blood Pressure [Orthostatic Lying Left Arm] 112/61 Blood Pressure [Orthostatic Sitting Left Arm] 121/82 Blood Pressure [Orthostatic Standing Left Arm] 123/80 Blood Pressure [Right Arm] 106/76 L Blood Pressure Mean [Right Arm] 86 Blood Pressure Source [Right Arm] Automatic Cuff Blood Pressure Position [Right Arm] Sitting 02 Sat by Pulse Oximetry 100 Oxygen Delivery Method Room Air Lab Data Lab Results 06/03/24 12:26: WBC 8.6, RBC 5.00, Hgb 15.2, Hct 42.7, MCV 85.4, MCH 30.4, MCHC 35.6 H, RDW 13.0, Plt Count 276, MPV 10.0, Neut % (Auto) 55.6, Lymph % (Auto) 35.2, Miller % (Auto) 7.1, Eos % (Auto) 1.6, Baso % (Auto) 0.4, Neut # (Auto) 4.8, Lymph # (Auto) 3.0, Miller # (Auto) 0.6, Eos # (Auto) 0.1, Baso # (Auto) 0.0, D- Dimer 0.26, Sodium 139, Potassium 3.8, Chloride 107, Carbon Dioxide 29, Anion Gap 6.8, BUN 9, Creatinine 0.80, Estimated Creat Clear 142, Estimated GFR 111, Est GFR ( Amer) 134, Glucose 129 H, Calcium 10.5 H, Magnesium 1.7, Total Bilirubin 0.6, AST 38, ALT 43, Alkaline Phosphatase 86, Troponin I < 0.01, NT-Pro-B Natriuret Pep < 20.0, Total Protein 7.3, Albumin 4.9, Globulin 2.4, A lbumin/Globulin Ratio 2.0 H Orders (Tests/Meds): ED MEDICATIONS Discontinued Medications Generic Name Dose Route Start Last Admin Trade Name Freq PRN Reason Stop Dose Admin Sodium Chloride 1,000 mls @ 999 mls/hr 06/03/24 12:28 06/03/24 12:42 Sod Chlor 0.9% 1000ml Bag IV 06/03/24 13:28 999 mls/hr .Q1H1M ONE Administration ORDERS Category Date Time Status XR chest portable Stat Exams 06/03/24 12:28 Taken Complete Blood Count Auto Diff Stat Lab 06/03/24 12:26 Completed Comprehensive Metabolic Panel Stat Lab 06/03/24 12:26 Completed D-Dimer Stat Lab 06/03/24 12:26 Completed HIV Combo Stat Lab 06/03/24 12:26 Received Hepatitis C Ab Qual. W/ RFX Stat Lab 06/03/24 12:26 Received Magnesium Stat Lab 06/03/24 12:26 Completed NT Pro Brain Natriuretic Pep. Stat Lab 06/03/24 12:26 Completed Troponin I Q3H Lab 06/03/24 15:30 Ordered Troponin I Q3H Lab 06/03/24 18:30 Ordered Troponin I Stat Lab 06/03/24 12:26 Completed ECG Data Tracing #1: I reviewed this ECG and interpreted as documented below: Normal sinus rhythm with a ventricular to [address] changes concerning for ischemia. Normal axis and intervals ECG initial impression date: 06/03/24 ECG initial impression time: 12:07 Critical Care <ROZ Tristan - Last Filed: 06/03/24 13:45> Critical Care Time Critical Care Time: No
[2024-06-03 12:41] LABS: Basophils % 0.4 % (0.1-2.0); Eosinophils # 0.1 K/mm3 (0.0-0.4); Eosinophils % 1.6 % (0.1-12.0); Hematocrit 42.7 % (42.0-52.0); Hemoglobin 15.2 g/dL (14.1-18.0); Lymphocytes % 35.2 % (10-50); Mean Corpuscular HGB Conc 35.6 g/dL (31.8-35.4); Mean Corpuscular Hemoglobin 30.4 pg (27.0-31.2); Mean Corpuscular Volume 85.4 fl (80-94); Monocytes # 0.6 K/mm3 (0.1-1.0); Monocytes % 7.1 % (1.7-9.3); Neutrophils # 4.8 K/mm3 (1.8-7.8); Neutrophils % 55.6 % (37.0-80.0); Platelet Count 276 K/mm3 (142-424); White Blood Count 8.6 K/mm3 (4.8-10.8)
[2024-06-03] MEDS: 0.9 % SODIUM CHLORIDE 1000ML 1,000 ML 999 ML IV (12:42)
[2024-06-03 12:54] LABS: Alanine Aminotransferase 43 U/L (12-78); Albumin Level 4.9 g/dl (3.5-5.0); Alkaline Phosphatase 86 U/L (38-126); Anion Gap 6.8 mEq/L (5-15); Aspartate Amino Transferase 38 U/L (17-59); Bilirubin,Total 0.6 mg/dl (0.2-1.3); Blood Urea Nitrogen 9 mg/dl (9-20); Calcium 10.5 mg/dl (8.4-10.2); Carbon Dioxide 29 mmol/L (22.0-30.0); Chloride 107 mmol/L (98-107); Creatinine Clearance Estimated 142 mL/min (50-200); Estimated Glomerular Filt Rate 111 ml/min (>60); GFR (African American) 134 ML/MIN (>60); Globulin 2.4 g/dL (1.3-3.2); Glucose 129 mg/dl (74-100); Magnesium 1.7 mg/dl (1.6-2.3); Potassium 3.8 mmoL/L (3.5-5.1); Sodium 139 mmol/L (136-145); Total Protein,Serum 7.3 g/dl (6.3-8.2)
[2024-06-03 12:58] LABS: D-Dimer 0.26 ug/mL (0.0-0.5)
[2024-06-03 13:04] LABS: NT Pro Brain Natriuretic Pep. < 20.0 pg/mL (0-125)
[2024-06-03 13:06] LABS: Troponin I < 0.01 ng/ml (0.00-0.034)
[2024-06-03 13:57] VITALS: BP 131/80; PULSE 75; RESP 16; TEMP 36.7; O2SAT 98
[2024-06-03 14:00] LABS: HIV Combo NEGATIVE (Negative)
[2024-06-03 14:07] LABS: Hepatitis C Ab Qual. W/ RFX NEGATIVE (Negative)
[2024-06-04 07:22] LABS: POC Glucose,Bedside 142 (70-110)
== END 2024-06-03 13:58 | disposition home or self-care (01) ==
PROVIDERS: Physician Assistant; Emergency Provider Emergency Medicine; PCP Family Medicine
DX: R55 Syncope and collapse (principal); R42 Dizziness and giddiness; R11.0 Nausea; R20.2 Paresthesia of skin; R07.89 Other chest pain; R06.02 Shortness of breath; F17.210 Nicotine dependence, cigarettes, uncomplicated
CPT/HCPCS: 71045; 80053; 82962; 83735; 83880; 84484; 85025; 85378; 86803; 87389; 93005; 96360; 99284; J7030

== ENCOUNTER 2024-08-28 08:39 | Emergency (ER) | payer BC, SELFPAY ==
[2024-08-28 08:46] VITALS: BP 132/80; PULSE 66; O2SAT 99
[2024-08-28 08:48] VITALS: BP 132/80; PULSE 77; RESP 19; TEMP 36.6; O2SAT 99; BMI 23.6
[2024-08-28 08:56] VITALS: BP 132/80; PULSE 77; RESP 17; TEMP 36.6; O2SAT 99
[2024-08-28 09:00] VITALS: BP 124/77; PULSE 63; O2SAT 100
--- NOTE | 2024-08-28 09:12 | HMH.EDGENADL ---
Discharge Plan Disposition Patient Disposition: Home, Self-Care Prescriptions Prescriptions: No Action omeprazole 40 MG capsule,delayed release(DR/EC) 40 mg PO DAILY Referrals Follow up/Referrals: Armando Madden MD [Primary Care Provider, Medical] - See instructions Cedrick Patel II, MD [Staff Physician, Gastroenterology] - See instructions Activity Restrictions/Add. Instructions Additional Instructions/Restrictions: No emergent medical condition identified today. No evidence of complete esophageal obstruction. Please return with symptoms that we discussed. Given the fact that you have had a globus sensation that is been worsening for the last several weeks I highly recommend you follow-up closely with our refinery operator alkylation for further diagnostic tests most likely an EGD as discussed. Continue your omeprazole. Avoid medications or foods that make your chronic reflux worse as well. This would include things such as alcohol spicy foods eating late at night lying down right after you eat etc. Clinical Impressions Clinical Impression: Globus sensation Instructions Patient Instructions: DI for Diarrhea and Traveler's Diarrhea -- Adult, DI for Diarrhea and Traveler's Diarrhea -- Child, DI for Nausea -- Adult, DI for Nausea -- Child Print Language Print Language: Cuban Discharge ED Provider: Nidhi Ferrell General Adult HPI General Chief complaint: Nausea/Vomiting/Diarrhea Stated complaint: diff. swallowing 2+weeks weight loss Time Seen by Provider: 08/28/24 09:04 Mode of Arrival: Ambulatory Source of Information: Patient Description of Symptoms (Recalled from ER Triage Doc. by RN): Patient presents to ED from home with c/o difficulty swallowing sloid foods x2 weeks. Notes 10lbs weight loss after only eating yogurt the last several days. Hx of GERD noted. History of Present Illness HPI narrative: Patient is a 34-year-old male currently asymptomatic presented today with 10 pound weight loss and difficulty swallowing solid foods over the last 2 weeks. Has a history of GERD over the last 15 years has been on omeprazole for the last 5 years. Denies any other symptoms currently. Related Data Home Medications ?Medication ?Instructions ?Recorded ?Confirmed omeprazole 40 mg capsule,delayed 40 mg PO DAILY GERD 09/17/21 06/03/24 release Allergies Allergy/AdvReac Type Severity Reaction Status Date / Time azithromycin Allergy Intermediate Rash Verified 06/03/24 12:28 [facility] Disclaimer: The information contained in this section may have been updated after the patient was seen, as this information can be updated by other users. Medical History Anxiety History of gastroesophageal reflux (GERD) Family History Other No significant family history Social History Smoking Status: Current every day smoker tobacco type: cigarettes packs per day: 1 alcohol intake: never substance use type: denies use current occupational status: employed Travel in the last 8 weeks?: None number of children: 1 current occupational exposures/hazards: No Other Medical History Have you received the Flu Vaccine for this season: No Have you received the Pneumonia Vaccine: No ROS Obtained: Yes All systems reviewed & no additional complaints except as documented Physical Exam General General appearance: alert and in no apparent distress ENT ENT exam: Present other (Tolerating secretions well) Respiratory Respiratory exam: Present normal lung sounds bilaterally Cardiovascular Cardiovascular exam: Present regular rate Neurological Exam Neurological exam: Present alert and oriented X3 Medical Decision Making Medical Records Screening: Per USPSTF and CDC recommendations, given the prevalence of disease in our region, it is our hospital?s policy to screen for HIV and viral Hepatitis for all patients aged 18 and over and those with ongoing risk factors. Jim Inquiry Pt receiving controlled substance: No Vital Signs: 08/28/24 08:46 08/28/24 08:48 08/28/24 08:56 Temperature 97.9 F 97.9 F Temperature Source Oral Oral Pulse Rate 66 77 Pulse Rate [Right Brachial] 77 Respiratory Rate 19 17 Blood Pressure 132/80 132/80 Blood Pressure [Right Arm] 132/80 Blood Pressure Mean [Right Arm] 97 Blood Pressure Source Automatic Cuff Blood Pressure Position Sitting Blood Pressure Position [Right Arm] Sitting 02 Sat by Pulse Oximetry 99 99 99 Oxygen Delivery Method Room Air Room Air Room Air 08/28/24 09:00 Temperature Temperature Source Pulse Rate 63 Pulse Rate [Right Brachial] Respiratory Rate Blood Pressure 124/77 Blood Pressure [Right Arm] Blood Pressure Mean [Right Arm] Blood Pressure Source Blood Pressure Position Blood Pressure Position [Right Arm] 02 Sat by Pulse Oximetry 100 Oxygen Delivery Method Room Air Medical Decision Narrative: 34-year-old with above history and physical no emergent medical condition as the patient has no evidence of an ongoing obstruction. Differential includes pathology such as chronic GERD eosinophilic esophagitis etc. Will need comprehensive workup from our refinery operator alkylation. We were able to call Dr. Patel clinic and the patient will be able to get into their clinic at 11 AM to see Christina casas. No further emergent evaluation or management indicated at the moment. Patient does not have any evidence of significant or severe dehydration and is tolerating liquids fine. Critical Care Critical Care Time Critical Care Time: No
--- NOTE | 2024-08-28 09:13 | PC.NURSE ---
Called Dr Patel office to see if they could schedule an appt. today to see this pt. They advised they could work him in with Christina Agustin at 11 this morning
--- NOTE | 2024-08-28 09:23 | PC.NURSE ---
Patient discharged home, advised to follow up with GI at 1100 AM this date and return to ED as needed. VSS. No complaints noted upon departure.
[2024-08-28 09:25] VITALS: BP 126/74; PULSE 88; RESP 18; TEMP 36.5; O2SAT 100
== END 2024-08-28 09:26 | disposition home or self-care (01) ==
PROVIDERS: Emergency Provider Student in an Organized Health Care Education/Training Program; PCP Family Medicine
DX: R09.A2 Foreign body sensation, throat (principal); F17.210 Nicotine dependence, cigarettes, uncomplicated
CPT/HCPCS: 99282

== ENCOUNTER 2024-09-09 13:59 | Emergency (ER) | payer BC, SELFPAY ==
[2024-09-09 14:09] VITALS: BP 138/83; PULSE 88; RESP 16; TEMP 37.1; O2SAT 99; BMI 23.6
--- NOTE | 2024-09-09 14:26 | CT_ITS ---
FINAL REPORT TECHNIQUE: Axial imaging of the chest was obtained without contrast. Reformatted images were also obtained and reviewed.This study was performed with techniques to keep radiation doses as low as reasonably achievable, (ALARA). Individualized dose reduction technique using automated exposure control or adjustment of mA and/or kV according to the patient's size were employed. CLINICAL HISTORY: Fluid bolus/globular sensation FINDINGS: There is no axillary adenopathy. There is a calcified right paratracheal lymph node. There is no hilar or mediastinal mass or adenopathy. Heart size is normal. There is no pericardial or pleural effusion. Limited images of the upper abdomen are unremarkable. No suspicious infiltrate or nodule is identified on lung window images. IMPRESSION: No acute process. Reviewed, Interpreted and Dictated by Liam Sunshine MD Transcribed by Mana Lynn Authenticated and . [facility]
--- NOTE | 2024-09-09 14:27 | ECG_ITS ---
APPROVED REPORT Exam: Resting ECG HR:76 bpm ECG Measurements Heart Rate 76 AXES ND 155 P 53 QRSd 85 QRS 68 QT 365 T 19 QTc 396 Conclusion SINUS RHYTHM WITH SINUS ARRHYTHMIA POSSIBLE LEFT ATRIAL ENLARGEMENT [-0.1mV P-WAVE IN V1/V2] POSSIBLE RIGHT VENTRICULAR CONDUCTION DELAY [RSR (QR) IN V1/V2] No STEMI Electronically signed by : KARIN SHARMA, 09/10/2024 02:31:44
--- NOTE | 2024-09-09 14:27 | HMH.EDGENADL ---
Discharge Plan Disposition Patient Disposition: Home, Self-Care Condition: Good Prescriptions Prescriptions: No Action omeprazole 40 MG capsule,delayed release(DR/EC) 40 mg PO DAILY Referrals Follow up/Referrals: Armando Madden MD [Primary Care Provider, Medical] - See instructions Ruby Lin APRN [Nurse Practitioner, Behavioral Health] - See instructions Referral Note: Anxiety Cedrick Patel II, MD [Staff Physician, Gastroenterology] - See instructions Clinical Impressions Clinical Impression: Anxiety, Foreign body sensation, throat Instructions Patient Instructions: Anxiety Disorders, Anxiety and Panic Attacks (Alternative Therapy) Print Language Print Language: Azeri Discharge ED Provider: Wayne Dong General Adult HPI <ROZ Tristan - Last Filed: 09/09/24 15:57> General Chief complaint: Recheck/Abnormal Lab/Rx Stated complaint: Dizzy; Unable to eat; Unable to Swallow Time Seen by Provider: 09/09/24 14:05 Mode of Arrival: Ambulatory Source of Information: Patient and Spouse Description of Symptoms (Recalled from ER Triage Doc. by RN): Reports to Ed w/ c/o feeling like something is stuck in his throat x2 months. reports pt is not eating solid foods and she feels as though he is starving himself . Today pt has only had a yogurt and min fluids. Pt has an EGD scheduled for next month w/ GI. Has also seen his PCP and came to the ED for this complaint previously w/ no relief. Pt visibly anxious and upset during triage. History of Present Illness HPI narrative: 34-year-old male presents emergency department with a globulus sensation/dysphagia for the last 2 months, he is tolerating p.o. liquids and occasionally p.o. solids, however he does have persistent foreign body/globulus sensation has been worked up for this complaint several times by PCP, GI and emergency room visits. He is not found to have obstructing food bolus, however he is slated to see GI next week and is set to have a EGD. Patient today noted some dizziness and fatigue, no presyncopal or syncopal type episodes, no fever no chills no overt chest pain, no shortness of breath, occasional nausea, no vomiting, no constipation no diarrhea, no urinary denies rheumatology, patient is a current everyday smoker, denies any alcohol or other drug use, other past medical history consistent with GERD, generalized anxiety disorder, at the bedside provides some of the medical history, is very concerned about anxiety , states that he is starving himself , she states ever since he was a little kid that he will see things on TV and he believes that he has this . He states he is concerned about dying and leaving my family . Patient was prescribed what sounds like hydroxyzine, and sleep medication , but has not been taking these medications as prescribed he has not yet seen any mental health provider, he actively denies any suicidal ideation or homicidal ideation. Onset (ago): month(s) Related Data Home Medications ?Medication ?Instructions ?Recorded ?Confirmed omeprazole 40 mg capsule,delayed 40 mg PO DAILY GERD 09/17/21 09/09/24 release Allergies Allergy/AdvReac Type Severity Reaction Status Date / Time azithromycin Allergy Intermediate Rash Verified 09/09/24 14:18 shellfish derived Allergy Swelling Verified 09/09/24 14:18 of Lip/Tongue/Throat [facility] <ROZ Tristan - Last Filed: 09/09/24 15:57> [facility] Disclaimer: The information contained in this section may have been updated after the patient was seen, as this information can be updated by other users. Medical History (Updated 09/09/24 @ 15:57 by ROZ Tristan) Anxiety History of gastroesophageal reflux (GERD) Surgical History (Updated 09/09/24 @ 14:17 by Akosua Zavaleta RN) No significant past surgical history Family History Other No significant family history Social History Smoking Status: Current every day smoker tobacco type: cigarettes packs per day: 1 alcohol intake: never substance use type: denies use current occupational status: employed Travel in the last 8 weeks?: None number of children: 1 current occupational exposures/hazards: No Have you lived/traveled outside US in past 30 days?: No Contact w/someone who lives/traveled outside US past 30 days?: No Exposure to someone with infectious disease in past 14 days?: No Do you have a fever (greater than 100.4 F or 38 C)?: No Have you tested positive for COVID-19?: No Exposed to someone with COVID-19 in past 14 days?: No Do you have a sore throat?: No Do you have a cough?: No Do you have any weakness?: Yes Do you have any diarrhea?: No Are you experiencing any unusual bleeding?: No Do you have any muscle aches/pain?: No Do you have any abdominal pain?: No Are you experiencing loss of taste or smell?: No Other Medical History Have you received the Flu Vaccine for this season: No Have you received the Pneumonia Vaccine: No <ROZ Tristan - Last Filed: 09/09/24 15:57> ROS Obtained: Yes All systems reviewed & no additional complaints except as documented Physical Exam <ROZ Tristan - Last Filed: 09/09/24 15:57> General General appearance: alert, in no apparent distress and anxious Comment: Visibly anxious and shaking, quite tearful appearing at the bedside Head Head exam: atraumatic and normocephalic Eye Eye exam: Present PERRL and EOMI ENT ENT exam: Present mucous membranes moist Neck Neck exam: Present normal inspection Chest Chest inspection: Present normal inspection and symmetric chest wall rise Respiratory Respiratory exam: Present normal lung sounds bilaterally; Absent respiratory distress Cardiovascular Cardiovascular exam: Present regular rate and normal rhythm Abdominal Exam Abdominal exam: Present soft; Absent tenderness, guarding, rebound or rigidity Extremities Exam Extremities exam: Present normal inspection Neurological Exam Neurological exam: Present alert and oriented X3 Psychiatric Psychiatric exam: Present anxious and other (Visibly shaking and quite tearful at the bedside); Absent normal affect, homicidal ideation or suicidal ideation Skin Skin exam: Present warm and dry Medical Decision Making <ROZ Tristan - Last Filed: 09/09/24 15:57> Medical Records Medical records reviewed: Yes I reviewed the patient's medical records. Screening: Per USPSTF and CDC recommendations, given the prevalence of disease in our region, it is our hospital?s policy to screen for HIV and viral Hepatitis for all patients aged 18 and over and those with ongoing risk factors. Jim Inquiry Pt receiving controlled substance: No Jim was queried for this patient: No Vital Signs: 09/09/24 14:09 09/09/24 15:01 09/09/24 15:54 Temperature 98.8 F Temperature Source Oral Pulse Rate 73 61 Pulse Rate [Right Brachial] 88 Respiratory Rate 16 18 18 Blood Pressure 105/72 L 109/71 L Blood Pressure [Right Arm] 138/83 Blood Pressure Mean 81 80 Blood Pressure Mean [Right Arm] 101 Blood Pressure Source [Right Arm] Automatic Cuff 02 Sat by Pulse Oximetry 99 99 100 Oxygen Delivery Method Room Air 09/09/24 16:19 Temperature 98.0 F Temperature Source Pulse Rate 59 L Pulse Rate [Right Brachial] Respiratory Rate 19 Blood Pressure 112/76 Blood Pressure [Right Arm] Blood Pressure Mean Blood Pressure Mean [Right Arm] Blood Pressure Source [Right Arm] 02 Sat by Pulse Oximetry Oxygen Delivery Method Lab Data Lab Results 09/09/24 14:35: WBC 7.9, RBC 4.88, Hgb 14.8, Hct 42.0, MCV 86.1, MCH 30.3, MCHC 35.2, RDW 12.7, Plt Count 267, MPV 9.8, Neut % (Auto) 67.3, Lymph % (Auto) 24.7, Twiggs % (Auto) 6.7, Eos % (Auto) 0.8, Baso % (Auto) 0.4, Neut # (Auto) 5.4, Lymph # (Auto) 2.0, Twiggs # (Auto) 0.5, Eos # (Auto) 0.1, Baso # (Auto) 0.0, Sodium 140, Potassium 3.7, Chloride 103, Carbon Dioxide 26, Anion Gap 14.7, BUN 9, Creatinine 0.90, Estimated Creat Clear 115, Estimated GFR 97, Est GFR ( Amer) 117, Glucose 105 H, Calcium 9.6, Magnesium 1.9, Total Bilirubin 0.6, AST 36, ALT 30, Alkaline Phosphatase 81, Total Protein 7.4, Albumin 4.7, Globulin 2.7, Albumin/Globulin Ratio 1.7 09/09/24 14:35 09/09/24 14:35 Orders (Tests/Meds): ED MEDICATIONS Discontinued Medications Generic Name Dose Route Start Last Admin Trade Name Freq PRN Reason Stop Dose Admin Lactated Ringer's 1,000 mls @ 999 mls/hr 09/09/24 14:26 09/09/24 14:33 Lactated Ringer's 1000 Ml Bag IV 09/09/24 15:26 999 mls/hr .Q1H1M ONE Administration ORDERS Category Date Time Status CT chest wo con Stat Cat Scan 09/09/24 14:[address] soft tissue neck wo con Stat Cat Scan 09/09/24 14:58 Completed Complete Blood Count Auto Diff Stat Lab 09/09/24 14:35 Completed Comprehensive Metabolic Panel Stat Lab 09/09/24 14:35 Completed Magnesium Stat Lab 09/09/24 14:35 Completed Medical Decision Narrative: 34-year-old male presents emergency department with multiple medical complaints, see HPI for detail past medical history, differential diagnosis include but not limited to, anxiety reaction, panic attack, illness anxiety disorder, somatic symptom disorder, dysphagia, GERD, gastritis, esophagitis, food bolus among others. I discussed patient case with attending physician Will obtain basic laboratory studies, magnesium level, CT chest without contrast, CT neck without contrast, EKG, will give 1 L LR IV. CMP unremarkable CBC unremarkable I reviewed the patient's CT chest without contrast along the corresponding radiologic report, no acute process. I reviewed the patient's CT soft tissue neck without contrast along the corresponding radiologic report, there is a sialolith in the right submandibular region. Discussed this with the patient again at the bedside, patient knows about this, I do believe the patient has some degree of illness anxiety disorder, will give referral for behavioral health specialist, patient was encouraged to keep appointment with GI physician for EGD next week, patient had witnessed/observed p.o. challenge with p.o. liquids, able to keep p.o. liquids down, no vomiting, no dysphagia to liquids. Patient was given strict ED return precautions. Patient and family voiced understanding and agreement with current treatment plan/discharge plan. Jorge Dean: I was consulted by the MELANIE, and we discussed the complexity of the problems being addressed. I approved the treatment and management plan for this patient's care in the emergency department, thus performing a substantive portion of the medical decision making. I agree with original workup and plan largely pending a transfer of care to the oncoming physician, Dr. Dong. <Jorge Dean MD - Last Filed: 09/09/24 14:57> Vital Signs: 09/09/24 14:09 09/09/24 15:01 09/09/24 15:54 Temperature 98.8 F Temperature Source Oral Pulse Rate 73 61 Pulse Rate [Right Brachial] 88 Respiratory Rate 16 18 18 Blood Pressure 105/72 L 109/71 L Blood Pressure [Right Arm] 138/83 Blood Pressure Mean 81 80 Blood Pressure Mean [Right Arm] 101 Blood Pressure Source [Right Arm] Automatic Cuff 02 Sat by Pulse Oximetry 99 99 100 Oxygen Delivery Method Room Air 09/09/24 16:19 Temperature 98.0 F Temperature Source Pulse Rate 59 L Pulse Rate [Right Brachial] Respiratory Rate 19 Blood Pressure 112/76 Blood Pressure [Right Arm] Blood Pressure Mean Blood Pressure Mean [Right Arm] Blood Pressure Source [Right Arm] 02 Sat by Pulse Oximetry Oxygen Delivery Method Lab Data Lab Results 09/09/24 14:35: WBC 7.9, RBC 4.88, Hgb 14.8, Hct 42.0, MCV 86.1, MCH 30.3, MCHC 35.2, RDW 12.7, Plt Count 267, MPV 9.8, Neut % (Auto) 67.3, Lymph % (Auto) 24.7, Twiggs % (Auto) 6.7, Eos % (Auto) 0.8, Baso % (Auto) 0.4, Neut # (Auto) 5.4, Lymph # (Auto) 2.0, Twiggs # (Auto) 0.5, Eos # (Auto) 0.1, Baso # (Auto) 0.0, Sodium 140, Potassium 3.7, Chloride 103, Carbon Dioxide 26, Anion Gap 14.7, BUN 9, Creatinine 0.90, Estimated Creat Clear 115, Estimated GFR 97, Est GFR ( Amer) 117, Glucose 105 H, Calcium 9.6, Magnesium 1.9, Total Bilirubin 0.6, AST 36, ALT 30, Alkaline Phosphatase 81, Total Protein 7.4, Albumin 4.7, Globulin 2.7, Albumin/Globulin Ratio 1.7 Orders (Tests/Meds): ED MEDICATIONS Discontinued Medications Generic Name Dose Route Start Last Admin Trade Name Freq PRN Reason Stop Dose Admin Lactated Ringer's 1,000 mls @ 999 mls/hr 09/09/24 14:26 09/09/24 14:33 Lactated Ringer's 1000 Ml Bag IV 09/09/24 15:26 999 mls/hr .Q1H1M ONE Administration ORDERS Category Date Time Status CT chest wo con Stat Cat Scan 09/09/24 14:[address] soft tissue neck wo con Stat Cat Scan 09/09/24 14:58 Completed Complete Blood Count Auto Diff Stat Lab 09/09/24 14:35 Completed Comprehensive Metabolic Panel Stat Lab 09/09/24 14:35 Completed Magnesium Stat Lab 09/09/24 14:35 Completed ECG Data Tracing #1: Independently interpreted by me rate of 76, rhythm is regular, axis is normal, no ST elevation in anatomical contiguous leads, QTc 396. Medical Decision Narrative: 34-year-old male presents emergency department with multiple medical complaints, see HPI for detail past medical history, differential diagnosis include but not limited to, anxiety reaction, panic attack, illness anxiety disorder, somatic symptom disorder, dysphagia, GERD, gastritis, esophagitis, food bolus among others. I discussed patient case with attending physician Will obtain basic laboratory studies, magnesium level, CT chest without contrast, EKG, will give 1 L LR IV. Jorge Dean: I was consulted by the MELANIE, and we discussed the complexity of the problems being addressed. I approved the treatment and management plan for this patient's care in the emergency department, thus performing a substantive portion of the medical decision making. I agree with original workup and plan largely pending a transfer of care to the oncoming physician, Dr. Dong. <Wayne Dong MD - Last Filed: 09/09/24 19:04> Vital Signs: 09/09/24 14:09 09/09/24 15:01 09/09/24 15:54 Temperature 98.8 F Temperature Source Oral Pulse Rate 73 61 Pulse Rate [Right Brachial] 88 Respiratory Rate 16 18 18 Blood Pressure 105/72 L 109/71 L Blood Pressure [Right Arm] 138/83 Blood Pressure Mean 81 80 Blood Pressure Mean [Right Arm] 101 Blood Pressure Source [Right Arm] Automatic Cuff 02 Sat by Pulse Oximetry 99 99 100 Oxygen Delivery Method Room Air 09/09/24 16:19 Temperature 98.0 F Temperature Source Pulse Rate 59 L Pulse Rate [Right Brachial] Respiratory Rate 19 Blood Pressure 112/76 Blood Pressure [Right Arm] Blood Pressure Mean Blood Pressure Mean [Right Arm] Blood Pressure Source [Right Arm] 02 Sat by Pulse Oximetry Oxygen Delivery Method Lab Data Lab Results 09/09/24 14:35: WBC 7.9, RBC 4.88, Hgb 14.8, Hct 42.0, MCV 86.1, MCH 30.3, MCHC 35.2, RDW 12.7, Plt Count 267, MPV 9.8, Neut % (Auto) 67.3, Lymph % (Auto) 24.7, Twiggs % (Auto) 6.7, Eos % (Auto) 0.8, Baso % (Auto) 0.4, Neut # (Auto) 5.4, Lymph # (Auto) 2.0, Twiggs # (Auto) 0.5, Eos # (Auto) 0.1, Baso # (Auto) 0.0, Sodium 140, Potassium 3.7, Chloride 103, Carbon Dioxide 26, Anion Gap 14.7, BUN 9, Creatinine 0.90, Estimated Creat Clear 115, Estimated GFR 97, Est GFR ( Amer) 117, Glucose 105 H, Calcium 9.6, Magnesium 1.9, Total Bilirubin 0.6, AST 36, ALT 30, Alkaline Phosphatase 81, Total Protein 7.4, Albumin 4.7, Globulin 2.7, Albumin/Globulin Ratio 1.7 Orders (Tests/Meds): ED MEDICATIONS Discontinued Medications Generic Name Dose Route Start Last Admin Trade Name Freq PRN Reason Stop Dose Admin Lactated Ringer's 1,000 mls @ 999 mls/hr 09/09/24 14:26 09/09/24 14:33 Lactated Ringer's 1000 Ml Bag IV 09/09/24 15:26 999 mls/hr .Q1H1M ONE Administration ORDERS Category Date Time Status CT chest wo con Stat Cat Scan 09/09/24 14:[address] soft tissue neck wo con Stat Cat Scan 09/09/24 14:58 Completed Complete Blood Count Auto Diff Stat Lab 09/09/24 14:35 Completed Comprehensive Metabolic Panel Stat Lab 09/09/24 14:35 Completed Magnesium Stat Lab 09/09/24 14:35 Completed Medical Decision Narrative: 34-year-old male presents emergency department with multiple medical complaints, see HPI for detail past medical history, differential diagnosis include but not limited to, anxiety reaction, panic attack, illness anxiety disorder, somatic symptom disorder, dysphagia, GERD, gastritis, esophagitis, food bolus among others. I discussed patient case with attending physician Will obtain basic laboratory studies, magnesium level, CT chest without contrast, CT neck without contrast, EKG, will give 1 L LR IV. CMP unremarkable CBC unremarkable I reviewed the patient's CT chest without contrast along the corresponding radiologic report, no acute process. I reviewed the patient's CT soft tissue neck without contrast along the corresponding radiologic report, there is a sialolith in the right submandibular region. Discussed this with the patient again at the bedside, patient knows about this, I do believe the patient has some degree of illness anxiety disorder, will give referral for behavioral health specialist, patient was encouraged to keep appointment with GI physician for EGD next week, patient had witnessed/observed p.o. challenge with p.o. liquids, able to keep p.o. liquids down, no vomiting, no dysphagia to liquids. Patient was given strict ED return precautions. Patient and family voiced understanding and agreement with current treatment plan/discharge plan. Jorge Dean: I was consulted by the MELANIE, and we discussed the complexity of the problems being addressed. I approved the treatment and management plan for this patient's care in the emergency department, thus performing a substantive portion of the medical decision making. I agree with original workup and plan largely pending a transfer of care to the oncoming physician, Dr. Dong. I was consulted by the MELANIE, and we discussed the complexity of the problems being addressed. I approved the treatment and management plan for this patient's care in the Emergency Department, thus performing a substantive portion of the medical decision making. Wayne Dong MD Critical Care <Jorge Dean MD - Last Filed: 09/09/24 14:57> Critical Care Time Critical Care Time: No
[2024-09-09] MEDS: LACTATED RINGERS 1000ML 1,000 ML 999 ML IV (14:33)
[2024-09-09 14:40] LABS: Basophils % 0.4 % (0.1-2.0); Eosinophils # 0.1 Kmm3 (0.0-0.4); Eosinophils % 0.8 % (0.1-12.0); Hemoglobin 14.8 g/dL (14.1-18.0); Immature Granulocytes # 0.01 10^3uL; Immature Granulocytes % 0.1 %; Lymphocytes % 24.7 % (10-50); Mean Corpuscular HGB Conc 35.2 g/dL (31.8-35.4); Mean Corpuscular Hemoglobin 30.3 pg (27.0-31.2); Mean Corpuscular Volume 86.1 fl (80-94); Mean Platelet Volume 9.8 fl (7.4-10.4); Monocytes # 0.5 K/mm3 (0.1-1.0); Monocytes % 6.7 % (1.7-9.3); Neutrophils # 5.4 K/mm3 (1.8-7.8); Neutrophils % 67.3 % (37.0-80.0); Nucleated Red Blood Cells # 0 10^3/uL; Nucleated Red Blood Cells % 0 %; Platelet Count 267 K/mm3 (142-424); Red Blood Count 4.88 M/mm3 (4.60-6.20); Red Cell Distribution Width 12.7 % (11.5-17.5); Red Cell Distribution Width-SD 39.6 fL; White Blood Count 7.9 K/mm3 (4.8-10.8)
[2024-09-09 14:50] LABS: Albumin Level 4.7 g/dl (3.5-5.0); Chloride 103 mmol/L (98-107); Sodium 140 mmol/L (136-145)
[2024-09-09 14:51] LABS: Potassium 3.7 mmoL/L (3.5-5.1)
[2024-09-09 14:53] LABS: Alanine Aminotransferase 30 U/L (12-78); Albumin/Globulin Ratio 1.7 (1.1-1.8); Alkaline Phosphatase 81 U/L (38-126); Aspartate Amino Transferase 36 U/L (17-59); Bilirubin,Total 0.6 mg/dl (0.2-1.3); Blood Urea Nitrogen 9 mg/dl (9-20); Calcium 9.6 mg/dl (8.4-10.2); Creatinine Clearance Estimated 115 mL/min (50-200); Estimated Glomerular Filt Rate 97 ml/min (>60); GFR (African American) 117 ML/MIN (>60); Globulin 2.7 g/dL (1.3-3.2); Glucose 105 mg/dl (74-100); Total Protein,Serum 7.4 g/dl (6.3-8.2)
[2024-09-09 14:54] LABS: Magnesium 1.9 mg/dl (1.6-2.3)
--- NOTE | 2024-09-09 14:58 | CT_ITS ---
FINAL REPORT TECHNIQUE: Thin section axial CT images with coronal and sagittal reformats were performed through the neck. This study was performed with techniques to keep radiation doses as low as reasonably achievable (ALARA). Individualized dose reduction techniques using automated exposure control or adjustment of mA and/or kV according to the patient''s size were employed. CLINICAL HISTORY: Dysphagia/globulus sensation COMPARISON: None FINDINGS: No significant mass or adenopathy identified. The paranasal sinuses are well aerated. No localized inflammatory reaction seen. No prevertebral soft tissue abnormality. There is a 7 mm density in the right submandibular region which appears to represent sialolith. This is well seen on image 40 of series 3 and images 22 and 23 of series 1001. IMPRESSION: Sialolith in the right submandibular region. Reviewed, Interpreted and Dictated by Liam Sunshine MD Transcribed by Valeria Rosa Authenticated and [facility]
[2024-09-09 15:01] VITALS: BP 105/72; PULSE 73; RESP 18; O2SAT 99
[2024-09-09 15:09] LABS: Anion Gap 14.7 mEq/L (5-15); Carbon Dioxide 26 mmol/L (22.0-30.0)
[2024-09-09 15:54] VITALS: BP 109/71; PULSE 61; RESP 18; O2SAT 100
[2024-09-09 16:19] VITALS: BP 112/76; PULSE 59; RESP 19; TEMP 36.7; O2SAT 99
== END 2024-09-09 16:21 | disposition home or self-care (01) ==
PROVIDERS: Physician Assistant; Emergency Provider Emergency Medicine; PCP Family Medicine
DX: R09.A2 Foreign body sensation, throat (principal); F41.9 Anxiety disorder, unspecified; F17.210 Nicotine dependence, cigarettes, uncomplicated
CPT/HCPCS: 70490; 71250; 80053; 83735; 85025; 93005; 96360; 99285; J7120

== ENCOUNTER 2024-09-18 10:45 | Day surgery (SDC) | payer BC, SELFPAY ==
[2024-09-17 13:19] VITALS: BMI 22.5
--- NOTE | 2024-09-18 12:03 | EXP.HP ---
History of Present Illness *Admission Date: 09/18/24 *History of present illness: Mr. Guadalupe is a 34-year-old gentleman who is here for diagnostic/therapeutic EGD secondary to dysphagia and globus. He has had acid reflux and is on omeprazole daily. He does get breakthrough symptoms. The examination is deemed medically necessary for EGD. The patient has been seen, interviewed and examined prior to the procedure by both myself and the anesthesia provider. [facility] Disclaimer: The information contained in this section may have been updated after the patient was seen, as this information can be updated by other users. Medical History (Updated 09/18/24 @ 13:12 by Cedrick Patel II, MD) Anxiety History of gastroesophageal reflux (GERD) Surgical History No significant past surgical history Family History Other Anxiety disorder Social History Smoking Status: Current every day smoker tobacco type: cigarettes packs per day: 1 alcohol intake: never substance use type: denies use current occupational status: employed Travel in the last 8 weeks?: None number of children: 1 current occupational exposures/hazards: No Have you lived/traveled outside US in past 30 days?: No Contact w/someone who lives/traveled outside US past 30 days?: No Exposure to someone with infectious disease in past 14 days?: No Do you have a fever (greater than 100.4 F or 38 C)?: No Have you tested positive for COVID-19?: No Exposed to someone with COVID-19 in past 14 days?: No Do you have a sore throat?: No Do you have a cough?: No Do you have any weakness?: No Do you have any diarrhea?: No Are you experiencing any unusual bleeding?: No Do you have any muscle aches/pain?: No Do you have any abdominal pain?: No Are you experiencing loss of taste or smell?: No Other Medical History Have you received the Flu Vaccine for this season: No Have you received the Pneumonia Vaccine: No Review of Systems Review of Systems Review of systems (narrative): Negative *Cardiovascular Comments: Negative *Gastrointestinal Comments: Negative *Genitourinary Comments: Negative *Musculoskeletal Comments: Negative *Neurologic Comments: Negative Meds Home Medications and Allergies Home Medications ?Medication ?Instructions ?Recorded ?Confirmed ?Type omeprazole 40 mg capsule,delayed 40 mg PO DAILY GERD 09/17/21 09/18/24 History release hydroxyzine HCl 25 mg tablet 25 mg PO DAILY Anxiety 09/17/24 09/18/24 History New Prescriptions to Start Prescriptions: Allergies Allergy/AdvReac Type Severity Reaction Status Date / Time azithromycin Allergy Intermediate Rash Verified 09/18/24 12:12 shellfish derived Allergy Swelling Verified 09/18/24 12:12 of Lip/Tongue/Throat Exam Data for Last 24 hours I & O for Last 24 hours: Intake & Output 09/15/24 09/16/24 09/17/24 09/18/24 23:59 23:59 23:59 23:59 Weight 148 lb *Routine HEENT Exam Head: Present normocephalic Eye: Present EOMI and PERRL ENT: Present mucous membranes moist *Routine Neck Exam Neck: Present supple *Routine Respiratory Exam Respiratory: Present CTA bilaterally *Routine Cardiovascular Exam Cardiovascular: Present RRR *Routine Abdominal Exam Abdominal: Present soft and normoactive bowel sounds; Absent tenderness *Routine Rectal Exam Rectal:: deferred *Routine Genitalia Exam Genitalia:: deferred *Routine Extremities Exam Extremities: Absent cyanosis, clubbing or edema *Routine Skin Exam Skin: Present warm; Absent rash *Routine Neurological Exam Neurological: Present alert and oriented X3 Assessment and Plan *Assessment and plan (1) Foreign body sensation, throat: Status: Acute Category: Medical Code(s): R09.A2 - Foreign body sensation, throat (2) Dysphagia: Status: Acute Category: Medical Code(s): R13.10 - Dysphagia, unspecified (3) Acid reflux: Status: Acute Category: Medical Code(s): K21.9 - Gastro-esophageal reflux disease without esophagitis (4) Globus sensation: Status: Acute Category: Medical Code(s): R09.A2 - Foreign body sensation, throat (5) Abnormal weight loss: Status: Acute Category: Medical Code(s): R63.4 - Abnormal weight loss Plan A/P: 1. Dysphagia with globus sensation/foreign body sensation and gastroesophageal reflux is the preprocedural diagnosis. The patient has lost over 30 pounds in the last 4 to 6 weeks. The patient will be anesthetized/sedated using MAC sedation. The patient has been seen and examined. Cardiac and lung assessment prior to the examination is stable. Proceed with planned EGD.
[2024-09-18 12:14] VITALS: BP 130/79; PULSE 57; RESP 20; TEMP 36.3; O2SAT 100
[2024-09-18] MEDS: LACTATED RINGERS 1000ML 1,000 ML 50 ML IV (12:22)
--- NOTE | 2024-09-18 13:03 | P.PNANES_ITS ---
[facility] Disclaimer: The information contained in this section may have been updated after the patient was seen, as this information can be updated by other users. Medical History Anxiety History of gastroesophageal reflux (GERD) Surgical History No significant past surgical history Family History Other Anxiety disorder Social History Smoking Status: Current every day smoker tobacco type: cigarettes packs per day: 1 alcohol intake: never substance use type: denies use current occupational status: employed Travel in the last 8 weeks?: None number of children: 1 current occupational exposures/hazards: No Have you lived/traveled outside US in past 30 days?: No Contact w/someone who lives/traveled outside US past 30 days?: No Exposure to someone with infectious disease in past 14 days?: No Do you have a fever (greater than 100.4 F or 38 C)?: No Have you tested positive for COVID-19?: No Exposed to someone with COVID-19 in past 14 days?: No Do you have a sore throat?: No Do you have a cough?: No Do you have any weakness?: No Do you have any diarrhea?: No Are you experiencing any unusual bleeding?: No Do you have any muscle aches/pain?: No Do you have any abdominal pain?: No Are you experiencing loss of taste or smell?: No [facility] Anesthesia Checklist Patient Identification Patient Identification: Arm Band and Verbal (Name & ) Structural Data Admitted From: Home Planned Operative Procedure/s: EGD Consent for Planned Operative Procedure(s) Verified: Yes Verified Documents: Surgical Consent and History and Physical NPO Status Verified Time NPO: 00:00 Additional verifications Anesthesia Reactions: No Airway Assessment Mallampati Score:: Class II Dentition: Good Dentition Neurological Assessment Level of Consciousness: Awake, Alert and Appropriate Hx Seizures: No Anesthesia Plan Anesthesia Risk discussed: Yes Anesthesia Plan: Verified ASA Class: II Anesthesia Type: MAC
--- NOTE | 2024-09-18 13:13 | P.PCN_ITS ---
[facility] Procedure Note Date: 09/18/24 Time: 13:23 Procedure Note:: Upper Endoscopy Procedure Report: Esophagogastroduodenoscopy with cold biopsies and TTS balloon dilation Endoscopost: Cedrick Patel II, MD Referring Physician: Quan To MD Date of Procedure: September 18, 2024 Equipment: Olympus GIF 190 standard upper endoscope Sedation: MAC sedation Indications: Mr. Guadalupe is a 34-year-old gentleman with swallowing difficulties, dysphagia and some globus sensation. He has a long history of GERD and has been on omeprazole 40 mg daily for about 5 years. His reflux is well-controlled at this time. He does get some belching and gassiness. He also has very loose bowel movements. He has never had an EGD. He reports no present heartburn. He does have a lot of anxiety. The patient does state that he has lost over 30 pounds in the last 4 to 6 weeks because of this. Procedure: Prior to the procedure, a history and physical exam was performed, and patient's medications and allergies were reviewed. The risks, benefits and alternatives of the sedation and procedure were discussed with the patient. All questions were answered and informed consent was obtained. The patient was brought to the procedure room. Patient identification and proposed procedure were verified by the physician and the nurse. The patient was placed in a left lateral decubitus position and the scope was passed under direct vision. Throughout the procedure, the patient's blood pressure, pulse, and oxygen saturations were monitored continuously. The upper GI endoscopy was accomplished without difficulty. The patient tolerated the procedure well. Findings: The scope was passed directly into the upper esophagus and advanced to the fourth portion of duodenum. Cold biopsies were taken from the fourth portion of duodenum for disaccharidase assay. The post bulbar duodenum, ampulla and duodenal bulb were normal with normal mucosa and conniventes. Cold biopsies were taken from the first portion of duodenum and duodenal bulb to rule out celiac disease. The scope was withdrawn through a normal duodenal bulb and pylorus into the stomach. There was bile reflux with mild linear reactive gastropathy of the antrum. There was mild chronic gastritis of the body and fundus. Cold biopsies were taken from the lesser curvature to rule out H. pylori. Upon retroflexion there was a small 2 to 3 cm hiatal hernia. The scope was then withdrawn into the esophagus. There was no evidence of reflux esophagitis. There was a serrated Z-line consistent with nonerosive GERD. There were no rings, corrugation, strictures or webs. There was no candidal esophagitis, furrowing or proximal esophageal inlet patch. Cold biopsies were taken at the GE junction and proximal esophagus to rule out intestinal metaplasia or eosinophilic esophagitis. There were strong tertiary contractions and evidence of moderate esophageal dysmotility. The entire esophagus was dilated to 60 Tamazight/20 mm with a TTS hydrostatic balloon. There was some resistance at the cricopharyngeus. The remainder of the esophageal mucosa was normal. Impression: 1. Cricopharyngeal spasm status post dilation to 20 mm 2. Nonerosive GERD with moderate esophageal dysmotility and small 2 to 3 cm hiatal hernia 3. Mild linear reactive gastropathy of antrum and mild chronic gastritis Plan: I will follow-up the biopsies. The patient does have globus sensation and primarily bile/duodenal reflux. We will discuss treatment options and I will discuss the findings with the patient and family.
[2024-09-18 13:27] VITALS: BP 105/64; PULSE 90; RESP 16; TEMP 36.3; O2SAT 97
[2024-09-18 13:37] VITALS: BP 107/67; PULSE 72; RESP 16; TEMP 36.3; O2SAT 98
[2024-09-18 13:47] VITALS: BP 132/92; PULSE 86; RESP 16; TEMP 36.3; O2SAT 97
[2024-09-18 13:57] VITALS: BP 120/72; PULSE 76; RESP 18; TEMP 36.8; O2SAT 98
[2024-09-24 09:36] LABS: Interpretation Notes (.); Lactase 27.25 (>/= 14.0); Maltase 302.94 (>/= 110.0); Palatinase 20.83 (>/= 8.5); Reference Notes (.); Sucrase 87.18 (>/= 25.0)
== END 2024-09-18 12:20 | disposition home or self-care (01) ==
PROVIDERS: PCP Family Medicine; Visit Provider Internal Medicine Gastroenterology
PROC: 0DJ08ZZ Inspection of Upper Intestinal Tract, Via Natural or Artificial Opening Endoscopic (ICD-10-PCS; CPT 43239; principal; 2024-09-18 12:30)
DX: K21.9 Gastro-esophageal reflux disease without esophagitis (principal); F17.210 Nicotine dependence, cigarettes, uncomplicated; K22.4 Dyskinesia of esophagus; M62.838 Other muscle spasm; K31.89 Other diseases of stomach and duodenum; K29.50 Unspecified chronic gastritis without bleeding; K44.9 Diaphragmatic hernia without obstruction or gangrene; Z79.899 Other long term (current) drug therapy; Z88.0 Allergy status to penicillin; Z91.013 Allergy to seafood
CPT/HCPCS: 43239; 43249; 74360; 82657; C1726; J2003; J2704; J7120

== ENCOUNTER 2025-01-13 08:14 | Emergency (ER) | payer BC, SELFPAY ==
--- OUTSIDE RECORDS SUMMARY | 2024-08-29 10:00 | XMS_ITS ---
[facility] Address [address] [facility] [address] [place] [id number] Care Team Providers Care Chip Tester Name Role Phone Armando Madden Primary Care Provider Nidhi To Unavailable [phone] Allergies No Known Allergies Results Component Value Reference Range Notes P-Comprehensive Metabolic Pa collette (CMP) Reviewed date:09/10/2024 03:29:48 PM Interpretation:satisfactory Performing Lab: Notes/Report: Test performed by [facility] [address] [place], [place] [address] , [address], [place] [address] Ortiz Palma MD, Large Animal Veterinarian CLIA: [id number] Sodium 137 135-145 mmol/L Potassium 4.2 3.5-5.3 mmol/L Chloride 103 97-108 mmol/L CO2 22 22-32 mmol/L Glucose 112 65-99 mg/dL BUN 9 6-20 mg/dL Creatinine 0.84 0.70-1.30 mg/dL Calcium 9.9 8.6-10.4 mg/dL eGFR by Creatinine 117 >59 mL/min/1.73m2 Protein 7.0 6.0-8.3 g/dL Albumin 4.8 3.5-5.3 g/dL Alkaline Phosphatase 99 40-129 IU/L ALT (SGPT) 24 <5-55 IU/L AST (SGOT) 18 <5-46 IU/L Bilirubin, Total 0.4 <0.2-1.2 mg/dL A/G Ratio 2.2 1.1-2.5 P-TSH Reviewed date:09/10/2024 03:29:48 PM Interpretation:Normal Performing Lab: Notes/Report: Test performed by [facility] [address] [place], [place] [address] , [address], [place] [address] Ortiz Palma MD, Large Animal Veterinarian CLIA: [id number] TSH 0.84 0.43-5.25 mU/L REASON FOR VISIT anxiety Medications Medication SIG (Take, Route, Frequency, Duration) Notes Start Date End Date Status SEROquel 25 MG 1 tablet at bedtime Orally Once a day; Duration: 30 days 08/29/2024 Active hydrOXYzine HCl 25 MG 1 Orally as needed ; Duration: 30 days 08/29/2024 Active Esomeprazole Magnesium 40 MG 1 packet 1/2 to 1 hour before morning meal mixed with 15 mL of water Orally Once a day; Duration: 30 days 08/29/2024 Active Omeprazole 40 MG 1 cap(s) orally once a day; Duration: 30 days Active Social History Tobacco Use: Social History Observation Description Date Details (start date - stop date) Current Smoker NA - NA CURRENT TOBACCO USE: Question Answer Notes Are you a: current smoker Patient started smoking at 15 years old and smokes 1 pack a day currently Problems Problem Type SNOMED Code ICD Code Onset Dates Problem Status W/U Status Risk Notes Problem Anxiety (08402083) Anxiety (F41.9) Active confi rmed Problem Gastroesophageal reflux disease without esophagitis (269716301) Gastroesophageal reflux disease without esophagitis (K21.9) Active confirmed Vital Signs Weight 156.0 lbs 08/29/2024 Blood pressure systolic 120 mm Hg 08/30/19 25 Blood pressure diastolic 72 mm Hg 025 Heart Rate 64 /min 08/29/2024 Height 67.5 in 08/29/2024 BMI 24.07 kg/m2 08/29/2024 Encounters Encounter Location Date Provider Diagnosis [facility] [address] [facility] [address] [place] [address], [place] [id number] 08/29/2024 Nidhi To Anxiety F41.9 ; Gastroesophageal reflux disease without esophagitis K21.9 ; Globus sensation R09.A2 and BMI 24.0-24.9, adult Z68.24 Assessments Encounter Date Diagnosis (ICD Code) Assessment Notes Treatment Notes Treatment Clinical Notes Section Notes 08/29/2024 Anxiety (ICD-10 - F41.9) 08/29/2024 Gastroesophageal reflux disease without esophagitis (ICD-10 - K21.9) 08/29/2024 Globus sensation (ICD-10 - R09.A2) 08/29/2024 BMI 24.0-24.9, adult (ICD-10 - Z68.24) Plan Of Treatment Medication Medication Name Sig Start Date Stop Date Notes SEROquel 25 MG 1 tablet at bedtime Orally Once a day; Duration: 30 days 08/29/2024 hydrOXYzine HCl 25 MG 1 Orally as needed ; Duration: 30 days 08/29/2024 Esomeprazole Magnesium 40 MG 1 packet 1/ 2 to 1 hour before morning meal mixed with 15 mL of water Orally Once a day; Duration: 30 days 08/29/2024 Next Appt Details Follow Up: 6 Weeks, Reason: Progress Notes * ERIC BRENNANDOB:[birth year] (34 yo M)Acc No.[id number]:08/29/2024 Progress Notes Patient: ERIC PINO Provider: Nidhi To M.D. :1990 A ge:34 Y S ex:Male Date:08/29/2024 Address:[address] [place] [address] Pcp:Armando Madden Subjective: * Chief Complaints: * 1 . Anxiety. * HPI: P sychology: The pt is here today with c/o increased anxiety over the past 3 weeks. Pt states he was on Hydroxyzine in 2020 but he is not taking that any more. Pt states he feels like his food gets stuck in his throat. Pt states he has been eating mostly yogurt. Pt states today is the first time he has eaten solid foods in 3 weeks. Mother with anxiety and depression. Has been seen at [facility] psych, Yamileth Elliott, [place]. 34 year old male presents with c/o Anxiety. c/o sad or cry easily i ntermittently. Denies : thoughts of hurting self. JARVIS-7 F eeling nervous, anxious or on edge- most of the time,, Not being able to stop or control worrying- most of the time,, Worrying too much about different things- most of the time,, Trouble Relaxing-most of the time,, Being so restless that it's hard to sit still-some times,, Becoming easily annoyed or irritable-most of the time,, Feeling afraid as if something awful might happen-most of the time,, How difficult have the above made it for you to do your work, take care of things at home or get along with other people-somewhat difficult. * ROS: D ERMATOLOGY: no R ruiz. n o H jordy. G ASTROENTEROLOGY: no N ausea. n o V omiting. n o D iarrhea.? U ROLOGY: no D ifficulty urinating. n o B lood in urine. * Medical History: A nxiety, Depression, Polyp on Gallbladder- 07/2020. * Hospitalization/Major Diagno stic Procedure: [facility] ER- Abdominal pain 07/2020, [facility]- Abdominal Pain 07/2020, ER- Abdominal pain dx with polyp on gallbladder 07/2020, [facility] ER- Inguinal Hernia 11/20/2021, [facility] ER - Numbness of the Right Hand 03/28/2022. * Family History: F ather: alive. M other: alive, diagnosed with Mental Illness. P aternal Grand Father: . P aternal Grand Mother: alive. M aternal Grand Father: 75 yrs, lung cancer. M aternal Grand Mother: alive, diagnosed with Mental Illness. 3 brother(s) , 1 sister(s) . 1 daughter(s) - healthy. . 6 Aunts and Uncles passed from cancer Sister: anxiety issues. * Social History: C URRENT TOBACCO USE: Yes A re you a: c urrent smoker Patient started smoking at 15 years old and smokes 1 pack a day currently. C affeine: yes, frequency: 6 cups a day, just drinks tea. Alcohol: no. * Medications: T aking Omeprazole 40 MG Capsule Delayed Release 1 cap(s) orally once a day , Discontinued Medrol 4 MG Tablet Therapy Pack as directed Orally , Discontinued predniSONE 20 MG Tablet 1 tab(s) orally once a day , Discontinued Indomethacin 25 MG Capsule 1 cap(s) orally 3 times a day with food * Allergies: N .K.D.A. Objective: * Vitals: W t: 156.0, Temp: 98.1, BP: 120/72, HR: 64, Nurse: VIJAY, Ht: 67.5, BMI:24.07. * Examination: G eneral Examination: General Appearance: N AD. H EENT: u nremarkable.?Oral cavity: n o lesions, mucosa moist and WNL, no erythema. N estela: s upple, no lymphadenopathy, no thyromegaly. C hest: n ormal shape and expansion. H eart: R SR, no ectopics, no murmurs. L ungs: c lear to auscultation. N eurologic Exam: I ntact, gait normal. S kin: n ormal, no rash. P eripheral pulses: n ormal (2+) bilaterally. E xtremities: n o leg edema. Assessment: * Assessment: 1. A nxiety - F41.9 (Primary) 2 . G astroesophageal reflux disease without esophagitis - K21.9 3 . G lobus sensation - R09.A2 4 . B NE 24.0-24.9, adult - Z68.24 Plan: * Treatment: Value Reference Range A /G Ratio 2.2 1.1-2.5 - * A lbumin 4.8 3.5-5.3 - g/dL * A lkaline Phosphatase 99 40-129 - IU/L * A LT (SGPT) 24 <5-55 - IU/L * A ST (SGOT) 18 <5-46 - IU/L * B ilirubin, Total 0.4 <0.2-1.2 - mg/dL * B UN 9 6-20 - mg/dL * C alcium 9.9 8.6-10.4 - mg/dL * C hloride 103 97-108 - mmol/L * C O2 22 22-32 - mmol/L * C reatinine 0.84 0.70-1.30 - mg/dL * G lucose 112 H 65-99 - mg/dL * P otassium 4.2 3.5-5.3 - mmol/L * S odium 137 135-145 - mmol/L * P rotein 7.0 6.0-8.3 - g/dL * e GFR by Creatinine 117 >59 - mL/min/1.73m2 * Beckie Phillips 09/10/2024 03: 29:31 PM EDT > Patient informed of normal results. ?LAB: P-TSH (Collection Date & Time - 08/30/2024 08:37 AM)?Normal* Value Reference Range T SH 0.84 0.43-5.25 - mU/L * Beckie Phillips 09/10/2024 03: 29:31 PM EDT > Patient informed of normal results. 2.?Gastroesophageal reflux disease without esophagitis? Start Esomeprazole Magnesium Packet, 40 MG, 1 packet 1/2 to 1 hour before morning meal mixed with 15 mL of water, Orally, Once a day, 30 days, 30, Refills 5.?? * Procedure Codes: G 8783 BP SCR PRFRM RCMDD DEFIND SCR INTVL, G8752 MOST RECENT SYSTOLIC BP < 140MM HG, G8754 MOST RECENT DIASTOLIC BP < 90MM HG, G8420 BMI<30 AND >=22 CALC & DOCU * Follow Up: 6 Weeks * Images: Billing Information: * Visit Code: 78069 Office Visit, Est Pt., Level 4. * Procedure Codes: G8783 BP SCR PRFRM RCMDD DEFIND SCR INTVL. G8752 MOST RECENT SYSTOLIC BP < 140MM HG. G8754 MOST RECENT DIASTOLIC BP < 90MM HG. G8420 BMI<30 AND >=22 CALC & DOCU. * Electronic signature of Nidhi To MD on 01/13/2025 at 09:03 AM EST Sign off status: Pending * Provider: Nidhi To M.D. Date: 0 08/29/2024 Generated for [place] johnson/Davon/Josesmcarolina on: 03/15/2024 09:03 AM EST History and Physical Notes * HPI (History of Present Illness) Category Sub-Category Detail Notes Category Not es Psychology sad or cry easily intermittently thoughts of hurting self Anxiety JARVIS-7 Feeling nervous, anx ious or on edge- most of the time,, Not being able to stop or control worrying- most of the time,, Worrying too much about different things-most of the time,, Trouble Relaxing-most of the time,, Being so restless that it's hard to sit still-some times,, Becoming easily annoyed or irritable-most of the time,, Feeling afraid as if something awful might happen-most of the time,, How difficult have the above made it for you to do your work, take care of things at home or get along with other people-somewhat difficult Examination Category Sub-Category Detail Notes Category Not es General Examination HEENT: unremarkable Heart: RSR, no ectopics, no murmurs Lungs: clear to auscultatio n Extremities: no leg edema General Appearance: NAD Skin: normal, no rash Neurologic Exam: Intact, gait normal Neck: supple, no lymphaden opathy, no thyromegaly Oral cavity: no lesions, mucosa m oist and WNL, no erythema Peripheral pulses: normal (2+) bilatera lly Chest: normal shape and exp ansion
--- OUTSIDE RECORDS SUMMARY | 2024-11-07 11:00 | XMS_ITS ---
Author Organization Tom Address [address] [facility] [address] [place] [id number] Care Team Providers Care Quality Control Head Name Role Phone Armando Madden Primary Care Provider Nidhi To [phone] Allergies No Known Allergies REASON FOR VISIT 6 weeks Social History Tobacco Use: Social History Observation Description Date Details (start date - stop date) Current Smoker NA - NA CURRENT TOBACCO USE: Question Answer Notes Are you a: current smoker Patient started smoking at 15 years old and smokes 1 pack a day currently Encounters Encounter Location Date Provider Diagnosis [facility] [address] [place] [id number] 11/07/2024 Nidhi To Plan Of Treatment No Information Progress Notes * ERIC BRENNANDOB:[birth year] (34 yo M)Acc No.[id number]:11/07/2024 Progress Notes Patient: ERIC PINO Provider: Nidhi To M.D. :1990 A ge:34 Y S ex:Male Date:11/07/2024 Address:[address] [place], [place] [id number] Pcp:Armando Madden Subjective: * Chief Complaints: * 1 . 6 weeks. * ROS: D ERMATOLOGY: no R ruiz. n o H jordy. G ASTROENTEROLOGY: no N ausea. n o V omiting. n o D iarrhea.? U ROLOGY: no D ifficulty urinating. n o B lood in urine. * Medical History: A nxiety, Depression, Polyp on Gallbladder- 07/2020. * Hospitalization/Major Diagno stic Procedure: [facility] ER- Abdominal pain 07/2020, [facility]- Abdominal Pain 07/2020, ER- Abdominal pain dx with polyp on gallbladder 07/2020, [facility] ER- Inguinal Hernia 11/20/2021, [facility] ER - Numbness of the Right Hand [...] day, just drinks tea. Alcohol: no. * Allergies: N .K.D.A. Objective: * Vitals: Assessment: Plan: * Treatment: * Images: Billing Information: * Visit Code: * Procedure Codes: * Electronic signature of Nidhi To MD on 01/13/2025 at 09:03 AM EST Sign off status: Pending * Provider: Nidhi To M.D. Date: 0 11/07/2024 Generated for [place] johnson/Davon/Marianoitting on: 03/15/2024 09:03 AM EST
[2025-01-13 08:28] VITALS: BP 121/81; PULSE 74; RESP 16; TEMP 36.7; O2SAT 100; BMI 23.6
[2025-01-13 08:36] LABS: Microscopic, Urine URINE MICROSCOPIC (MICROSCOPIC)
--- NOTE | 2025-01-13 08:37 | ECG_ITS ---
APPROVED REPORT Exam: Resting ECG HR:69 bpm ECG Measurements Heart Rate 69 AXES NH 163 P 70 QRSd 88 QRS 86 QT 354 T 69 QTc 373 Conclusion SINUS RHYTHM WITH SINUS ARRHYTHMIA POSSIBLE RIGHT VENTRICULAR CONDUCTION DELAY [RSR (QR) IN V1/V2] BORDERLINE ECG No STEMI Electronically signed by : KARIN SHARMA, 01/14/2025 05:19:51
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
[2025-01-13 08:54] LABS: Bilirubin,Urine Negative (Negative); Color,Urine YELLOW (Yellow); Glucose,Urine (UA) Negative (Negative); Ketones,Urine Negative (Negative); Leukocyte Esterase,Urine Negative (Negative); PH,Urine 6.0 (5.0-8.5); Protein,Urine Negative (Negative); Specific Gravity, Urine 1.020 (1.005-1.030); Urobilinogen,Urine 0.2 EU/dl (0.2)
[2025-01-13 09:00] VITALS: BP 117/69; PULSE 63; O2SAT 98
--- OUTSIDE RECORDS SUMMARY | 2025-01-13 09:04 | XMS_ITS | Patient Health Record ---
[facility] [address] [facility] [address] [place] [id number] Care Team Providers Care Cycling Instructor Name Role Phone Armando Madden Primary Care Provider [phone] iNdhi To Unavailable [phone] Allergies No Known Allergies Results Component Value Reference Range Notes P-Comprehensive Metabolic Pa collette (CMP) Reviewed date:09/10/2024 03:29:48 PM Interpretation:satisfactory Performing Lab: Notes/Report: Test performed by [facility] [address] [place], [place] [address] , [address], [place] [address] Ortiz Palma MD, Furnace [employer] Equipment Operator CLIA: [id number] Sodium 137 135-145 mmol/L Potassium 4.2 3.5-5.3 [...] Interpretation:Normal Performing Lab: Notes/Report: Test performed by [facility] [address] [place], [place] [address] , [address], [place] [address] Ortiz Palma MD, Furnace And [employer] Equipment Operator CLIA: [id number] TSH 0.84 0.43-5.25 mU/L Reason For Referral No Information Medications Medication SIG (Take, Route, Frequency, Duration) Notes Start Date End Date Status SEROquel 25 MG 1 tablet at bedtime Orally Once a day; Duration: 30 days 08/29/2024 Active hydrOXYzine HCl 25 MG 1 Orally as needed ; Duration: 30 days 08/29/2024 Active Omeprazole 40 MG 1 cap(s) orally once a day; Duration: 30 days Active Esomeprazole Magnesium 40 MG 1 packet 1/2 to 1 hour before morning meal mixed with 15 mL of water Orally Once a day; Duration: 30 days 08/29/2024 Active Immunizations Vaccine Route Administration Date Status Comme nts DT, 7 YEARS OR OLDER Unknown 10/08/2002 Administered HEPB VACC PED/ADOL DOSE IM Unknown 11/16/2001 Administe red HEPB VACC PED/ADOL DOSE IM Unknown 12/27/2001 Administe red HEPB VACC PED/ADOL DOSE IM Unknown 06/11/2002 Administe red MMR Unknown 11/16/2001 Administered Tetanus Tdap-Adacel (over 7yrs) Unknown 06/21/2020 Admi nistered Social History Tobacco Use: Social History Observation Description Date Details (start date - stop date) Current Smoker NA - NA CURRENT TOBACCO USE: Question Answer Notes Are you a: current smoker Patient started smoking at 15 years old and smokes 1 pack a day currently Problems Problem Type SNOMED Code ICD Code Onset Dates Problem Status W/U Status Risk Notes Problem Anxiety (94244170) Anxiety (F41.9) Active confi rmed Problem Mixed anxiety and depressive disorder (403462236) Depression with anxiety (F41.8) Active confirmed Problem Gastroesophageal reflux disease without esophagitis (515052788) Gastroesophageal reflux disease without esophagitis (K21.9) Active confirmed Problem Tobacco user (538678889) Cigarette nicotine dependence without complication (F17.210) Active confirmed Vital Signs Heart Rate 64 /min 08/29/2024 Blood pressure diastolic 72 mm Hg 08/29/2024 Height 67.5 in 08/29/2024 Blood pressure systolic 120 mm Hg 08/29/2024 Weight 156.0 lbs 08/29/2024 BMI 24.07 kg/m2 08/29/2024 Encounters Encounter Location Date Provider Diagnosis [facility] [address] [place] [id number] 08/29/2024 Nidhi To Anxiety F41.9 ; Gastroesophageal [...] adult (ICD-10 - Z68.24) Plan Of Treatment No Information Insurance Providers Payer Name Payer Address Payer Phone Subscriber Number Group Number Insured Name Patient Relationship to Insured Coverage Start Date Coverage End Date [facility] [address] [place] [address] [id number] ERIC BRENNAN Self - patient is the insured Medical (General) History Medical History History ICD Code Anxiety Depression Polyp on Gallbladder- 07/2020 Surgical History Surgery Date(Month/Year) Hospitalization History Reason Date(Month/Year) [facility] ER - Numbness of the Right Hand 03/13 [facility] ER- Inguinal Hernia 11/20/2021 ER- Abdominal pain dx with polyp on g allbladder 07/2020 [facility]- Abdominal Pain 07/2020 [facility] ER- Abdominal pain 07/2020
[2025-01-13 09:29] LABS: Bacteria,Urine Trace /lpf; Mucus,Urine Trace /lpf; Squamous Epithelial Cell,Urine Occasional #/hpf (0-5); WBC,Urine Occasional #/hpf (0-3)
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
--- NOTE | 2025-01-13 10:34 | HMH.ITSTN ---
pt does not have IV yet - will check back soon
[2025-01-13 10:40] VITALS: BP 133/77; PULSE 68; O2SAT 100
[2025-01-13] MEDS: IOPAMIDOL-370 (76%);100ML BOTTLE 75 ML IV (10:59)
[2025-01-13] MEDS: SODIUM CHLORIDE 0.9% 10ML SYR (RAD ONLY) 10 ML IV (10:59)
[2025-01-13 12:10] VITALS: BP 133/77; PULSE 68; RESP 16; TEMP 36.7; O2SAT 100
== END 2025-01-13 12:11 | disposition home or self-care (01) ==
PROVIDERS: Emergency Provider Student in an Organized Health Care Education/Training Program; PCP Family Medicine
DX: R10.11 Right upper quadrant pain (principal); R10.12 Left upper quadrant pain; K52.9 Noninfective gastroenteritis and colitis, unspecified; R30.0 Dysuria; V47.5XXA Car driver injured in collision with fixed or stationary object in traffic accident, initial encounter
CPT/HCPCS: 74177; 81001; 93005; 96374; 99284; 99285; J1200; Q9967